=== PATIENT | male | born 1980 | race Two or more races ===

== ENCOUNTER 2025-01-01 09:18 | Outpatient (AMB) | payer OTHER, SELFPAY ==
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
[2025-01-01 09:24] VITALS: BMI 33.7
--- OUTSIDE RECORDS SUMMARY | 2025-01-01 10:20 | XMS_ITS ---
Author Name [facility] Organization Unknown Care Team Organization Name Specialty Phone Email Start Date End Da te [facility] Baldev Diop Primary [facility] 01/23/2023 [facility] Augusto Mai Primary Care 02/27/202211/20
--- OUTSIDE RECORDS SUMMARY | 2025-01-01 10:20 | XMS_ITS | Clinical Summary ---
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 4 Active sertraline (ZOLOFT) 100 mg tablet Take 1 tablet (100 mg total) by mouth 1 (one) time each day. 4 Active hydrocortisone (ANUSOL-HC) 25 mg suppository Insert 1 suppository (25 mg total) into the rectum 2 (two) times a day. For 14 days 4 Active sodium,potassiu m,mag sulfates (SUPREP) 17.5-3.13-1.6 gram recon soln bowel prep kit oral solution Take 177 mL by mouth See Admin Instructions for 2 doses. 4 Active polyethylene glycol (GoLYTELY) 236-22.74-6.74 -5.86 gram solution Take 240 mL by mouth once for 1 dose. Take 4L by mouth once for one dose. May substitue any PEG. Starting at 6PM the night before your procedure drink 1 8oz glasses at your own pace until rectals run clear. 4 Active amitriptyline (ELAVIL) 10 mg tablet Take 1 tablet (10 mg total) by mouth at bedtime. 4 Active ibuprofen (ADVIL,MOTRIN) 800 mg tablet Take 1 tablet (800 mg total) by mouth every 8 (eight) hours if needed. 4 Active QUEtiapine (SEROquel) 25 mg tablet Take 1 tablet (25 mg total) by mouth 2 (two) times a day. 4 Active traZODone (DESYREL) 150 mg tablet Take 1 tablet (150 mg total) by mouth at bedtime. 4 Active sertraline (ZOLOFT) 50 mg tablet Take 1 tablet (50 mg total) by mouth 1 (one) time each day. 4 Active nicotine (NICODERM CQ) 21 mg/[address] 1 patch on the skin 1 (one) time each day at the same time. For 42 days 4 Active GENERIC EXTERNAL MEDICATION Nifedipine 0.3% ointment Apply as a thin film TID to the perianal skin 9 Active albuterol HFA (ProAir HFA) 90 mcg/actuation inhalerIndicati ons:Routine general medical examination at a health care facility,Chroni c low back pain without sciatica, unspecified back pain laterality,Fibr omyalgia,Cervic al disc herniation,Drug -seeking behavior,Anxiet y,Depression, unspecified depression type,Chronic pain of left ankle,Generaliz ed abdominal pain,Wheeze Inhale 2 puffs by mouth every 4 (four) hours if needed for wheezing or shortness of breath. 8.5 g 5 5 10/21/19 26 Active omeprazole (PriLOSEC) [address] Rouse ons:Routine general medical examination at a health care facility,Chroni c low back pain without sciatica, unspecified back pain laterality,Fibr omyalgia,Cervic al disc herniation,Drug -seeking behavior,Anxiet y,Depression, unspecified depression type,Chronic pain of left ankle,Generaliz ed abdominal pain,Wheeze Take 1 capsule (20 mg total) by mouth 1 (one) time each day before breakfast. Do not crush or chew. 90 capsule 3 5 Active Active Problems Problem Noted Date Diagnosed Date Chronic low back pain without sciatica 5 Cervical disc herniation 04/19/2024 Fibromyalgia 06/03/2019 Drug-seeking behavior 05/15/2019 Depression 08/08/2018 Anal fissure 01/31/2018 Overview (04/19/2024): Follows with general surgery Foraminal stenosis of cervical region 10/04/2017 Overview (04/19/2024): S/p x ray 10/04/2017 Acromioclavicular joint separation, left, sequel a 07/01/2017 Overview (04/19/2024): Follows with orthopedic surgery Anxiety 04/08/2017 Overview (04/19/2024): Follows with [facility] External hemorrhoids 02/12/2017 Positive urine drug screen 07/04/2016 Overview (04/19/2024): +ve cocaine Encounters Date Type Department Care Team Description 10/20/2024 3:43 PM EDT - 10/20/2024 11:59 PM EDT Hospital Encounter [address] [phone] Routine general medical examination at a health care facility; Chronic low back pain without sciatica, unspecified back pain laterality; Fibromyalgia; Cervical disc herniation; Drug-seeking behavior; Anxiety; Depression, unspecified depression type; Chronic pain of left ankle; Generalized abdominal pain; Wheeze Discharge Disposition: Home or Self Care 10/20/2024 3:43 PM EDT - 10/20/2024 11:59 PM EDT Hospital Encounter [address] [phone] Routine general medical examination at a health care facility; Chronic low back pain without sciatica, unspecified back pain laterality; Fibromyalgia; Cervical disc herniation; Drug-seeking behavior; Anxiety; Depression, unspecified depression type; Chronic pain of left ankle; Generalized abdominal pain; Wheeze Discharge Disposition: Home or Self Care 10/20/2024 3:00 PM EDT Office Visit Adult Medicine [address] [phone] Baldev Diop PA Routine general medical examination at a health care facility (Primary Dx); Chronic low back pain without sciatica, unspecified back pain laterality; Fibromyalgia; Cervical disc herniation; Drug-seeking behavior; Anxiety; Depression, unspecified depression type; Chronic pain of left ankle; Generalized abdominal pain; Wheeze from Last 3 Months Immunizations Name Administration Dates Next Due Influenza Quadravalent, MDCK , 0.5ml, with preservative (Flucelvax) 6mo and older 03/01/2021,02/12/2017 Tdap Tetanus diptheria acell ular pertussis (Boostrix; Adacel) 7yo and older 02/12/2017 Surgical History Surgery Date Site/Laterality Comments OTHER SURGICAL HISTORY 2012 PROCEDURE: ---- OTHER ----; COMMENT: lumbar facectomy L5-S1, hemilaminectomy ANKLE SURGERY 2019 Left PROCEDURE: HISTORICAL ANKLE SURGERY; COMMENT: dr pierce COLONOSCOPY 07/31/2023 PROCEDURE: HISTORICAL COLONOSCOPY; COMMENT: 3 polyps 5 years [facility] Medical History Medical History Date Comments Degenerative disc disease at L5-S1 level DX:Degenerative disc disease at L5-S1 level; COMMENT: with lumbar disc herniation. Cervical disc herniation DX:Cerv ical disc herniation External hemorrhoids 02/12/2017 DX:External hemorrhoids Positive urine drug screen 07/04/2016 DX:Po sitive urine drug screen; COMMENT: +ve cocaine Anxiety 04/08/2017 DX:Anxiety; COMM ENT: Follows with [facility] Tobacco use 04/08/2017 DX:Tobacco use Acromioclavicular joint sepa ration, left, sequela 07/01/2017 DX:Acromioclavicular joint separation, left, sequela; COMMENT: Follows with orthopedic surgery Foraminal stenosis of cervical region 10/04/2017 DX:Foraminal stenosis of cervical region; COMMENT: S/p x ray 10/04/2017 Anal fissure 01/31/2018 DX:Anal fissure; COMMENT: Follows with general surgery Depression 08/08/2018 DX:Depression Family History Medical History Relation Name Comments Diabetes Father Colon cancer Maternal Grandfather Depression Mother Colon cancer Paternal Grandfather Diabetes Paternal Grandfather Diabetes Paternal Grandmother Relation Name Status Comments Brother Alive Daughter Alive Father Alive on dialysis Maternal Grandfather Mother Alive Paternal Grandfather Paternal Grandmother Son Alive Social History Tobacco Use Types Packs/Day Years Used Date Smoking Tobacco: Every Day Cigarettes Smokeless Tobacco: Current Tobacco Cessation:Ready to Q uit: Not Asked; Counseling Given: Not Answered Alcohol Use Standard Drinks/Week Comments No 0 (1 standard drink = 0.6 oz pur e alcohol) Sex and Gender Information Value Date Recorded Sex Assigned at Not on file Legal Sex Male 12:15 AM EST Gender Identity Not on file Sexual Orientation Not on file Occupation Industry Job Start Date Job End Date out of work possibly disabled Not on file Not on file Not on file Obstetrics History Last Filed Vital Signs Vital Sign Reading Time Taken Comments Blood Pressure 117/80 10/20/2024 3:06 PM EDT Pulse 89 10/20/2024 3:06 PM EDT Temperature 36.5 C (97.7 F) 10/20/2024 3:06 PM EDT Respiratory Rate 14 10/20/2024 3:06 PM EDT Oxygen Saturation 96% 09/18/2024 3:04 PM EDT Inhaled Oxygen Concentration - - Weight 97.8 kg (215 lb 9.6 oz) 10/20/2024 3:06 P M EDT Height 177.8 cm (5' 10 ) 10/20/2024 3:06 PM EDT Body Mass Index 30.94 10/20/2024 3:06 PM EDT Plan of Treatment Upcoming Encounters Date Type Department Care Team (Late st Contact Info) Description 03/23/2025 3:00 PM EST Office Visit Gastroenterology - [place] [address] [place] [id number] Nan Randall NP 175 [facility] [address] [place] [address] Health Maintenance Due Date Last Done Comments Hepatitis B Vaccines (1 of 3 - 19+ 3-dose series) 2000 Pneumococcal Vaccine: Pediatrics (0 to 5 Years) and At-Risk Patients (6 to 49 Years) (1 of 2 - PCV) 2000 Social Influencers of Health Screening 03/25/2022 Depression Screening 04/22/2024 02/13/2024 COVID-19 Vaccine ( - 2024-2 6 season) 2024 03/22/2021, 03/01/2021 Influenza Vaccine (#1) 2024 , 02/12/2017 DTaP,Tdap,and Td Vaccines (2 - Td or Tdap) 02/12/2027 02/12/2017 Colorectal Cancer Screening: Colonoscopy 07/30/2028 07/31/2023 Cholesterol Screening (Lipid Panel) 10/28/2029 10/28/2024, 07/09/2023 HIV Screening Completed 03/17/2018 Hepatitis C Screening Completed 03/17/2018 HIB Vaccines Aged Out No longer eligi ble based on patient's age to complete this topic HPV Vaccines Aged Out No longer eligi ble based on patient's age to complete this topic Hepatitis A Vaccines Aged Out No long er eligible based on patient's age to complete this topic IPV Vaccines Aged Out No longer eligi ble based on patient's age to complete this topic MMR Vaccines Aged Out No longer eligi ble based on patient's age to complete this topic Meningococcal ACWY Vaccine Aged Out N o longer eligible based on patient's age to complete this topic Meningococcal B Vaccine Aged Out No l onger eligible based on patient's age to complete this topic RSV Immunization Patients Under 20 months Aged Out No longer eligible b ased on patient's age to complete this topic Varicella Vaccines Aged Out No longer eligible based on patient's age to complete this topic Procedures Procedure Name Priority Date/Time Associated Diagnosis Comments HEMOGLOBIN A1C Routine 11/02/2024 8:59 AM EDT Impaired fasting blood sugar HELICOBACTER PYLORI BREATH TEST Routine 10/29/2024 9:24 AM EDT Routine general medical examination at a health care facility Chronic low back pain without sciatica, unspecified back pain laterality Fibromyalgia Cervical disc herniation Drug-seeking behavior Anxiety Depression, unspecified depression type Chronic pain of left ankle Generalized abdominal pain Wheeze CBC WITH AUTO DIFFERENTIAL Routine 10/28/2024 12:05 PM EDT Routine general medical examination at a health care facility Chronic low back pain without sciatica, unspecified back pain laterality Fibromyalgia Cervical disc herniation Drug-seeking behavior Anxiety Depression, unspecified depression type Chronic pain of left ankle Generalized abdominal pain Wheeze URINALYSIS WITH REFLEX MICROSCOPIC Routine 10/28/2024 12:05 PM EDT Routine general medical examination at a health care facility Chronic low back pain without sciatica, unspecified back pain laterality Fibromyalgia Cervical disc herniation Drug-seeking behavior Anxiety Depression, unspecified depression type Chronic pain of left ankle Generalized abdominal pain Wheeze LIPID PANEL WITH REFLEX TO DIRECT LDL Routine 10/28/2024 12:05 PM EDT Routine general medical examination at a health care facility Chronic low back pain without sciatica, unspecified back pain laterality Fibromyalgia Cervical disc herniation Drug-seeking behavior Anxiety Depression, unspecified depression type Chronic pain of left ankle Generalized abdominal pain Wheeze COMPREHENSIVE METABOLIC PANEL Routine 10/28/2024 12:05 PM EDT Routine general medical examination at a health care facility Chronic low back pain without sciatica, unspecified back pain laterality Fibromyalgia Cervical disc herniation Drug-seeking behavior Anxiety Depression, unspecified depression type Chronic pain of left ankle Generalized abdominal pain Wheeze CBC AND DIFFERENTIAL Routine 10/28/2024 12:05 PM EDT Routine general medical examination at a health care facility Chronic low back pain without sciatica, unspecified back pain laterality Fibromyalgia Cervical disc herniation Drug-seeking behavior Anxiety Depression, unspecified depression type Chronic pain of left ankle Generalized abdominal pain Wheeze URINALYSIS WITH REFLEX MICROSCOPIC Routine 10/28/2024 12:05 PM EDT Routine general medical examination at a health care facility Chronic low back pain without sciatica, unspecified back pain laterality Fibromyalgia Cervical disc herniation Drug-seeking behavior Anxiety Depression, unspecified depression type Chronic pain of left ankle Generalized abdominal pain Wheeze CULTURE URINE Routine 10/28/2024 12:05 PM EDT Routine general medical examination at a health care facility Chronic low back pain without sciatica, unspecified back pain laterality Fibromyalgia Cervical disc herniation Drug-seeking behavior Anxiety Depression, unspecified depression type Chronic pain of left ankle Generalized abdominal pain Wheeze XR FOOT 3+ VIEWS LEFT Routine 10/20/2024 3:54 PM EDT Routine general medical examination at a health care facility Chronic low back pain without sciatica, unspecified back pain laterality Fibromyalgia Cervical disc herniation Drug-seeking behavior Anxiety Depression, unspecified depression type Chronic pain of left ankle Generalized abdominal pain Wheeze XR ANKLE 3+ VIEWS LEFT Routine 3:53 PM EDT Routine general medical examination at a health care facility Chronic low back pain without sciatica, unspecified back pain laterality Fibromyalgia Cervical disc herniation Drug-seeking behavior Anxiety Depression, unspecified depression type Chronic pain of left ankle Generalized abdominal pain Wheeze DEPRESSION SCREENING Routine 02/13/2024 HEPATITIS C SCREENING Routine 03/17/2018 HIV SCREENING Routine 03/17/2018 from Last 3 Months or Most Recently Relevant to Health Maintenance Results * Hemoglobin A1c (11/02/2024 8:59 AM EDT) Hemoglobin A1C 6.1 <6.5 % LAB CHEMISTRY METHOD 11/02/2024 12:49 PM EDT [facility] Mean Bld Glu Estim. 128 mg/dL LAB CHEMISTRY METHOD 11/02/2024 12:49 PM EDT [facility] Blood Venous blood specimen / Unknown Venipuncture / Unknown 11/02/2024 8:59 AM EDT 11/02/2024 8:59 AM EDT Baldev GUY LAB BLOOD ORDERABLES Gavi l Result [facility] [address] [place] [address], [place] [phone] * Helicobacter pylori breath test (10/29/2024 9:24 AM EDT) H Pylori Breath Test Negative Negative LAB CHEMISTRY METHOD 10/29/2024 12:12 PM EDT [facility] Breath Oral cavity structure / Unknown Non-blood Collection / Unknown 10/29/2024 9:24 AM EDT 10/29/2024 9:24 AM EDT Baldev GUY LAB BODY FLUIDS AND STOOL S ORDERABLES Final Result [facility] [address] [place] [address], [place] [phone] * (ABNORMAL) Urinalysis with reflex microscopic (10/28/2024 12:05 PM EDT) Specific [place] Urine 1.035(H) 1.003 - 1.030 LAB URINALYSIS - [facility]OMATED [facility], Urine 5.0 5.0 - 8.0 pH LAB URINALYSIS - AUTOMATED METHOD 10/28/2024 3:06 PM [facility] Leukocytes, Urine Negative Negative LAB URINALYSIS - AUTOMATED METHOD 10/28/2024 3:06 PM [facility] Nitrite, Urine Negative Negative LAB URINALYSIS - AUTOMATED METHOD 10/28/2024 3:06 PM [facility] Protein, Urine Trace <=Trace mg/dL LAB URINALYSIS - AUTOMATED METHOD 10/28/2024 3:06 PM [facility] Glucose, Urine Negative Negative mg/dL LAB URINALYSIS - AUTOMATED METHOD 10/28/2024 3:06 PM [facility] Ketones, Urine Trace(A) Negative mg/dL LAB URINALYSIS - AUTOMATED METHOD 10/28/2024 3:06 PM [facility] Urobilinogen, Urine 1.0 0.2 - 1.0 mg/dL LAB URINALYSIS - AUTOMATED METHOD 10/28/2024 3:06 PM [facility] Bilirubin, Urine Negative Negative LAB URINALYSIS - AUTOMATED METHOD 10/28/2024 3:06 PM [facility] Blood, Urine Negative Negative LAB URINALYSIS - AUTOMATED METHOD 10/28/2024 3:06 PM EDT [facility] Urine Urine specimen obtained by clean catch procedure / Unknown Non-blood Collection / Unknown 10/28/2024 12:05 PM EDT 10/28/2024 12:05 PM EDT Baldev GUY LAB URINE ORDERABLES Gavi l Result [facility] [address] [place] [address], [place] [phone] * (ABNORMAL) Lipid panel with reflex to direct LDL (10/28/2024 12:05 PM EDT) Cholesterol 181 0 - 200 mg/dL LAB CHEMISTRY METHOD 10/28/2024 3:26 PM EDT [facility] Triglycerides 346(H) 0 - 150 mg/dL LAB CHEMISTRY METHOD 10/28/2024 3:26 PM EDT [facility] HDL 38(L) >=40 mg/dL LAB CHEMISTRY METHOD 10/28/2024 3:26 PM EDT [facility] LDL Calculated 74 0 - 100 mg/dL LAB CHEMISTRY METHOD 10/28/2024 3:26 PM EDT [facility] VLDL Cholesterol Gabino 69.2 mg/dL LAB CHEMISTRY METHOD 10/28/2024 3:26 PM EDT [facility] Non HDL Chol. (LDL+VLDL) 143 <145 mg/dL LAB CHEMISTRY METHOD 10/28/2024 3:26 PM EDT [facility] Chol/HDL Ratio 4.8(H) 0.0 - 4.4 LAB CHEMISTRY METHOD 10/28/2024 3:26 PM [facility] Blood Venous blood specimen / Unknown Venipuncture / Unknown 10/28/2024 12:05 PM EDT 10/28/2024 12:05 PM EDT Baldev GUY LAB BLOOD ORDERABLES Gavi aguirre Result [facility] [address] [place] [address], * (ABNORMAL) CBC auto differential (10/28/2024 12:05 PM EDT) WBC 7.9 4.8 - 10.8 K/mcL LAB HEMETOLOGY METHOD 10/28/2024 2:58 PM EDT [facility] RBC 5.20 4.50 - 5.50 M/mcL LAB HEMETOLOGY METHOD 10/28/2024 2:58 PM EDT [facility] Hemoglobin 15.6 13.5 - 17.5 g/dL LAB HEMETOLOGY METHOD 10/28/2024 2:58 PM EDT [facility] Hematocrit 47.4 42.0 - 54.0 % LAB HEMETOLOGY METHOD 10/28/2024 2:58 PM EDT [facility] MCV 91.3 79.0 - 98.0 FL LAB HEMETOLOGY METHOD 10/28/2024 2:58 PM EDT [facility] MCH 30.1 27.0 - 32.0 pcg LAB HEMETOLOGY METHOD 10/28/2024 2:58 PM EDT [facility] MCHC 32.9 32.0 - 37.0 g/dL LAB HEMETOLOGY METHOD 10/28/2024 2:58 PM EDT [facility] RDW 13.4 11.0 - 15.0 % LAB HEMETOLOGY METHOD 10/28/2024 2:58 PM EDT [facility] Platelets 310 130 - 400 K/mcL LAB HEMETOLOGY METHOD 10/28/2024 2:58 PM EDT [facility] MPV 11.2(H) 7.0 - 11.0 FL LAB HEMETOLOGY METHOD 10/28/2024 2:58 PM EDT [facility] NRBC 0.0 <1.0 % LAB HEMETOLOGY METHOD 10/28/2024 2:58 PM EDT [facility] NRBC Absolute 0.00 <0.10 K/mcL LAB HEMETOLOGY METHOD 10/28/2024 2:58 PM [facility] Neutrophils Relative 57.6 % LAB [facility]EMETOLOGY METHOD 10/28/2024 2:58 PM [facility] Lymphocytes Relative 34.6 % LAB HEMETOLOGY METHOD 10/28/2024 2:58 PM [facility] Monocytes Relative 5.6 % LAB HEMETOLOGY METHOD 10/28/2024 2:58 PM [facility] Eosinophils Relative 1.5 % LAB HEMETOLOGY METHOD 10/28/2024 2:58 PM [facility] Basophils Relative 0.4 % LAB HEMETOLOGY METHOD 10/28/2024 2:58 PM [facility] Immature Granulocytes Relative 0.3 % LAB HEMETOLOGY METHOD 10/28/2024 2:58 PM [facility] Neutrophils Absolute 4.53 1.50 - 7.00 K/mcL LAB HEMETOLOGY METHOD 10/28/2024 2:58 PM [facility] Lymphocytes Absolute 2.72 1.00 - 5.00 K/mcL LAB HEMETOLOGY METHOD 10/28/2024 2:58 PM [facility] Monocytes Absolute 0.44 0.20 - 1.00 K/mcL LAB HEMETOLOGY METHOD 10/28/2024 2:58 PM [facility] Eosinophils Absolute 0.12 0.00 - 0.50 K/mcL LAB HEMETOLOGY METHOD 10/28/2024 2:58 PM [facility] Basophils Absolute 0.03 0.00 - 0.20 K/mcL LAB HEMETOLOGY METHOD 10/28/2024 2:58 PM EDT [facility] Immature Granulocytes Absolute 0.02 0.00 - 0.03 K/mcL LAB HEMETOLOGY METHOD 10/28/2024 2:58 PM EDT [facility] Blood Venous blood specimen / Unknown Venipuncture / Unknown 10/28/2024 12:05 PM EDT 10/28/2024 12:05 PM EDT Baldev GUY LAB BLOOD ORDERABLES Gavi l Result Performing Organization Address City/[facility]/ZIP Co de Phone Number [facility] [address] [place] [address], [place] [phone] * Culture urine (10/28/2024 12:05 PM EDT) Culture, Urine No growth 10/29/2024 9:55 AM EDT [facility] Urine Urine specimen obtained by clean catch procedure / Unknown Non-blood Collection / Unknown 10/28/2024 12:05 PM EDT 10/28/2024 12:05 PM EDT Baldev GUY LAB MICROBIOLOGY - GENERA L ORDERABLES Final Result Performing Organization Address City/[facility]/ZIP Co de Phone Number [facility] [address] [place] [address], [place] [phone] * (ABNORMAL) Comprehensive metabolic panel (10/28/2024 12:05 PM EDT) Sodium 139 133 - 145 mmol/L LAB CHEMISTRY METHOD 10/28/2024 3:26 PM EDT [facility] Potassium 4.0 3.5 - 5.5 mmol/L LAB CHEMISTRY METHOD 10/28/2024 3:26 PM EDT [facility] Chloride 104 96 - 110 mmol/L LAB CHE[facility]STRY METHOD [facility]/28[facility]2024 3:[facility] CO2 30 21 - 32 mmol/L LAB CHEMISTRY METHOD 10/28/2024 3:26 PM [facility] Anion Gap 5 3 - 11 LAB CHEMISTRY METHOD 10/28/2024 3:26 PM [facility] Glucose 147(H) 70 - 100 mg/dL LAB CHEMISTRY METHOD 10/28/2024 3:26 PM [facility] BUN 14 5 - 25 mg/dL LAB CHEMISTRY METHOD 10/28/2024 3:26 PM [facility] Creatinine 0.98 0.70 - 1.30 mg/dL LAB CHEMISTRY METHOD 10/28/2024 3:26 PM [facility] eGFR 98 >=60 mL/min/1. 73m2 LAB CHEMISTRY METHOD 10/28/2024 3:26 PM [facility] Comment:Calculation based on the Chronic Kidney Disease Epidemiology Collaboration (CKD-EPI) equation refit without adjustment for race. BUN/Creatinine Ratio 14.3 LAB CHEMISTRY METHOD 10/28/2024 3:26 PM [facility] Calcium 9.8 8.5 - 10.5 mg/dL LAB CHEMISTRY METHOD 10/28/2024 3:26 PM [facility] AST (SGOT) 22 10 - 42 unit/L LAB CHEMISTRY METHOD 10/28/2024 3:26 PM [facility] ALT (SGPT) 69(H) 10 - 60 unit/L LAB CHEMISTRY METHOD 10/28/2024 3:26 PM [facility] Alkaline Phosphatase 87 42 - 121 unit/L LAB CHEMISTRY METHOD 10/28/2024 3:26 PM [facility] Total Protein 7.2 6.0 - 8.0 g/dL LAB CHEMISTRY METHOD 10/28/2024 3:26 PM [facility] Albumin 4.1 3.2 - 5.0 g/dL LAB CHEMISTRY METHOD 10/28/2024 3:26 PM EDT [facility] Total Bilirubin 0.3 0.0 - 1.4 mg/dL LAB CHEMISTRY METHOD 10/28/2024 3:26 PM EDT [facility] Blood Venous blood specimen / Unknown Venipuncture / Unknown 10/28/2024 12:05 PM EDT 10/28/2024 12:05 PM EDT Baldev GUY LAB BLOOD ORDERABLES Gavi aguirre Result [facility] [address] [place] [address], * XR Foot 3+ Views Left (10/20/2024 3:54 PM EDT) Anatomical Region Laterality Modality Lower Extremities, Foot Left Radiogra phic Imaging 10/21/2024 8:28 AM EDT Impressions 10/21/2024 8:36 AM EDT No acute bony abnormality. POS - [id number] -------- FINAL REPORT -------- Dictated By: Tiffany Santamaria Dictated Date: 10/21/2024 08:28 ET Assigned Physician: Tiffany Santamaria Reviewed and Electronically Signed By: Tiffany Santamaria Signed Date: 10/21/2024 08:36 ET Workstation ID: [id number] Transcribed By: Self Edit Transcribed Date: 10/21/2024 08:28 ET Narrative 10/21/2024 8:36 AM EDT EXAM: Left foot x-ray HISTORY: Left foot pain. COMPARISON: 02/04/2017 FINDINGS: 3 views were performed. No evidence of an acute fracture or malalignment. Stable deformity of the medial aspect of the talus. Joint spaces are preserved. No new soft tissue calcifications. Procedure Note Tiffany Santamaria MD - 10/21/2024 EXAM: Left foot x-ray HISTORY: Left foot pain. COMPARISON: 02/04/2017 FINDINGS: 3 views were performed. No evidence of an acute fracture or malalignment. Stable deformity of themedial aspect of the talus. Joint spaces are preserved. No new soft tissuecalcifications. IMPRESSION: No acute bony abnormality. POS - [id number] -------- FINAL REPORT -------- Dictated By: Tiffany Santamaria Dictated Date: 10/21/2024 08:28 ET Assigned Physician: Tiffany Santamaria Reviewed and Electronically Signed By: Tiffany Santamaria Signed Date: 10/21/2024 08:36 ET Workstation ID: [id number] Transcribed By: Self Edit Transcribed Date: 10/21/2024 08:28 ET Baldev GUY IMG XR PROCEDURES Final R esult * XR Ankle 3+ Views Left (10/20/2024 3:53 PM EDT) Anatomical Region Laterality Modality Lower Extremities, Ankle Left Radiogr aphic Imaging 10/21/2024 8:36 AM EDT Impressions 10/21/2024 8:40 AM EDT No acute bony abnormality. Chronic findings. POS - [id number] -------- FINAL REPORT -------- Dictated By: Tiffany Santamaria Dictated Date: 10/21/2024 08:36 ET Assigned Physician: Tiffany Santamaria Reviewed and Electronically Signed By: Tiffany Santamaria Signed Date: 10/21/2024 08:40 ET Workstation ID: [id number] Transcribed By: Self Edit Transcribed Date: 10/21/2024 08:36 ET Narrative 10/21/2024 8:40 AM EDT EXAM: Left ankle x-ray HISTORY: Left ankle pain. COMPARISON: 07/09/2023 FINDINGS: No evidence of an acute fracture. Stable deformities of the medial aspect of the talus and involving the medial malleolus. Stable mild widening of the medial clear space. Spurring around the hindfoot with preserved joint spaces. No new destructive bone lesion. Procedure Note Tiffany Santamaria MD - 10/21/2024 EXAM: Left ankle x-ray HISTORY: Left ankle pain. COMPARISON: 07/09/2023 FINDINGS: No evidence of an acute fracture. Stable deformities of the medial aspectof the talus and involving the medial malleolus. Stable mild widening ofthe medial clear space. Spurring around the hindfoot with preserved jointspaces. No new destructive bone lesion. IMPRESSION: No acute bony abnormality. Chronic findings. POS - [id number] -------- FINAL REPORT -------- Dictated By: Tiffany Santamaria Dictated Date: 10/21/2024 08:36 ET Assigned Physician: Tiffany Santamaria Reviewed and Electronically Signed By: Tiffany Santamaria Signed Date: 10/21/2024 08:40 ET Workstation ID: [id number] Transcribed By: Self Edit Transcribed Date: 10/21/2024 08:36 ET Baldev GUY IMG XR PROCEDURES Final R esult * Depression Screening (02/13/2024) Depression Screening abstracted Result [facility] Historical Provider MD HEALTH MAINTENANCE Final Result * HIV Screening (03/17/2018) [facility] HIV Screening abstracted [facility] Provider MD HEALTH MAINTENANCE Final Result * Hepatitis C Screening (03/17/2018) Pathologist [facility] Hepatitis C Screening abstracted [facility] Provider MD HEALTH MAINTENANCE Final Result from Last 3 Months or Most Recently Relevant to Health Maintenance Insurance [employer] [employer] [employer] 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
== END 2025-01-01 10:12 | disposition home or self-care (01) ==
PROVIDERS: PCP Internal Medicine; Visit Provider Student in an Organized Health Care Education/Training Program
DX: M67.472 Ganglion, left ankle and foot (principal); M25.373 Other instability, unspecified ankle; S93.402A Sprain of unspecified ligament of left ankle, initial encounter
CPT/HCPCS: 99204

== ENCOUNTER 2025-01-15 08:59 | Outpatient (AMB) | payer OTHER, SELFPAY ==
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
--- OUTSIDE RECORDS SUMMARY | 2025-01-15 09:35 | XMS_ITS | Clinical Summary ---
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 Name Role Phone Baldev Diop Primary Care Provider [phone] Allergies Active Allergy Reactions Criticality Noted Date [...] surgery Anxiety 04/08/2017 Overview (04/19/2024): Follows with [facility] External hemorrhoids 02/12/2017 Positive urine drug screen 07/04/2016 Overview (04/19/2024): +ve cocaine Encounters Date Type Department Care Team Description 10/20/2024 3:43 PM EDT - 10/20/2024 11:59 PM EDT Hospital Encounter [address] [phone] Routine general medical examination at a health care facility; Chronic low back pain without sciatica, unspecified back pain laterality; Fibromyalgia; Cervical disc herniation; Drug-seeking behavior; Anxiety; Depression, unspecified depression type; Chronic pain of left ankle; Generalized abdominal pain; Wheeze Discharge Disposition: Home or Self Care 10/20/2024 3:43 PM EDT - 10/20/2024 11:59 PM EDT Hospital Encounter [address] [phone] Routine general medical examination at a health care facility; Chronic low back pain without sciatica, unspecified back pain laterality; Fibromyalgia; Cervical disc herniation; Drug-seeking behavior; Anxiety; Depression, unspecified depression type; Chronic pain of left ankle; Generalized abdominal pain; Wheeze Discharge Disposition: Home or Self Care 10/20/2024 3:00 PM EDT Office Visit Adult Medicine [address] [phone] Baldev Diop PA Routine general medical examination [...] Anxiety 04/08/2017 DX:Anxiety; COMM ENT: Follows with [facility] Tobacco use 04/08/2017 DX:Tobacco use Acromioclavicular [...] 3:00 PM EST Office Visit Gastroenterology - [place] [address] [place] [id number] Nan Randall NP 175 [facility] [address] [place] [address] Health Maintenance Due Date Last Done Comments [...] LAB CHEMISTRY METHOD 11/02/2024 12:49 PM EDT [facility] Mean Bld Glu Estim. 128 mg/dL LAB CHEMISTRY METHOD 11/02/2024 12:49 PM EDT [facility] Blood Venous blood specimen / Unknown Venipuncture / Unknown 11/02/2024 8:59 AM EDT 11/02/2024 8:59 AM EDT Baldev GUY LAB BLOOD ORDERABLES Gavi l Result [facility] [address] [place] [address], [place] [phone] * Helicobacter pylori breath test (10/29/2024 9:24 AM EDT) H Pylori Breath Test Negative Negative LAB CHEMISTRY METHOD 10/29/2024 12:12 PM EDT [facility] Breath Oral cavity structure / Unknown Non-blood Collection / Unknown 10/29/2024 9:24 AM EDT 10/29/2024 9:24 AM EDT Baldev GUY LAB BODY FLUIDS AND STOOL S ORDERABLES Final Result [facility] [address] [place] [address], [place] [phone] * (ABNORMAL) Urinalysis with reflex microscopic (10/28/2024 12:05 PM EDT) Specific [place] Urine 1.035(H) 1.003 - 1.030 LAB URINALYSIS - AUTOMATED METHOD [facility] pH, Urine 5.0 5.0 - 8.0 pH LAB URINALYSIS - AUTOMATED METHOD 10/28/2024 3:06 PM [facility] Leukocytes, Urine Negative Negative LAB URINALYSIS - AUTOMATED METHOD 10/28/2024 3:06 PM [facility] Nitrite, Urine Negative Negative LAB URINALYSIS - AUTOMATED METHOD 10/28/2024 3:06 PM [facility] Protein, Urine Trace <=Trace mg/dL LAB URINALYSIS - AUTOMATED METHOD 10/28/2024 3:06 PM [facility] Glucose, Urine Negative Negative mg/dL LAB URINALYSIS - AUTOMATED METHOD 10/28/2024 3:06 PM [facility] Ketones, Urine Trace(A) Negative mg/dL LAB URINALYSIS - AUTOMATED METHOD 10/28/2024 3:06 PM [facility] Urobilinogen, Urine 1.0 0.2 - 1.0 mg/dL LAB URINALYSIS - AUTOMATED METHOD 10/28/2024 3:06 PM [facility] Bilirubin, Urine Negative Negative LAB URINALYSIS - AUTOMATED METHOD 10/28/2024 3:06 PM [facility] Blood, Urine Negative Negative LAB URINALYSIS - AUTOMATED METHOD 10/28/2024 3:06 PM EDT [facility] Urine Urine specimen obtained by clean catch procedure / Unknown Non-blood Collection / Unknown 10/28/2024 12:05 PM EDT 10/28/2024 12:05 PM EDT Baldev GUY LAB URINE ORDERABLES Gavi l Result [facility] [address] [place] [address], [place] [phone] * (ABNORMAL) Lipid panel with reflex to direct LDL (10/28/2024 12:05 PM EDT) Cholesterol 181 0 - 200 mg/dL LAB CHEMISTRY METHOD 10/28/2024 3:26 PM EDT [facility] Triglycerides 346(H) 0 - 150 mg/dL LAB CHEMISTRY METHOD 10/28/2024 3:26 PM EDT [facility] HDL 38(L) >=40 mg/dL LAB CHEMISTRY METHOD 10/28/2024 3:26 PM EDT [facility] LDL Calculated 74 0 - 100 mg/dL LAB CHEMISTRY METHOD 10/28/2024 3:26 PM EDT [facility] VLDL Cholesterol Gabino 69.2 mg/dL LAB CHEMISTRY METHOD 10/28/2024 3:26 PM EDT [facility] Non HDL Chol. (LDL+VLDL) 143 <145 mg/dL LAB CHEMISTRY METHOD 10/28/2024 3:26 PM EDT [facility] Chol/HDL Ratio 4.8(H) 0.0 - 4.4 LAB CHEMISTRY METHOD 10/28/2024 3:26 PM [facility] Blood Venous blood specimen / Unknown Venipuncture / Unknown 10/28/2024 12:05 PM EDT 10/28/2024 12:05 PM EDT Baldev GUY LAB BLOOD ORDERABLES Gavi aguirre Result [facility] [address] [place] [address], * (ABNORMAL) CBC auto differential (10/28/2024 12:05 PM EDT) WBC 7.9 4.8 - 10.8 K/mcL LAB HEMETOLOGY METHOD 10/28/2024 2:58 PM EDT [facility] RBC 5.20 4.50 - 5.50 M/mcL LAB HEMETOLOGY METHOD 10/28/2024 2:58 PM EDT [facility] Hemoglobin 15.6 13.5 - 17.5 g/dL LAB HEMETOLOGY METHOD 10/28/2024 2:58 PM EDT [facility] Hematocrit 47.4 42.0 - 54.0 % LAB HEMETOLOGY METHOD 10/28/2024 2:58 PM EDT [facility] MCV 91.3 79.0 - 98.0 FL LAB HEMETOLOGY METHOD 10/28/2024 2:58 PM EDT [facility] MCH 30.1 27.0 - 32.0 pcg LAB HEMETOLOGY METHOD 10/28/2024 2:58 PM EDT [facility] MCHC 32.9 32.0 - 37.0 g/dL LAB HEMETOLOGY METHOD 10/28/2024 2:58 PM EDT [facility] RDW 13.4 11.0 - 15.0 % LAB HEMETOLOGY METHOD 10/28/2024 2:58 PM EDT [facility] Platelets 310 130 - 400 K/mcL LAB HEMETOLOGY METHOD 10/28/2024 2:58 PM EDT [facility] MPV 11.2(H) 7.0 - 11.0 FL LAB HEMETOLOGY METHOD 10/28/2024 2:58 PM EDT [facility] NRBC 0.0 <1.0 % LAB HEMETOLOGY METHOD 10/28/2024 2:58 PM EDT [facility] NRBC Absolute 0.00 <0.10 K/mcL LAB HEMETOLOGY METHOD 10/28/2024 2:58 PM [facility] Neutrophils Relative 57.6 % LAB HEMETOLOGY METHOD [facility] Lymphocytes Relative 34.6 % LAB HEMETOLOGY METHOD [facility]/28[facility]2024 [facility] Monocytes Relative 5.6 % LAB HEMETOLOGY METHOD 10/28/2024 2:58 PM [facility] Eosinophils Relative 1.5 % LAB HEMETOLOGY METHOD 10/28/2024 2:58 PM [facility] Basophils Relative 0.4 % LAB HEMETOLOGY METHOD 10/28/2024 2:58 PM [facility] Immature Granulocytes Relative 0.3 % LAB HEMETOLOGY METHOD 10/28/2024 2:58 PM [facility] Neutrophils Absolute 4.53 1.50 - 7.00 K/mcL LAB HEMETOLOGY METHOD 10/28/2024 2:58 PM [facility] Lymphocytes Absolute 2.72 1.00 - 5.00 K/mcL LAB HEMETOLOGY METHOD 10/28[facility]2024 2[facility] Monocytes Absolute 0.44 0.20 - 1.00 K/mcL LAB HEMETOLOGY METHOD 10/28/2024 2[facility] Eosinophils Absolute 0.12 0.00 - 0.50 K/mcL LAB HEMETOLOGY METHOD 10/28/2024 2:58 PM [facility] Basophils Absolute 0.03 0.00 - 0.20 K/mcL LAB HEMETOLOGY METHOD 10/28/2024 2:58 PM EDT [facility] Immature Granulocytes Absolute 0.02 0.00 - 0.03 K/mcL LAB HEMETOLOGY METHOD 10/28/2024 2:58 PM EDT [facility] Blood Venous blood specimen / Unknown Venipuncture / Unknown 10/28/2024 12:05 PM EDT 10/28/2024 12:05 PM EDT Baldev GUY LAB BLOOD ORDERABLES Gavi l Result Performing Organization Address City/[facility]/ZIP Co de Phone Number [facility] [address] [place] [address], [place] [phone] * Culture urine (10/28/2024 12:05 PM EDT) Culture, Urine No growth 10/29/2024 9:55 AM EDT [facility] Urine Urine specimen obtained by clean catch procedure / Unknown Non-blood Collection / Unknown 10/28/2024 12:05 PM EDT 10/28/2024 12:05 PM EDT Baldev GUY LAB MICROBIOLOGY - GENERA L ORDERABLES Final Result Performing Organization Address City/[facility]/ZIP Co de Phone Number [facility] [address] [place] [address], [place] [phone] * (ABNORMAL) Comprehensive metabolic panel (10/28/2024 12:05 PM EDT) Sodium 139 133 - 145 mmol/L LAB CHEMISTRY METHOD 10/28/2024 3:26 PM EDT [facility] Potassium 4.0 3.5 - 5.5 mmol/L LAB CHEMISTRY METHOD 10/28/2024 3:26 PM EDT [facility] Chloride 104 96 - 110 mmol/L LAB CHEMISTRY METHOD [facility]/28[facility]2024 [facility] CO2 30 21 - 32 mmol/L LAB CHEMISTRY METHOD 10/28/2024 3:26 PM [facility] Anion Gap 5 3 - 11 LAB CHEMISTRY METHOD 10/28/2024 3:26 PM [facility] Glucose 147(H) 70 - 100 mg/dL LAB CHEMISTRY METHOD 10/28/2024 3:26 PM [facility] BUN 14 5 - 25 mg/dL LAB CHEMISTRY METHOD 10/28/2024 3:26 PM [facility] Creatinine 0.98 0.70 - 1.30 mg/dL LAB CHEMISTRY METHOD 10/28/2024 3:26 PM [facility] eGFR 98 >=60 mL/min/1. 73m2 LAB CHEMISTRY METHOD 10/28/2024 3:26 PM [facility] Comment:Calculation based on the Chronic Kidney Disease Epidemiology Collaboration (CKD-EPI) equation refit without adjustment for race. BUN/Creatinine Ratio 14.3 LAB CHEMISTRY METHOD 10/28/2024 3:26 PM [facility] Calcium 9.8 8.5 - 10.5 mg/dL LAB CHEMISTRY METHOD 10/28/2024 3:26 PM [facility] AST (SGOT) 22 10 - 42 unit/L LAB CHEMISTRY METHOD 10/28/2024 3:26 PM [facility] ALT (SGPT) 69(H) 10 - 60 unit/L LAB CHEMISTRY METHOD 10/28/2024 3:26 PM [facility] Alkaline Phosphatase 87 42 - 121 unit/L LAB CHEMISTRY METHOD 10/28/2024 3:26 PM [facility] Total Protein 7.2 6.0 - 8.0 g/dL LAB CHEMISTRY METHOD 10/28/2024 3:26 PM [facility] Albumin 4.1 3.2 - 5.0 g/dL LAB CHEMISTRY METHOD 10/28/2024 3:26 PM EDT [facility] Total Bilirubin 0.3 0.0 - 1.4 mg/dL LAB CHEMISTRY METHOD 10/28/2024 3:26 PM EDT [facility] Blood Venous blood specimen / Unknown Venipuncture / Unknown 10/28/2024 12:05 PM EDT 10/28/2024 12:05 PM EDT Baldev GUY LAB BLOOD ORDERABLES Gavi aguirre Result [facility] [address] [place] [address], * XR Foot 3+ Views Left (10/20/2024 3:54 PM EDT) Anatomical Region Laterality Modality Lower Extremities, Foot Left Radiogra phic Imaging 10/21/2024 8:28 AM EDT Impressions 10/21/2024 8:36 AM EDT No acute bony abnormality. POS - [id number] -------- FINAL REPORT -------- Dictated By: Tiffayn Santamaria Dictated Date: 10/21/2024 08:28 ET Assigned Physician: Tiffany Santamaria Reviewed and Electronically Signed By: Tiffany Santamaria Signed Date: 10/21/2024 08:36 ET Workstation ID: [id number] Transcribed By: Self Edit Transcribed Date: 10/21/2024 [...] IMPRESSION: No acute bony abnormality. POS - [id number] -------- FINAL REPORT -------- Dictated By: Tiffany Santamaria Dictated Date: 10/21/2024 08:28 ET Assigned Physician: Tiffany Santamaria Reviewed and Electronically Signed By: Tiffany Santamaria Signed Date: 10/21/2024 08:36 ET Workstation ID: [id number] Transcribed By: Self Edit Transcribed Date: 10/21/2024 08:28 ET Baldev GUY IMG XR PROCEDURES Final R esult * XR Ankle 3+ Views Left (10/20/2024 3:53 PM EDT) Anatomical Region Laterality Modality Lower Extremities, Ankle Left Radiogr aphic Imaging 10/21/2024 8:36 AM EDT Impressions 10/21/2024 8:40 AM EDT No acute bony abnormality. Chronic findings. POS - [id number] -------- FINAL REPORT -------- Dictated By: Tiffany Santamaria Dictated Date: 10/21/2024 08:36 ET Assigned Physician: Tiffany Santamaria Reviewed and Electronically Signed By: Tiffany Santamaria Signed Date: 10/21/2024 08:40 ET Workstation ID: [id number] Transcribed By: Self Edit Transcribed Date: 10/21/2024 [...] acute bony abnormality. Chronic findings. POS - [id number] -------- FINAL REPORT -------- Dictated By: Tiffany Santamaria Dictated Date: 10/21/2024 08:36 ET Assigned Physician: Tiffany Santamaria Reviewed and Electronically Signed By: Tiffany Santamaria Signed Date: 10/21/2024 08:40 ET Workstation ID: [id number] Transcribed By: Self Edit Transcribed Date: 10/21/2024 08:36 ET Baldev GUY IMG XR PROCEDURES Final R esult * Depression Screening (02/13/2024) Depression Screening abstracted Result [facility] Historical Provider MD HEALTH MAINTENANCE Final Result * HIV Screening (03/17/2018) [facility] HIV Screening abstracted [facility] Provider MD HEALTH MAINTENANCE Final Result * Hepatitis C Screening (03/17/2018) Pathologist [facility] Hepatitis C Screening abstracted [facility] Provider MD HEALTH MAINTENANCE Final Result from Last 3 Months or Most Recently Relevant to Health Maintenance Insurance [facility] [employer] 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
== END 2025-01-15 09:29 | disposition home or self-care (01) ==
LOC: HO.HPODS 08:59
PROVIDERS: PCP Internal Medicine; Visit Provider Student in an Organized Health Care Education/Training Program
DX: S93.402A Sprain of unspecified ligament of left ankle, initial encounter (principal); M25.373 Other instability, unspecified ankle; M67.472 Ganglion, left ankle and foot; M25.572 Pain in left ankle and joints of left foot; M25.472 Effusion, left ankle
CPT/HCPCS: 99213

== ENCOUNTER → 2025-01-15 08:59 | Outpatient (BNVA) | payer OTHER, SELFPAY | PROVIDERS: PCP Internal Medicine; Visit Provider Student in an Organized Health Care Education/Training Program | DX: S93.402A Sprain of unspecified ligament of left ankle, initial encounter (principal); M25.372 Other instability, left ankle; M67.472 Ganglion, left ankle and foot; M25.572 Pain in left ankle and joints of left foot; M25.472 Effusion, left ankle | CPT/HCPCS: 29540 ==

== ENCOUNTER 2025-01-18 11:58 | Outpatient (REF) | payer OTHER, SELFPAY ==
--- NOTE | ~2025-01-18 | XR_ITS ---
EXAMINATION: XR ANKLE, left CLINICAL INFORMATION: S93.402A - Sprain of unspecified ligament of left ankle, initial encounter COMPARISON: None available. TECHNIQUE: AP, lateral, and mortise views lower extremity joint, ankle. FINDINGS: Ankle mortise is congruent. There is no widening of the syndesmosis. Talar dome is intact. There is a bony spur or exostosis or ossification dorsal to the junction of the talar neck and down, just anterior to the ankle joint. There is a posterior process of talus. There are no calcaneal enthesophyte(s). XR/XR ankle LT min 3V IMPRESSION: Possible anterior ankle impingement. Correlate for signs symptoms. There is a bony prominence anterior the ankle joint and dorsal to the junction of the talar neck and dome. There is a posterior process of talus with degenerative changes. Correlate for posterior ankle pain. Electronically signed by: Bernard Zuluaga MD 01/18/2025 12:23 PM EDT
== END 2025-01-18 11:59 | disposition home or self-care (01) ==
LOC: HO.XRAY 11:58
PROVIDERS: PCP Internal Medicine; Visit Provider Student in an Organized Health Care Education/Training Program
DX: S93.402A Sprain of unspecified ligament of left ankle, initial encounter (principal); M25.373 Other instability, unspecified ankle; M67.472 Ganglion, left ankle and foot
CPT/HCPCS: 73610

== ENCOUNTER → 2025-01-18 12:05 | Outpatient (BNV) | payer OTHER, SELFPAY | PROVIDERS: Visit Provider Radiology Diagnostic Radiology | DX: S93.402A Sprain of unspecified ligament of left ankle, initial encounter (principal) | CPT/HCPCS: 73610 ==

== ENCOUNTER 2025-02-15 13:38 | Outpatient (AMB) | payer OTHER, SELFPAY ==
--- OUTSIDE RECORDS SUMMARY | 2013-01-05 21:00 | XMS_ITS | Continuity of Care Document ---
Author Organization [facility] Address [address] [place] [address] Phone Care Team Providers Care Avp Name Role Phone Bindu Bueno CRNA Unavailable Unavailable Procedures Procedure Date ANESTH, SPINE, CORD SURGERY Advance Directives Directive Yes / No Effective Date File Name No Information Encounters Encounter Description Practice Location Reason(s) For Visit Diagnoses Date Provider Providers Copied on Encounter [facility], [address], [place], [place], [id number], [place] tel:[phone] [facility] No Information 3 Myles Ruano. [address], [place], [place], [id number] , [place]. Family History Family Member Type Diagnosis Age At Onset No Information Payers Payer name Insurance type Covered constitution party ID Authoriza tion(s) Auto [facility] [id number] Social History Type Description Quantity Date Captured [...]
[2025-02-15 13:42] VITALS: BMI 33.7
--- NOTE | 2025-02-15 13:42 | MHC.OFFVIS ---
Vital Signs 02/15/25 13:42 Height 5 ft 7 in Weight 215 lb BMI 33.7 Intake Visit Reasons: fu left ankle pain & xrays Intake Note: Cuong is a 44 year old male who presents today for a follow up on his left ankle pain and X-ray results. Pt reports since his last visit he has not seny improvement and is currently still experiencing pain in his ankle. Printing Table Worker Required: Yes Printing Table Worker Services: Printing Table Worker Present Printing Table Worker Name: [id number] Allergies aspirin Allergy (Verified 02/15/25 13:48) swollen eyes Medication List - Last Reconciled 02/15/25 by Maura Adkins DPM acetaminophen 1,000 mg PO Q6H PRN albuterol sulfate 90 mcg/actuation (Ventolin HFA) inhalation ibuprofen 600 mg PO Q6H omeprazole 20 mg PO DAILY quetiapine 25 mg PO BEDTIME HPI Comments Details: The patient is a 44-year-old male presenting for follow-up of chronic left ankle instability and pain. Patient was seen without the lace-up brace today. The patient reports that the ankle pain is persistent, particularly noticeable upon waking in the morning, and feels as though the bone is going to break down. The patient has been using a brace intermittently, which provides minimal relief. The patient has been taking ibuprofen as needed for pain with mild relief. He denies any new injuries. He denies any new pedal concerns. [facility] Medical History (Updated 02/16/25 @ 14:36 by Maura Adkins DPM) Impingement syndrome of left ankle Left ankle swelling Left ankle pain Ganglion, left ankle and foot Chronic instability of ankle Left ankle sprain Review of Systems Const Details: - Musculoskeletal: Reports persistent left ankle pain, exacerbated by movement and weight-bearing activities. All systems reviewed & are unremarkable except as noted in HPI and below Physical Exam Vital Signs: BMI result Body Mass Index 33.7 Extrem Other: LLE Focused Physical Exam: Derm: Mild edema noted to the left ankle diffusely, but worsened to the lateral aspect of the ankle. Scabbing noted diffusely. No open lesions abrasions or wounds noted. No clinical signs of infection noted. Skin supple and turgor WNL. No ecchymosis or erythema noted. Soft tissue mass noted to the anterior aspect of the lateral gutter of the ankle. Vasc: DP/PT pulses palpable. CFT < 3 secs. TG: warm to warm. Pedal hair present. Pedal hair diminished. No varicosities noted. Neuro: Protective sensations grossly intact, but reports a vibration sensation that radiates from the foot to the tibial tuberosity of the LLE. MSK: Pain on palpation to the left ankle along the lateral gutter, the lateral malleolus, and lateral ankle ligaments. Palpable mass noted to the lateral gutter of the ankle, no change in size noted. ROM of the ankle decreased, with difficulty dorsiflexing, plantar flexion, and eversion due to guarding from pain. No crepitus noted. ROM of the forefoot WNL. Antalgic gait noted unassisted. MMT 4/5. Office Procedures AMB Joint Injection/Aspir Pod Joint Injection/Aspiration Podiatry: Procedure: Left ankle cortisone injection: Cleansed the left ankle with an alcohol swab in the area of the lateral gutter at the most painful location previously marked. Next injected 1 cc of lidocaine plain, 1 cc of dexamethasone, and 1 cc of triamcinolone in the area of the previously marked area with no incidents. A band-aid was applied to the area. Provided patient with after care instructions. LT - Injection of intermediate joint LT Procedure code (CPT) selection complete Office Meds triamcinolone acetonide 40 mg/mL suspension for injection Performing Provider: Maura Adkins DPM Performing Location: [facility] Administered by: Maura Adkins DPM on 02/16/25 14:26 Dose Route Admin Location Dispensed Lot Number Expiration Date [facility] [employer] 20 mg intra-articular 1 mL [id number] [employer] Total Dispensed Waste 1 mL 50 % dexamethasone sodium phosphate 4 mg/mL injection solution Performing Provider: Maura Adkins DPM Performing Location: [facility] Administered by: Maura Adkins DPM on 02/16/25 14:26 Dose Route Admin Location Dispensed Lot Number Expiration Date [facility] [employer] 4 mg intra-articular 1 mL [id number] [employer] Total Dispensed Waste 1 mL 0 % lidocaine HCl 10 mg/mL (1 %) injection solution Performing Provider: Maura Adkins DPM Performing Location: [facility] Administered by: Maura Adkins DPM on 02/16/25 14:26 Dose Route Admin Location Dispensed Lot Number Expiration Date [facility] [employer] Operator 1 mL intra-articular 1 mL [id number] [employer] Total Dispensed Waste 1 mL 0 % Results Reviewed Results Reviewed: Podiatry Read of Left ankle xray (01/18/25): Healed fracture noted to the distal tip of the medial malleolus. Arthritic changes noted to the ankle joint with osteophytic changes and demineralization noted. [place] noted to the anterior aspect of the ankle consistent with anterior ankle impingement. Os trigonum noted. No acute fractures or dislocations ntoed. Left ankle xray (01/18/25): FINDINGS: Ankle mortise is congruent. There is no widening of the syndesmosis. Talar dome is intact. There is a bony spur or exostosis or ossification dorsal to the junction of the talar neck and down, just anterior to the ankle joint. There is a posterior process of talus. There are no calcaneal enthesophyte(s). IMPRESSION: Possible anterior ankle impingement. Correlate for signs symptoms. There is a bony prominence anterior the ankle joint and dorsal to the junction of the talar neck and dome. There is a posterior process of talus with degenerative changes. Correlate for posterior ankle pain. Assessment & Plan Assessment & Plan (1) Left ankle sprain: Code(s): S93.402A - Sprain of unspecified ligament of left ankle, initial encounter Category: Medical Qualifiers: Encounter type: initial encounter Involved ligament of ankle: unspecified ligament Qualified Code(s): S93.402A - Sprain of unspecified ligament of left ankle, initial encounter (2) Chronic instability of ankle: Code(s): M25.373 - Other instability, unspecified ankle Category: Medical (3) Ganglion, left ankle and foot: Code(s): M67.472 - Ganglion, left ankle and foot Category: Medical (4) Left ankle pain: Code(s): M25.572 - Pain in left ankle and joints of left foot Category: Medical Qualifiers: Chronicity: chronic Qualified Code(s): M25.572 - Pain in left ankle and joints of left foot; G89.29 - Other chronic pain (5) Left ankle swelling: Code(s): M25.472 - Effusion, left ankle Category: Medical (6) Impingement syndrome of left ankle: Code(s): M25.872 - Other specified joint disorders, left ankle and foot Category: Medical Plan Patient was informed and verbally consented to the use of an ambient scribe for clinic note documentation during this visit. I discussed with the patient the findings from the x-ray, which showed no current fractures but a previous fracture and bone overgrowth causing impingement. I explained the potential need for surgery to remove the bone overgrowth and alleviate the impingement if pain is persistent, and the importance of obtaining an MRI to assess the ligaments and confirm the extent of the bone issue. I also discussed the administration of a cortisone injection to help manage pain and swelling, and the potential for physical therapy following any surgical intervention. - Ordered an MRI to assess the condition of the ligaments and confirm the extent of bone overgrowth. - Administered a cortisone injection to the left ankle with no incidents. Provided patient with after care instructions. - Advised patient to use the lace up brace as needed with increased activity, and discussed with patient to avoid tightening of the brace when applying it. - Recommend use of ice to reduce swelling, particularly after activity and continuation of RICE protocol. - Patient may take Tylenol or Ibuprofen prn for pain. - Patient may be WBAT to the LLE. RTC in 3 weeks. Orders: Orders MR foot LT wo/w con 02/15/25 M25.373 - Other instability, unspecified ankle, M25.472 - Effusion, left ankle, M25.572 - Pain in left ankle and joints of left foot, M25.872 - Other specified joint disorders, left ankle and foot, M67.472 - Ganglion, left ankle and foot, S93.402A - Sprain of unspecified ligament of left ankle, initial encounter AMB Joint Injection/Aspiration Podiatry 02/15/25 M25.373 - Other instability, unspecified ankle, M25.472 - Effusion, left ankle, M25.572 - Pain in left ankle and joints of left foot, M25.872 - Other specified joint disorders, left ankle and foot, M67.472 - Ganglion, left ankle and foot, S93.402A - Sprain of unspecified ligament of left ankle, initial encounter Medications: Discontinued methylprednisolone (Medrol (Ja)) Discontinued Reason: Patient Completed Course PO PER PKG DIR 21 ea 0RF Left ankle pain M25.373 - Other instability, unspecified ankle, M67.472 - Ganglion, left ankle and foot, S93.402A - Sprain of unspecified ligament of left ankle, initial encounter Coding Level of Care Code Est Pt Level 4 (24564) Diagnoses Sprain of left ankle, unspecified ligament, initial encounter S93.402A Encounter type: initial encounter Involved ligament of ankle: unspecified ligament Chronic instability of ankle M25.373 Ganglion, left ankle and foot M67.472 Chronic pain of left ankle M25.572; G89.29 Chronicity: chronic Left ankle swelling M25.472 Impingement syndrome of left ankle M25.872 CPT Codes Joint injectio/aspiration Podiatry - Joint Injection POD4: [id number] LT - Injection of intermediate joint LT ([id number]) Time Spent (min) 45 Comment 10 mins for procedure
--- OUTSIDE RECORDS SUMMARY | 2025-02-15 17:17 | XMS_ITS | Clinical Summary ---
Author Organization [address] Address [address] [place] [phone] Phone Care Team Providers Care Clerical Administrator Name Role Phone Baldev Diop Primary Care Provider [phone] Allergies Active Allergy Reactions Criticality Noted Date [...] surgery Anxiety 04/08/2017 Overview (04/19/2024): Follows with [facility] psychiatry External hemorrhoids 02/12/2017 Positive urine drug screen 07/04/2016 Overview (04/19/2024): +ve cocaine Immunizations Immunization Administration Dates Next Due Influenza Quadravalent, MDCK [...] Anxiety 04/08/2017 DX:Anxiety; COMM ENT: Follows with [facility] psychiatry Tobacco use 04/08/2017 DX:Tobacco use Acromioclavicular [...] 3:00 PM EST Office Visit Gastroenterology - [address] [place] [address] Nan Randall NP [address] [place] [phone] Health Maintenance Due Date Last Done Comments Hepatitis B Vaccines (1 of 3 - 19+ 3-dose series) 2000 Pneumococcal Vaccine: Pediatrics (0 to 5 Years) and At-Risk Patients (6 to 49 Years) (1 of 2 - PCV) 2000 HPV Vaccines (1 - 3-dose SCD M series) 2008 Social Influencers of Health Screening 03/25/2022 Depression Screening 04/22/2024 02/13/2024 COVID-19 Vaccine (3 - 2024-2 6 season) 2024 03/22/2021, 03/01/2021 Influenza Vaccine (#1) 2024 , 02/12/2017 DTaP,Tdap,and Td Vaccines (2 - Td or Tdap) 02/12/2027 02/12/2017 Colorectal Cancer Screening: Colonoscopy 07/30/2028 07/31/2023 Cholesterol Screening (Lipid Panel) 10/28/2029 10/28/2024, 07/09/2023 RSV Immunization Adult Patients (1 - 1-dose 75+ series) 2056 HIV Screening Completed 03/17/2018 Hepatitis C Screening [...] Procedure Name Priority Date/Time Associated Diagnosis Comments LIPID PANEL WITH REFLEX TO DIRECT LDL [...] Recently Relevant to Health Maintenance Results * (ABNORMAL) Lipid panel with reflex to direct LDL (10/28/2024 12:05 PM EDT) Cholesterol 181 0 - 200 mg/dL LAB CHEMISTRY METHOD 10/28/2024 3:26 PM EDT [facility] Triglycerides 346(H) 0 - 150 mg/dL LAB CHEMISTRY METHOD 10/28/2024 3:26 PM EDT [facility] HDL 38(L) >=40 mg/dL LAB CHEMISTRY METHOD 10/28/2024 3:26 PM EDT [facility] LDL Calculated 74 0 - 100 mg/dL LAB CHEMISTRY METHOD 10/28/2024 3:26 PM EDT [facility] VLDL Cholesterol Gabino 69.2 mg/dL LAB CHEMISTRY METHOD 10/28/2024 3:26 PM T [facility] Non HDL Chol. (LDL+VLDL) 143 <145 mg/dL LAB CHEMISTRY METHOD 10/28/2024 3:26 PM EDT [facility] Chol/HDL Ratio 4.8(H) 0.0 - 4.4 LAB CHEMISTRY METHOD 10/28/2024 3:26 PM [facility] Blood Venous blood specimen / Unknown Venipuncture / Unknown 10/28/2024 12:05 PM EDT 10/28/2024 12:05 PM EDT us Baldev GUY LAB BLOOD ORDERABLES Gavi aguirre Result [facility] [address] [place] [address], * Depression Screening (02/13/2024) Depression Screening abstracted Historical Provider HEALTH MAINTENANCE Final Result * HIV Screening (03/17/2018) HIV Screening abstracted Historical Provider MD HEALTH MAINTENANCE Final Result * Hepatitis C Screening (03/17/2018) Hepatitis C Screening abstracted Historical Provider HEALTH MAINTENANCE Final Result from Last 3 Months or Most Recently Relevant to Health Maintenance Insurance [facility] [employer] Care Teams Clerical Administrator Relationship Specialty Start Date End Date Baldev Diop PA [address] [place] [id number] PCP - General Internal Medicine 07/29/20
== END 2025-02-15 15:33 | disposition home or self-care (01) ==
LOC: HO.HPODS 13:38
PROVIDERS: PCP Internal Medicine; Visit Provider Student in an Organized Health Care Education/Training Program
DX: S93.402A Sprain of unspecified ligament of left ankle, initial encounter (principal); M25.373 Other instability, unspecified ankle; M67.472 Ganglion, left ankle and foot; M25.572 Pain in left ankle and joints of left foot; G89.29 Other chronic pain; M25.472 Effusion, left ankle; M25.872 Other specified joint disorders, left ankle and foot
CPT/HCPCS: 20605; 99214

== ENCOUNTER → 2025-02-15 13:38 | Outpatient (BNVA) | payer OTHER, SELFPAY | PROVIDERS: PCP Internal Medicine; Visit Provider Student in an Organized Health Care Education/Training Program | DX: S93.402A Sprain of unspecified ligament of left ankle, initial encounter (principal); M67.472 Ganglion, left ankle and foot; M25.572 Pain in left ankle and joints of left foot; G89.29 Other chronic pain; M25.472 Effusion, left ankle; M25.872 Other specified joint disorders, left ankle and foot; M25.373 Other instability, unspecified ankle; X58.XXXA Exposure to other specified factors, initial encounter; Y93.9 Activity, unspecified; Y92.9 Unspecified place or not applicable; Y99.9 Unspecified external cause status | CPT/HCPCS: 20605; J1100; J2003; J3301 ==

== ENCOUNTER 2025-03-09 14:11 | Outpatient (REF) | payer OTHER, SELFPAY ==
--- OUTSIDE RECORDS SUMMARY | 2013-01-05 20:00 | XMS_ITS | Continuity of Care Document ---
Author Organization [facility] Address [address] [place] [address] Phone Care Team Providers Care Hydroelectric Production Technician Name Role Phone Bindu Bueno CRNA Unavailable Unavailable Procedures Procedure Date ANESTH, SPINE, CORD SURGERY Advance Directives Directive Yes / No Effective Date File Name No Information Encounters Encounter Description Practice Location Reason(s) For Visit Diagnoses Date Provider Providers Copied on Encounter [facility], [address], [place], [place], [id number], [place] tel:[phone] [facility] No Information 3 Myles Ruano. [address], [place], [place], [id number] , [place]. Family History Family Member Type Diagnosis Age At Onset No Information Payers Payer name Insurance type Covered alliance party ID Authoriza tion(s) Auto [facility] [id number] Social History Type Description Quantity Date Captured Comments Sex Male Smoking Status No Information Chief Complaint And Reason For Visit No Information Reason For Referral Reason For Referral No Information History Of Present Illness Encounter Date Complaint History Of Prese nt Illness No Information Functional Status Date Functional Assessmen t No Information Instructions Date Instruction Additional Infor mation No Information Assessments Type Assessment Date No Information Patient Care Teams Name Effective Dates (start - stop) Status Members No Information
--- OUTSIDE RECORDS SUMMARY | 2013-01-05 20:00 | XMS_ITS | Continuity of Care Document ---
Author Organization [facility] Address [address] [place] [address] Phone Care Team Providers Care Strike Warfare/Missile Systems Officer Name Role Phone Bindu Bueno CRNA Unavailable Unavailable Procedures Procedure Date ANESTH, SPINE, CORD SURGERY Advance Directives Directive Yes / No Effective Date File Name No Information Encounters Encounter Description Practice Location Reason(s) For Visit Diagnoses Date Provider Providers Copied on Encounter [facility], [address], [place], [place], [id number], [place] tel:[phone] [facility] No Information 3 Myles Ruano. [address], [place], [place], [id number] , [place]. Family History Family Member Type Diagnosis Age At Onset No Information Payers Payer name Insurance type Covered democrat ID Authoriza tion(s) Auto [facility] [id number] Social History Type Description Quantity Date Captured [...]
--- OUTSIDE RECORDS SUMMARY | 2013-01-05 20:00 | XMS_ITS | Continuity of Care Document ---
Author Organization [facility] Address [address] [place] [address] Phone Care Team Providers Care Building Official Name Role Phone Bindu Bueno CRNA Unavailable Unavailable Procedures Procedure Date ANESTH, SPINE, CORD SURGERY Advance Directives Directive Yes / No Effective Date File Name No Information Encounters Encounter Description Practice Location Reason(s) For Visit Diagnoses Date Provider Providers Copied on Encounter [facility], [address], [place], [place], [id number], [place] tel:[phone] [facility] No Information 3 Myles Ruano. [address], [place], [place], [id number] , [place]. Family History Family Member Type Diagnosis Age At Onset No Information Payers Payer name Insurance type Covered democrat ID Authoriza tion(s) Auto [facility] [id number] Social History Type Description Quantity Date Captured [...]
--- OUTSIDE RECORDS SUMMARY | 2013-01-05 20:00 | XMS_ITS | Continuity of Care Document ---
Author Organization [facility] Address [address] [place] [address] Phone Care Team Providers Care Solar Sales Consultant Name Role Phone Bindu Bueno CRNA Unavailable Unavailable Procedures Procedure Date ANESTH, SPINE, CORD SURGERY Advance Directives Directive Yes / No Effective Date File Name No Information Encounters Encounter Description Practice Location Reason(s) For Visit Diagnoses Date Provider Providers Copied on Encounter [facility], [address], [place], [place], [address], [place] tel:[phone] [facility] No Information 3 Myles Ruano. [address], [place], [place], [id number] , [place]. Family History Family Member Type Diagnosis Age At Onset No Information Payers Payer name Insurance type Covered constitution party ID Authoriza tion(s) Auto [facility] [id number] Social History Type Description Quantity Date Captured [...]
--- OUTSIDE RECORDS SUMMARY | 2025-03-10 09:49 | XMS_ITS | Encounter Summary ---
Author Organization [facility] Address [address] [place] [address] Care Team Providers Care Insight Leader Name Role Phone Arturo Bansal MD Primary Care Provider + [phone] Baldev Diop PA-C Primary Care Provider [phone] Encounter Details Date Type Department Care Team Description 11/17/2019 Home Health Certification Medical Records [address] [place] [id number] Support [facility] Social History Tobacco Use Types Packs/Day Years Used Date Smoking Tobacco: Every Day Cigarettes 1 24 Smokeless Tobacco: Current Alcohol Use Standard Drinks/Week Comments No 0 (1 standard drink = 0.6 oz pur e alcohol) Sex Assigned at Date Recorded Not on file Job Start Date Occupation Industry Not on file Not on file Not on file documented as of this encounter Plan of Treatment Not on file documented as of this encounter Visit Diagnoses Not on filedocumented in this encounter Care Teams Insight Leader Relationship Specialty Start Date End Date Arturo Bansal MD [address] [place] [phone] PCP - General Internal Medicine 07/14/19 07/28/20 Baldev Diop PA-C [address] [place] [address] [phone] PCP - General Internal Medicine 07/29/20 documented as of this encounter
--- OUTSIDE RECORDS SUMMARY | 2025-03-10 09:49 | XMS_ITS | Encounter Summary ---
Author Organization [facility] Address [address] [place] [address] Care Team Providers Care Net Technical Architect Name Role Phone Atruro Bansal MD Primary Care Provider + [phone] Baldev Diop PA-C Primary Care Provider [phone] Reason for Visit * Reason Onset Date Comments Faxed Order 12/14/2019 Encounter Details Date Type Department Care Team Description 12/14/2019 Telephone Adult Medicine [address] [address] Arturo Bansal MD [address] [place] [address] [phone] Faxed Order Social History Tobacco Use Types Packs/Day Years Used Date Smoking Tobacco: Every Day Cigarettes 1 24 Smokeless Tobacco: Current Alcohol Use Standard Drinks/Week Comments No 0 (1 standard drink = 0.6 oz pur e alcohol) Sex Assigned at Date Recorded Not on file Job Start Date Occupation Industry Not on file Not on file Not on file documented as of this encounter Miscellaneous Notes * Telephone Encounter - Derek Bee - 12/14/2019 9:00 AM EDT Orders to be signed and faxed documented in this encounter Plan of Treatment Not on file documented as of this encounter Visit Diagnoses Not on filedocumented in this encounter Care Teams Net Technical Architect Relationship Specialty Start Date End Date Arturo Bansal MD [address] [place] [address] [phone] PCP - General Internal Medicine 07/14/19 07/28/20 Baldev Diop PA-C [address] [place] [phone] PCP - General Internal Medicine 07/29/20 documented as of this encounter
--- OUTSIDE RECORDS SUMMARY | 2025-03-10 09:50 | XMS_ITS | Encounter Summary ---
Author Organization [facility] Address [address] [place] [address] Care Team Providers Care Public Area Supervisor Name Role Phone Arturo Bansal MD Primary Care Provider + [phone] Baldev Diop PA-C Primary Care Provider [phone] Reason for Visit * Reason Onset Date Comments Faxed Order 04/10/2020 Encounter Details Date Type Department Care Team Description 04/10/2020 Telephone Adult Medicine [address] [address] Arturo Bansal MD [address] [place] [phone] Faxed Order Social History Tobacco Use Types [...] encounter Miscellaneous Notes * Telephone Encounter - Marisel Cast - 04/10/2020 3:18 PM EST [facility] IS FAXING ORDERS TO BE SIGN AND FAX BACK TO [phone]. documented in this encounter Plan of Treatment Not on file documented as of this encounter Visit Diagnoses Not on filedocumented in this encounter Care Teams Public Area Supervisor Relationship Specialty Start Date End Date Arturo Bansal MD [address] [place] [address] PCP - General Internal Medicine 07/14/19 07/28/20 Baldev Diop PA-C [address] [place] [phone] PCP - General Internal Medicine 07/29/20 documented as of this encounter
--- OUTSIDE RECORDS SUMMARY | 2025-03-10 09:50 | XMS_ITS | Clinical Summary ---
Author Organization [address] Address [address] [place] [phone] Phone Care Team Providers Care Channel Lip Stiffener Insoles Name Role Phone Baldev Diop Primary Care Provider [phone] Allergies Active Allergy Reactions Criticality Noted Date [...] surgery Anxiety 04/08/2017 Overview (04/19/2024): [facility]s with [facility] External hemorrhoids 02/12/2017 Positive urine drug screen 07/04/2016 Overview (04/19/2024): +ve cocaine Encounters Date Type Department Care Team Description 02/18/2025 1:00 PM EDT Ancillary Procedure Pulmonology - [address] [place] [address] from Last 3 Months Immunizations Immunization Administration Dates Next Due Influenza [...] Anxiety 04/08/2017 DX:Anxiety; COMM ENT: Follows with [facility] psychiatry Tobacco use 04/08/2017 DX:Tobacco use [...] Office Visit Gastroenterology - [address] [facility] [address] [place] [address] Nan Randall, TASHA [address] [facility] [address] [place] [address] Health Maintenance Due Date Last Done Comments [...] mg/dL LAB CHEMISTRY METHOD 10/28/2024 3:26 PM [facility] Triglycerides 346(H) 0 - 150 mg/dL LAB CHEMISTRY METHOD 10/28/2024 3:26 PM [facility] HDL 38(L) >=40 mg/dL LAB CHEMISTRY METHOD 10/28/2024 3:26 PM [facility] LDL Calculated 74 0 - 100 mg/dL LAB CHEMISTRY METHOD 10/28/2024 3:26 PM [facility] VLDL Cholesterol Gabino 69.2 mg/dL LAB CHEMISTRY METHOD 10/28/2024 3:26 PM [facility] Non HDL Chol. (LDL+VLDL) 143 <145 mg/dL LAB CHEMISTRY METHOD 10/28/2024 3:26 PM [facility] Chol/HDL Ratio 4.8(H) 0.0 - 4.4 LAB CHEMISTRY METHOD 10/28/2024 3:26 PM [facility] Blood Venous blood specimen / Unknown Venipuncture / Unknown 10/28/2024 12:05 PM EDT 10/28/2024 12:05 PM EDT Baldev GUY LAB BLOOD ORDERABLES Gavi l Result [facility] ([facility] [address] [place] [address], [place] [phone] * Depression Screening (02/13/2024) Depression Screening abstracted Historical Provider MD HEALTH MAINTENANCE Final Result * HIV Screening (03/17/2018) HIV Screening abstracted Historical Provider HEALTH MAINTENANCE Final Result * Hepatitis C Screening (03/17/2018) Hepatitis C Screening abstracted Historical Provider HEALTH MAINTENANCE Final Result from Last 3 Months or Most Recently Relevant to Health Maintenance Insurance [facility] [employer] Care Teams Channel Lip Stiffener Insoles Relationship Specialty Start Date End Date Baldev Diop PA [address] [place] [phone] PCP - General Internal Medicine 07/29/20
--- OUTSIDE RECORDS SUMMARY | 2025-03-10 09:51 | XMS_ITS | Encounter Summary ---
Author Organization [facility] Address [address] [place] [address] Care Team Providers Care Polisher Dial Name Role Phone Arturo Bansal MD Primary Care Provider + [phone] Baldev Diop PA-C Primary Care Provider + [phone] Reason for Visit * Reason Onset Date Comments Faxed Order 04/21/2020 Encounter Details Date Type Department Care Team Description 04/21/2020 Telephone Adult Medicine [address] [address] Arturo Bansal MD [address] [place] [phone] Faxed Order Social History Tobacco Use Types [...] * Telephone Encounter - Marisel Cast - 04/21/2020 2:05 PM EST [facility] IS FAXING ORDERS TO BE SIGN AND FAX BACK TO [phone]. documented in this encounter Plan of Treatment Not on file documented as of this encounter Visit Diagnoses Not on filedocumented in this encounter Care Teams Polisher Dial Relationship Specialty Start Date End Date Arturo Bansal MD [address] [place] [address] PCP - General Internal Medicine 07/14/19 07/28/20 Baldev Diop PA-C [address] [place] [phone] PCP - General Internal Medicine 07/29/20 documented as of this encounter
--- OUTSIDE RECORDS SUMMARY | 2025-03-10 09:51 | XMS_ITS | Encounter Summary ---
Author Organization [facility] Address [address] [place] [address] Care Team Providers Care Production Illustrator Name Role Phone Arturo Bansal MD Primary Care Provider + [phone] Baldev Diop PA-C Primary Care Provider [phone] Reason for Visit * Reason Onset Date Comments Faxed Order 04/19/2020 Encounter Details Date Type Department Care Team Description 04/19/2020 Telephone Adult Medicine [address] [address] Arturo Bansal MD [address] [place] [phone] Faxed Order Social History Tobacco Use Types [...] * Telephone Encounter - Marisel Cast - 04/19/2020 3:56 PM EST [facility] IS FAXING ORDERS TO BE SIGN AND FAX BACK TO [phone]. documented in this encounter Plan of Treatment Not on file documented as of this encounter Visit Diagnoses Not on filedocumented in this encounter Care Teams Production Illustrator Relationship Specialty Start Date End Date Arturo Bansal MD [address] [place] [address] PCP - General Internal Medicine 07/14/19 07/28/20 Baldev Diop PA-C [address] [place] [phone] PCP - General Internal Medicine 07/29/20 documented as of this encounter
--- OUTSIDE RECORDS SUMMARY | 2025-03-10 09:52 | XMS_ITS | Encounter Summary ---
Author Organization [facility] Address [address] [place] [address] Care Team Providers Care Home Inspector Name Role Phone Anuja Nunes MD Primary Care Provider Unavail able Sammy Valverde MD Primary Care Provider Un available Tej Yoon MD Primary Care Provider [phone] Arturo Bansal MD Primary Care Provider + [phone] Baldev Diop PA-C Primary Care Provider +[phone] Encounter Details Date Type Department Care Team Description 05/24/2017 Release of Information Medical Records [address] [place] [address]751 Abstract, Provider Social History Tobacco Use Types Packs/Day Years [...] on filedocumented in this encounter Care Teams Home Inspector Relationship Specialty Start Date End Date Anuja Nunes MD PCP - General Internal Medicine 05/22/16 01/29/18 Sammy Valverde MD PCP - General Internal Medicine 01/30/1802/09 Tej Yoon MD [address] [place] [address] PCP - General Internal Medicine 02/10/19 07/13/19 Arturo Bansal MD [address] [place] [address] [phone] PCP - General Internal Medicine 07/14/19 07/28/20 Baldev Diop PA-C [address] [place] [address] 14898 PCP - General Internal Medicine 07/29/20 documented as of this encounter
--- OUTSIDE RECORDS SUMMARY | 2025-03-10 09:52 | XMS_ITS | Encounter Summary ---
Author Organization [facility] Address [address] [place] [address] Care Team Providers Care Critical Care Specialist Name Role Phone Anuja Nunes MD Primary Care Provider Unavail able Sammy Valverde MD Primary Care Provider Un available Tej Yoon MD Primary Care Provider [phone] Arturo Bansal MD Primary Care Provider + [phone] Baldev Diop PA-C Primary Care Provider + [phone] Encounter Details Date Type Department Care Team Description 04/24/2017 Grinding Mill Operator Report Medical Records [address] [place] [address] Jaime Reynoso PA-C [address] [place] [address] [phone] Social History Tobacco Use Types Packs/Day Years [...] on filedocumented in this encounter Care Teams Critical Care Specialist Relationship Specialty Start Date End Date Anuja Nunes MD PCP - General Internal Medicine 05/22/16 01/29/18 Sammy Valverde MD PCP - General Internal Medicine 01/30/1802/09 Tej Yoon MD [address] [place] [address] [phone] PCP - General Internal Medicine 02/10/19 07/13/19 Arturo Bansal MD [address] [place] [address] PCP - General Internal Medicine 07/14/19 07/28/20 Baldev Diop PA-C [address] [place] [address] 10[address] PCP - General Internal Medicine 07/29/20 documented as of this encounter
--- OUTSIDE RECORDS SUMMARY | 2025-03-10 09:52 | XMS_ITS | Encounter Summary ---
Author Organization [facility] Address [address] [place] [address] Care Team Providers Care Lifeline Representatives Name Role Phone Anuja Nunes MD Primary Care Provider Unavail able Sammy Valverde MD Primary Care Provider Un available Tej Yoon MD Primary Care Provider [phone] Arturo Bansal MD Primary Care Provider + [phone] Baldev Diop PA-C Primary Care Provider + [phone] Encounter Details Date Type Department Care Team Description 06/13/2017 Wall Covering Contractor Report Medical Records [address] [place] [address] 90034 Elvin Varma MD Social History Tobacco Use Types Packs/Day Years [...] on filedocumented in this encounter Care Teams Lifeline Representatives Relationship Specialty Start Date End Date Anuja Nunes MD PCP - General Internal Medicine 05/22/16 01/29/18 Sammy Valverde MD PCP - General Internal Medicine 01/30/1802/09 Tej Yoon MD [address] [place] [address] PCP - General Internal Medicine 02/10/19 07/13/19 Arturo Bansal MD [address] [place] [address] PCP - General Internal Medicine 07/14/19 07/28/20 Baldev Diop PA-C [address] [place] [address] PCP - General Internal Medicine 07/29/20 documented as of this encounter
--- OUTSIDE RECORDS SUMMARY | 2025-03-10 09:53 | XMS_ITS | Encounter Summary ---
Author Organization [facility] Address [address] [place] [address] Care Team Providers Care Relief Worker Name Role Phone Anuja Nunes MD Primary Care Provider Unavail able Sammy Valverde MD Primary Care Provider Un available Tej Yoon MD Primary Care Provider [phone] Arturo Bansal MD Primary Care Provider + [phone] Baldev Diop PA-C Primary Care Provider + [phone] Encounter Details Date Type Department Care Team Description 06/05/2017 Three Dimensional Map Modeler Report Medical Records [address] [place] [address] Jaime Reynoso PA-C [address] [place] [address] [phone] Social History Tobacco Use Types Packs/Day Years [...] on filedocumented in this encounter Care Teams Relief Worker Relationship Specialty Start Date End Date Anuja Nunes MD PCP - General Internal Medicine 05/22/16 01/29/18 Sammy Valverde MD PCP - General Internal Medicine 01/30/1802/09 Tej Yoon MD [address] [place] [address] [phone] PCP - General Internal Medicine 02/10/19 07/13/19 Arturo Bansal MD [address] [place] [address] PCP - General Internal Medicine 07/14/19 07/28/20 Baldev Diop PA-C [address] [place] [address] PCP - General Internal Medicine 07/29/20 documented as of this encounter
--- OUTSIDE RECORDS SUMMARY | 2025-03-10 09:54 | XMS_ITS | Encounter Summary ---
Author Organization [facility] Address [address] [place] [address] Care Team Providers Care House Sitter Name Role Phone Arturo Bansal MD Primary Care Provider + [phone] Baldev Diop PA-C Primary Care Provider + [phone] Reason for Visit * Reason Onset Date Comments Faxed Order 06/21/2020 Encounter Details Date Type Department Care Team Description 06/21/2020 Telephone Adult Medicine [address] [phone] Arturo Bansal MD [address] [place] [address] [phone] Faxed Order Social History Tobacco Use Types [...] encounter Miscellaneous Notes * Telephone Encounter - Cha Pérez - 06/21/2020 12:52 PM EST Orders from [facility] to be signed and faxed back to [phone] . documented in this encounter Plan of Treatment Not on file documented as of this encounter Visit Diagnoses Not on filedocumented in this encounter Care Teams House Sitter Relationship Specialty Start Date End Date Arturo Bansal MD [address] [place] [address] PCP - General Internal Medicine 07/14/19 07/28/20 Baldev Diop PA-C [address] [place] [address] PCP - General Internal Medicine 07/29/20 documented as of this encounter
--- OUTSIDE RECORDS SUMMARY | 2025-03-10 09:54 | XMS_ITS | Encounter Summary ---
Author Organization [facility] Address [address] [place] [address] Care Team Providers Care Agile Developer Name Role Phone Arturo Bansal MD Primary Care Provider + [phone] Baldev Diop PA-C Primary Care Provider +[phone] Encounter Details Date Type Department Care Team Description 06/16/2020 Telephone Adult Medicine [address] [phone] Arturo Bansal MD [address] [place] [address] [phone] Social History Tobacco Use Types Packs/Day Years [...] * Telephone Encounter - Cha Pérez - 06/16/2020 1:25 PM EST [facility] be signed and faxed back to [phone] . documented in this encounter Plan of Treatment Not on file documented as of this encounter Visit Diagnoses Not on filedocumented in this encounter Care Teams Agile Developer Relationship Specialty Start Date End Date Arturo Bansal MD [address] [place] [address] [phone] PCP - General Internal Medicine 07/14/19 07/28/20 Baldev Diop PA-C [address] [place] [address] PCP - General Internal Medicine 07/29/20 documented as of this encounter
--- OUTSIDE RECORDS SUMMARY | 2025-03-10 09:54 | XMS_ITS | Encounter Summary ---
Author Organization [facility] Address [address] [place] [address] Care Team Providers Care Location Worker Name Role Phone Baldev Diop PA-C Primary Care Provider [phone] Reason for Visit * Reason Onset Date Comments Faxed Order 08/30/2020 Encounter Details Date Type Department Care Team Description 08/30/2020 Telephone Adult Medicine [address] [address] Baldev Diop PA-C [address] [place] [address] 53247 Faxed Order Social History Tobacco Use Types [...] encounter Miscellaneous Notes * Telephone Encounter - Mari Madsen - 08/30/2020 10:50 AM EDT Fax orders from [facility], please sign and fax back. documented in this encounter Plan of Treatment Not on file documented as of this encounter Visit Diagnoses Not on filedocumented in this encounter Care Teams Location Worker Relationship Specialty Start Date End Date Baldev Diop PA-C [address] [place] [address] [phone] PCP - General Internal Medicine 07/29/20 documented as of this encounter
--- OUTSIDE RECORDS SUMMARY | 2025-03-10 09:55 | XMS_ITS | Encounter Summary ---
Author Organization [facility] Address [address] [place] [address] Care Team Providers Care Automated Access Systems Technician Name Role Phone Anuja Nunes MD Primary Care Provider Unavail able Sammy Valverde MD Primary Care Provider Un available Tej Yoon MD Primary Care Provider [phone] Arturo Bansal MD Primary Care Provider + [phone] Baldev Diop PA-C Primary Care Provider +[phone] Encounter Details Date Type Department Care Team Description 01/17/2018 Release of Information Medical Records [address] [place] [address] Abstract, Provider Social History Tobacco Use Types [...] on filedocumented in this encounter Care Teams Automated Access Systems Technician Relationship Specialty Start Date End Date Anuja Nunes MD PCP - General Internal Medicine 05/22/16 01/29/18 Sammy Valverde MD PCP - General Internal Medicine 01/30/1802/09 Tej Yoon MD [address] [place] [address] PCP - General Internal Medicine 02/10/19 07/13/19 Arturo Bansal MD [address] [place] [address] [phone] PCP - General Internal Medicine 07/14/19 07/28/20 Baldev Diop PA-C [address] [place] [address] PCP - General Internal Medicine 07/29/20 documented as of this encounter
--- OUTSIDE RECORDS SUMMARY | 2025-03-10 09:55 | XMS_ITS | Encounter Summary ---
Author Organization [facility] Address [address] [place] [address] Care Team Providers Care Commercial Pest Control Representative Name Role Phone Baldev Diop PA-C Primary Care Provider [phone] Reason for Visit * Reason Onset Date Comments Faxed Order 11/02/2020 Encounter Details Date Type Department Care Team Description 11/02/2020 Telephone Adult Medicine [address] [phone] Baldev Diop PA-C [address] [place] [address] [phone] Faxed Order Social History Tobacco Use Types [...] * Telephone Encounter - Mari Madsen - 11/03/2020 11:30 AM EDT Fax orders from [facility], please sign and fax back. * Telephone Encounter - Marisel Cast - 11/02/2020 12:10 PM EDT [facility] IS FAXING ORDERS TO BE SIGN AND FAX BACK TO [phone]. documented in this encounter Plan of Treatment Not on file documented as of this encounter Visit Diagnoses Not on filedocumented in this encounter Care Teams Commercial Pest Control Representative Relationship Specialty Start Date End Date Baldev Diop PA-C [address] [place] [address] PCP - General Internal Medicine 07/29/20 documented as of this encounter
--- OUTSIDE RECORDS SUMMARY | 2025-03-10 09:55 | XMS_ITS | Encounter Summary ---
Author Organization [facility] Address [address] [place] [address] Care Team Providers Care Middle School Librarian Name Role Phone Arturo Bansal MD Primary Care Provider + [phone] Baldev Diop PA-C Primary Care Provider + [phone] Encounter Details Date Type Department Care Team Description 06/29/2020 Home Health Certification Medical Records [address] [place] [address] [employer] [facility] Social History Tobacco Use Types Packs/Day Years [...] on filedocumented in this encounter Care Teams Middle School Librarian Relationship Specialty Start Date End Date Arturo Bansal MD [address] [place] [address] 53629 PCP - General Internal Medicine 07/14/19 07/28/20 Baldev Diop PA-C [address] [place] [address] [phone] PCP - General Internal Medicine 07/29/20 documented as of this encounter
--- OUTSIDE RECORDS SUMMARY | 2025-03-10 09:56 | XMS_ITS | Encounter Summary ---
Author Organization [facility] Address [address] [place] [address] Care Team Providers Care Medication Aide Name Role Phone Baldev Diop PA-C Primary Care Provider [phone] Reason for Visit * Reason Onset Date Comments Faxed Order 01/03/2021 12/07/20 12/12/20 Encounter Details Date Type Department Care Team Description 01/03/2021 Telephone Adult Medicine [address] [address] Baldev Diop PA-C [address] [place] [address] Faxed Order (12/07/20 12/12/20) Social History Tobacco Use Types Packs/Day Years [...] encounter Miscellaneous Notes * Telephone Encounter - Jemma Keller - 01/03/2021 10:50 AM EDT 12/12/20 * Telephone Encounter - Jemma Keller - 01/03/2021 10:39 AM EDT Faxed order from [facility] 12/07/20 documented in this encounter Plan of Treatment Not on file documented as of this encounter Visit Diagnoses Not on filedocumented in this encounter Care Teams Medication Aide Relationship Specialty Start Date End Date Baldev Diop PA-C [address] [place] [address] PCP - General Internal Medicine 07/29/20 documented as of this encounter
--- OUTSIDE RECORDS SUMMARY | 2025-03-10 09:56 | XMS_ITS | Encounter Summary ---
Author Organization [facility] Address [address] [place] [address] Care Team Providers Care Assistant Corporation Counsel Name Role Phone Baldev Diop PA-C Primary Care Provider [phone] Encounter Details Date Type Department Care Team Description 11/29/2020 Home Health Certification Medical Records [address] [place] [address] [facility] Social History Tobacco Use Types Packs/Day Years [...] on filedocumented in this encounter Care Teams Assistant Corporation Counsel Relationship Specialty Start Date End Date Baldev Diop PA-C [address] [place], [place] [phone] PCP - General Internal Medicine 07/29/20 documented as of this encounter
--- OUTSIDE RECORDS SUMMARY | 2025-03-10 09:56 | XMS_ITS | Encounter Summary ---
Author Organization [facility] Address [address] [place] [address] Care Team Providers Care Power Plant Operator Apprentice Name Role Phone Baldev Diop PA-C Primary Care Provider [phone] Reason for Visit * Reason Onset Date Comments Faxed Order 11/16/2020 Encounter Details Date Type Department Care Team Description 11/16/2020 Telephone Adult Medicine [address] [phone] Baldev Diop PA-C [address] [place] [address] [phone] Faxed Order Social History Tobacco Use Types [...] * Telephone Encounter - Marisel Cast - 11/16/2020 8:26 AM EDT [facility] IS FAXING ORDERS TO BE SIGN AND FAX BACK TO [phone]. documented in this encounter Plan of Treatment Not on file documented as of this encounter Visit Diagnoses Not on filedocumented in this encounter Care Teams Power Plant Operator Apprentice Relationship Specialty Start Date End Date Baldev Diop PA-C [address] [place] [address] 61971 PCP - General Internal Medicine 07/29/20 documented as of this encounter
--- OUTSIDE RECORDS SUMMARY | 2025-03-10 09:57 | XMS_ITS | Encounter Summary ---
Author Organization [facility] Address [address] [place] [address] Care Team Providers Care Wireless Sales Manager Name Role Phone Baldev Diop PA-C Primary Care Provider [phone] Reason for Visit * Reason Onset Date Comments Faxed Order 02/10/2021 Encounter Details Date Type Department Care Team Description 02/10/2021 Telephone Adult Medicine [address] [address] Baldev Diop PA-C [address] [place] [address] Faxed Order Social History Tobacco Use Types [...] encounter Miscellaneous Notes * Telephone Encounter - Lin Bryant - 02/10/2021 7:54 AM EDT Orders from [facility], please sign and fax back. documented in this encounter Plan of Treatment Not on file documented as of this encounter Visit Diagnoses Not on filedocumented in this encounter Care Teams Wireless Sales Manager Relationship Specialty Start Date End Date Baldev Diop PA-C [address] [place] [address] PCP - General Internal Medicine 07/29/20 documented as of this encounter
--- OUTSIDE RECORDS SUMMARY | 2025-03-10 09:58 | XMS_ITS | Encounter Summary ---
Author Organization [facility] Address [address] [place] [address] Care Team Providers Care Internetworking Technician Name Role Phone Sammy Valverde MD Primary Care Provider Un available Tej Yoon MD Primary Care Provider [phone] Arturo Bansal MD Primary Care Provider + [phone] Baldev Diop PA-C Primary Care Provider +[phone] Encounter Details Date Type Department Care Team Description 03/27/2018 Telephone Gastroenterology - [place] [address] [facility] [address] [place] [address] Vic Bowie MD Social History Tobacco Use Types Packs/Day [...] encounter Miscellaneous Notes * Telephone Encounter - Bruna Mccann M.A. - 03/31/2018 11:31 AM EST Called PT and left msg, unable to give PT a month supplies for pain meds, PT is to follow skin careinst. Given to PT at the time of office appt. * Telephone Encounter - Bernice Kapadia - 03/28/2018 11:11 AM EST [facility] * Telephone Encounter - Bernice Kapadia - 03/28/2018 11:09 AM EST Patient would like some pain meds, he claims he is in a lot of pain. He would like enough to last until his surgery on 04/29. Please advise * Telephone Encounter - Bruna Mccann M.A. - 03/27/2018 3:57 PM EST What exactly does the pt needs supplies for? What kind of supplies? * Telephone Encounter - José Miguel Cary - 03/27/2018 2:56 PM EST Pt is asking to please give him a supply that would last until the surgery date. Pt thought he's surgery date was 03/29/18(SATURDAY). documented in this encounter Plan of Treatment Not on file documented as of this encounter Visit Diagnoses Not on filedocumented in this encounter Care Teams Internetworking Technician Relationship Specialty Start Date End Date Sammy Valverde MD PCP - General Internal Medicine 01/30/1802/09 Tej Yoon MD [address] [place] [address] PCP - General Internal Medicine 02/10/19 07/13/19 Arturo Bansal MD [address] [place] [address]26 PCP - General Internal Medicine 07/14/19 07/28/20 Baldev Diop PA-C [address] [place] [address] PCP - General Internal Medicine 07/29/20 documented as of this encounter
--- OUTSIDE RECORDS SUMMARY | 2025-03-10 09:58 | XMS_ITS | Encounter Summary ---
Author Organization [facility] Address [address] [place] [address] Care Team Providers Care Fire Supervisor Name Role Phone Sammy Valverde MD Primary Care Provider Un available Tej Yoon MD Primary Care Provider [phone] Arturo Bansal MD Primary Care Provider + [phone] Baldev Diop PA-C Primary Care Provider +[phone] Encounter Details Date Type Department Care Team Description 04/21/2018 Hospital Medical Records [address] [place] [address] Christine Mitchell MD [address] [place] [address] [place] [address] Social History Tobacco Use Types Packs/Day Years Used Date Smoking Tobacco: Every Day Cigarettes 1 24 Smokeless Tobacco: Current Alcohol Use Standard Drinks/Week Comments No 0 (1 standard drink = 0.6 oz pur e alcohol) none Sex Assigned at Date Recorded Not on file Job Start Date Occupation Industry Not on file Not on file Not on file documented as of this encounter Plan of Treatment Not on file documented as of this encounter Visit Diagnoses Not on filedocumented in this encounter Care Teams Fire Supervisor Relationship Specialty Start Date End Date Sammy Valverde MD PCP - General Internal Medicine 01/30/1802/09 Tej Yoon MD [address] [place] [address] [phone] PCP - General Internal Medicine 02/10/19 07/13/19 Arturo Bansal MD [address] [place] [address] [phone] PCP - General Internal Medicine 07/14/19 07/28/20 Baldev Diop PA-C [address] [place] [address] PCP - General Internal Medicine 07/29/20 documented as of this encounter
--- OUTSIDE RECORDS SUMMARY | 2025-03-10 09:58 | XMS_ITS | Encounter Summary ---
Author Organization [facility] Address [address] [place] [address] Care Team Providers Care Screen And Cyclone Repairer Name Role Phone Baldev Diop PA-C Primary Care Provider +[phone] Encounter Details Date Type Department Care Team Description 04/20/2021 Home Health Certification Medical Records [address] [place] [address] [employer] [facility] [employer] [facility], [facility] Social History Tobacco Use Types Packs/Day [...] on filedocumented in this encounter Care Teams Screen And Cyclone Repairer Relationship Specialty Start Date End Date Baldev Diop PA-C [address] [place], [place] [phone] PCP - General Internal Medicine 07/29/20 documented as of this encounter
--- OUTSIDE RECORDS SUMMARY | 2025-03-10 09:59 | XMS_ITS | Encounter Summary ---
Author Organization [facility] Address [address] [place] [address] Care Team Providers Care Over The Road Driver Name Role Phone Baldev Diop PA-C Primary Care Provider [phone] Encounter Details Date Type Department Care Team Description 07/31/2023 Orders Only Medical Records [address] [place] [address] Radha Ragland MD [address] [place], [place] [phone] Social History Tobacco Use Types Packs/Day Years [...] on file documented as of this encounter Procedures Procedure Name Priority Date/Time Associated Diagnosis Comments OUTSIDE COLONOSCOPY Routine 07/31/2023 documented in this encounter Results * OUTSIDE COLONOSCOPY (07/31/2023) Radha Ragland MD RADIOLOGY documented in this encounter Visit Diagnoses Not on filedocumented in this encounter Care Teams Over The Road Driver Relationship Specialty Start Date End Date Baldev Diop PA-C [address] [place] [address] PCP - General Internal Medicine 07/29/20 documented as of this encounter
--- OUTSIDE RECORDS SUMMARY | 2025-03-10 09:59 | XMS_ITS | Encounter Summary ---
Author Organization [facility] Address [address] [place] [address] Care Team Providers Care Guide Travel Name Role Phone Baldev Diop PA-C Primary Care Provider [phone] Encounter Details Date Type Department Care Team Description 11/27/2023 Home Health Certification Medical Records [address] [place] [address] [facility] center[facility] Social History Tobacco Use Types Packs/Day [...] on filedocumented in this encounter Care Teams Guide Travel Relationship Specialty Start Date End Date Baldev Diop PA-C [address] [place], [place] [phone] PCP - General Internal Medicine 07/29/20 documented as of this encounter
--- OUTSIDE RECORDS SUMMARY | 2025-03-10 10:00 | XMS_ITS | Encounter Summary ---
Author Organization [facility] Address [address] [place] [address] Care Team Providers Care Senior Storage Administrator Name Role Phone Arturo Bansal MD Primary Care Provider + [phone] Baldev Diop PA-C Primary Care Provider +[phone] Encounter Details Date Type Department Care Team Description 08/11/2019 Home Health Certification Medical Records [address] [place] [address] [employer] [facility] Social History Tobacco Use Types [...] on filedocumented in this encounter Care Teams Senior Storage Administrator Relationship Specialty Start Date End Date Arturo Bansal MD [address] [place] [address] PCP - General Internal Medicine 07/14/19 07/28/20 Baldev Diop PA-C [address] [place] [address] [phone] PCP - General Internal Medicine 07/29/20 documented as of this encounter
--- OUTSIDE RECORDS SUMMARY | 2025-03-10 10:00 | XMS_ITS | Encounter Summary ---
Author Organization [facility] Address [address] [place] [address] Care Team Providers Care Car Jockey Name Role Phone Arturo Bansal MD Primary Care Provider + [phone] Baldev Diop PA-C Primary Care Provider + -[phone] Reason for Visit * Reason Onset Date Comments Faxed Order 11/07/2019 Encounter Details Date Type Department Care Team Description 11/07/2019 Telephone Adult Urgent Care - [address] [address] Arturo Bansal MD [address] [place] [address] Faxed Order Social History Tobacco Use Types [...] encounter Miscellaneous Notes * Telephone Encounter - Bi Watters - 11/07/2019 3:19 PM EDT Received faxed order from [facility]. Please complete and send back to [phone] documented in this encounter Plan of Treatment Not on file documented as of this encounter Visit Diagnoses Not on filedocumented in this encounter Care Teams Car Jockey Relationship Specialty Start Date End Date Arturo Bansal MD [address] [place] [address] PCP - General Internal Medicine 07/14/19 07/28/20 Baldev Diop PA-C [address] [place] [address] PCP - General Internal Medicine 07/29/20 documented as of this encounter
--- OUTSIDE RECORDS SUMMARY | 2025-03-10 10:00 | XMS_ITS | Encounter Summary ---
Author Organization [facility] Address [address] [place] [address] Care Team Providers Care Piano Accompanist Name Role Phone Arturo Bansal MD Primary Care Provider + [phone] Baldev Diop PA-C Primary Care Provider +[phone] Encounter Details Date Type Department Care Team Description 09/25/2019 Home Health Certification Medical Records [address] [place] [address] [facility] Social History Tobacco Use Types [...] on filedocumented in this encounter Care Teams Piano Accompanist Relationship Specialty Start Date End Date Arturo Bansal MD [address] [place] [address] PCP - General Internal Medicine 07/14/19 07/28/20 Baldev Diop PA-C [address] [place] [address] [phone] PCP - General Internal Medicine 07/29/20 documented as of this encounter
--- OUTSIDE RECORDS SUMMARY | 2025-03-10 10:01 | XMS_ITS | Encounter Summary ---
Author Organization [facility] Address [address] [place] [address] Care Team Providers Care Director Sales Support Name Role Phone Arturo Bansal MD Primary Care Provider + [phone] Baldev Diop PA-C Primary Care Provider + -[phone] Reason for Visit * Reason Onset Date Comments Faxed Order 11/09/2019 Encounter Details Date Type Department Care Team Description 11/09/2019 Telephone Adult Medicine [address] [address] Arturo Bansal MD [address] [place] [address] Faxed Order Social History Tobacco Use Types [...] * Telephone Encounter - Marisel Cast - 11/09/2019 5:46 PM EDT [facility] IS FAXING ORDERS TO BE SIGN AND FAX BACK TO [phone]. documented in this encounter Plan of Treatment Not on file documented as of this encounter Visit Diagnoses Not on filedocumented in this encounter Care Teams Director Sales Support Relationship Specialty Start Date End Date Arturo Bansal MD [address] [place] [address] PCP - General Internal Medicine 07/14/19 07/28/20 Baldev Diop PA-C [address] [place] [address] PCP - General Internal Medicine 07/29/20 documented as of this encounter
--- OUTSIDE RECORDS SUMMARY | 2025-03-10 10:02 | XMS_ITS | Encounter Summary ---
Author Organization [facility] Address [address] [place] [address] Care Team Providers Care Change Over Name Role Phone Arturo Bansal MD Primary Care Provider + [phone] Baldev Diop PA-C Primary Care Provider + -[phone] Reason for Visit * Reason Onset Date Comments Faxed Order 11/09/2019 Encounter Details Date Type Department Care Team Description 11/09/2019 Telephone Adult Medicine [address] [address] Arturo Bansal MD [address] [place] [address] Faxed Order Social History Tobacco Use Types [...] Marisel Cast - 11/09/2019 5:46 PM EDT [facility] IS FAXING ORDERS TO BE SIGN AND FAX BACK TO [phone]. documented in this encounter Plan of Treatment Not on file documented as of this encounter Visit Diagnoses Not on filedocumented in this encounter Care Teams Change Over Relationship Specialty Start Date End Date rAturo Bansal MD [address] [place] [address] PCP - General Internal Medicine 07/14/19 07/28/20 Baldev Diop PA-C [address] [place] [address] PCP - General Internal Medicine 07/29/20 documented as of this encounter
--- OUTSIDE RECORDS SUMMARY | 2025-03-10 10:02 | XMS_ITS | Encounter Summary ---
Author Organization [facility] Address [address] [place] [address] Care Team Providers Care Revit Drafter Name Role Phone Tej oYon MD Primary Care Provider [phone] Arturo Bansal MD Primary Care Provider + [phone] Baldev Diop PA-C Primary Care Provider +[phone] Encounter Details Date Type Department Care Team Description 04/23/2019 Orders Only Adult Medicine [address] [address] Anuja Nnues MD Social History Tobacco Use Types Packs/Day [...] on filedocumented in this encounter Care Teams Revit Drafter Relationship Specialty Start Date End Date Tej Yoon MD [address] [place] [address] [phone] PCP - General Internal Medicine 02/10/19 07/13/19 Arturo Bansal MD [address] [place] [address] PCP - General Internal Medicine 07/14/19 07/28/20 Baldev Diop PA-C [address] [place] [address] PCP - General Internal Medicine 07/29/20 documented as of this encounter
--- OUTSIDE RECORDS SUMMARY | 2025-03-10 10:02 | XMS_ITS | Encounter Summary ---
Author Organization [facility] Address [address] [place] [address] Care Team Providers Care Paint Line Supervisor Name Role Phone Tej Yoon MD Primary Care Provider [phone] Arturo Bansal MD Primary Care Provider + [phone] Baldev Diop PA-C Primary Care Provider + -[phone] Reason for Visit * Reason Onset Date Comments Faxed Order 04/21/2019 Encounter Details Date Type Department Care Team Description 04/21/2019 Telephone Adult Medicine [address] [phone] Tej Yoon MD [address] [place] [address] [phone] Faxed Order Social History Tobacco Use Types [...] encounter Miscellaneous Notes * Telephone Encounter - Inez Arciniega - 04/21/2019 10:22 AM EST Communication note and medication profile for Dr Tej Yoon's signature documented in this encounter Plan of Treatment Not on file documented as of this encounter Visit Diagnoses Not on filedocumented in this encounter Care Teams Paint Line Supervisor Relationship Specialty Start Date End Date Tej Yoon MD [address] [place] [address] PCP - General Internal Medicine 02/10/19 07/13/19 Arturo Bansal MD [address] [place] [address] [phone] PCP - General Internal Medicine 07/14/19 07/28/20 Baldev Diop PA-C [address] [place] [address] [phone] PCP - General Internal Medicine 07/29/20 documented as of this encounter
--- OUTSIDE RECORDS SUMMARY | 2025-03-10 10:03 | XMS_ITS | Encounter Summary ---
Author Organization [facility] Address [address] [place] [address] Care Team Providers Care Maintenance Team Leader Name Role Phone Tej Yoon MD Primary Care Provider [phone] Arturo Bansal MD Primary Care Provider + [phone] Baldev Diop PA-C Primary Care Provider + -[phone] Reason for Visit * Reason Onset Date Comments Prior Authorization 06/02/2019 Encounter Details Date Type Department Care Team Description 06/02/2019 Telephone Adult Medicine [address] [phone] Tej Yoon MD [address] [place] [address] [phone] Prior Authorization Social History Tobacco Use Types Packs/Day Years [...] encounter Miscellaneous Notes * Telephone Encounter - Aida Cha M.A. - 07/23/2019 8:12 AM EDT Prior authorization for the lyalmaa was approved Approved from 07/22/2019 to 07/21/2020 Prior authorization approval number # [id number] Approval faxed to [facility] at [phone] * Telephone Encounter - Aida Cha M.A. - 07/22/2019 3:24 PM EDT Spoke with Jesus from pts pharmacy who stated that the sylvia was still requiring a prior authorization. Redone today on cover my meds. Dx M79.7 Fibromyalgia Pt has tried Gabapentin Duloxetine Pt is on a tricyclic antidepressent. * Telephone Encounter - Baldev Diop PA-C - 06/03/2019 12:08 PM EST I think the patient most likely does have chronic myofascial pain/fibromyalgia. I will add this diagnosis to his problem list. * Telephone Encounter - Coty Myers M.A. - 06/03/2019 9:45 AM EST Pregabalin not covered by insurance. The patient has used:tramadol, gabapentin, percocet, TYLENOL WITH CODEINE #3, & naproxen Patient must have a Dx of fibromyalgia, DIABETIC NEUROPATHY, or SPINAL CORD INJURY. Coty Myers MA Prior Authorization Dept. Ext: [phone] Please respond back to [id number] Thank You * Telephone Encounter - Coty Myers M.A. - 06/03/2019 8:58 AM EST Dx Code:Neck pain & lower back pain Past Rx tried & fail:tramadol, gabapentin, percocet, TYLENOL WITH CODEINE #3, & naproxen Other pertinent information:Prior authorization completed on cover my meds. Coty Myers MA Prior Authorization Dept. Ext: [phone] Please respond back to [id number] Thank You * Telephone Encounter - Jacinto Nation - 06/02/2019 10:25 AM EST Prior Authorization for Medication-do not complete and send this encounter unless you have the fax from the pharmacy. Is this a Cover My Meds request: Yes -- Gloria Code [id number] Name of Medication Pregabalin Dose of Medication 75mg What is the RX # from the faxed refill? Not on form How does patient take this med? Not on form What Pharmacy did the fax come from: [facility] fax #: [phone] [employer] Party Information from fax: What Prescription Plan does the patient have? Not on form BIN/PCN if applicable: Not on form Cardholder ID:Not on form Person Code: Not on form Relationship Code: Not on form Help desk phone: Not on form documented in this encounter Plan of Treatment Not on file documented as of this encounter Visit Diagnoses Diagnosis Fibromyalgia- Primary Mylagia and myositis, unspecified Cervical disc herniation Displacement of cervical intervertebral disc without myelopathy documented in this encounter Care Teams Maintenance Team Leader Relationship Specialty Start Date End Date Tej Yoon MD [address] [place] [address] PCP - General Internal Medicine 02/10/19 07/13/19 Arturo Bansal MD [address] [place] [address] PCP - General Internal Medicine 07/14/19 07/28/20 Baldev Diop PA-C [address] [place] [address] PCP - General Internal Medicine 07/29/20 documented as of this encounter
--- OUTSIDE RECORDS SUMMARY | 2025-03-10 10:03 | XMS_ITS | Encounter Summary ---
Author Organization [facility] Address [address] [place] [address] Care Team Providers Care Wirer Street Light Name Role Phone Tej Yoon MD Primary Care Provider [phone] Arturo Bansal MD Primary Care Provider + [phone] Baldev Diop PA-C Primary Care Provider + -[phone] Reason for Visit * Reason Onset Date Comments Faxed Order 05/28/2019 [facility] #[id number] Encounter Details Date Type Department Care Team Description 05/28/2019 Telephone Adult Medicine [address] [phone] Tej Yoon MD [address] [place] [address] [phone] Faxed Order ([facility] #[id number]) Social History Tobacco Use Types Packs/Day Years [...] encounter Miscellaneous Notes * Telephone Encounter - Raven aMdsen - 06/19/2019 1:36 PM EST More faxed orders received * Telephone Encounter - Raven Madsen - 06/17/2019 2:54 PM EST More faxed orders received * Telephone Encounter - Nia Luis - 05/28/2019 4:26 PM EST FAXED FROM [facility] IN DR. YOON'S BOX FOR SIGNATURE AND TO BE FAXED BACK TO [phone] documented in this encounter Plan of Treatment Not on file documented as of this encounter Visit Diagnoses Not on filedocumented in this encounter Care Teams Wirer Street Light Relationship Specialty Start Date End Date Tej Yoon MD [address] [place] [address] [phone] PCP - General Internal Medicine 02/10/19 07/13/19 Arturo Bansal MD [address] [place] [address] PCP - General Internal Medicine 07/14/19 07/28/20 Baldev Diop PA-C [address] [place] [address] PCP - General Internal Medicine 07/29/20 documented as of this encounter
--- OUTSIDE RECORDS SUMMARY | 2025-03-10 10:03 | XMS_ITS | Encounter Summary ---
Author Organization [facility] Address [address] [place] [address] Care Team Providers Care Leadership Intern Name Role Phone Tej Yoon MD Primary Care Provider [phone] Arturo Bansal MD Primary Care Provider + [phone] Baldev Diop PA-C Primary Care Provider + [phone] Reason for Visit * Reason Onset Date Comments Form 06/01/2019 [facility] DTA Encounter Details Date Type Department Care Team Description 06/01/2019 Telephone Adult Medicine [address] [phone] Tej Yoon MD [address] [place] [address] [phone] Form ([facility] DTA ) Social History Tobacco Use Types Packs/Day Years [...] encounter Miscellaneous Notes * Telephone Encounter - Kamila Ledbetter M.A. - 06/16/2019 11:06 AM EST DTA form given to Dr Yoon at time of office visit Form given to Dahiana/nurse * Telephone Encounter - Stacy Jc M.A. - 06/09/2019 3:53 PM EST Noted * Telephone Encounter - Lacey Morris - 06/09/2019 3:26 PM EST Patient already has a appoitment scheduled with Dr. Bansal for next month. He states that he is his primary and not Dr. Yoon. * Telephone Encounter - Baldev Diop PA-C - 06/03/2019 3:42 PM EST The patient certainly may qualify as he does have some chronic pain issues. However I think usuallythe PCP needs to fill this out. He will be seeing Dr. Bansal next month, although his PCP is listed as Dr. Yoon. Might want to set up follow-up with Dr. Karrie Diop PA-C * Telephone Encounter - Stacy Jc M.A. - 06/03/2019 2:32 PM EST Pt saw you on 05/15/2019. This is a DTA form for disability valerio assistance. Does pt qualify? This has to be filled out within 30 days of the office visit, so if you cannot fill out pt needs to see PCP * Telephone Encounter - Lacey Morris - 06/01/2019 1:19 PM EST If patient presents with the one of the forms directly below the direct patient with their forms toMedical Records to be completed by [facility]. [facility] disability forms ONLY All Producer requests for Worker's Compensation Motor vehicle accident [facility] Elder Care/[facility] Physical forms for long-term housing Life insurance FORMS TO BE COMPLETED IN THE PRACTICE: Type of form: Department of Transitional Assistance Release of information form ( all sections) has been completed and Signed.YES If this form is for the Registry of Motor Vechicles for a handicap placard or plate is the patient go to be: N/A -not a Registry form Is the patient still driving? N\A For what medical problem does the patient need this form completed? Is patients name on the form? YES Is the patients portion (demographics) of the form completed? YES Did the patient sign the form? YES Which provider is form to be completed by? Dr. Arturo Bansal Patient requesting the form be: Fax to other office/MD at fax # [phone] and a copy in PPU If form is not to be picked up by patient has patient been informed that RELEASE OF INFO form must be signed by them for alternate person to pickling machine operator form? YES Patient has been informed that completion will be in 7-10 business days: YES documented in this encounter Plan of Treatment Not on file documented as of this encounter Visit Diagnoses Not on filedocumented in this encounter Care Teams Leadership Intern Relationship Specialty Start Date End Date Tej Yoon MD [address] [place] [address] PCP - General Internal Medicine 02/10/19 07/13/19 Arturo Bansal MD [address] [place] [address] PCP - General Internal Medicine 07/14/19 07/28/20 Baldev Diop PA-C [address] [place] [address] [phone] PCP - General Internal Medicine 07/29/20 documented as of this encounter
--- OUTSIDE RECORDS SUMMARY | 2025-03-10 10:03 | XMS_ITS | Encounter Summary ---
Author Organization [facility] Address [address] [place] [address] Care Team Providers Care Deburr Technician Name Role Phone Anuja Nunes MD Primary Care Provider Unavail able Sammy Valverde MD Primary Care Provider Un available Tej Yoon MD Primary Care Provider [phone] Arturo Bansal MD Primary Care Provider + [phone] Baldev Diop PA-C Primary Care Provider +[phone] Encounter Details Date Type Department Care Team Description 06/21/2016 Release of Information Medical Records [address] [place] [address] Abstract, Provider Social History Tobacco Use Types Packs/Day Years Used Date Smoking Tobacco: Every Day Cigarettes 1 24 Alcohol Use Standard Drinks/Week Comments No 0 [...] on filedocumented in this encounter Care Teams Deburr Technician Relationship Specialty Start Date End Date Anuja Nunes MD PCP - General Internal Medicine 05/22/16 01/29/18 Sammy Valverde MD PCP - General Internal Medicine 01/30/1802/09 eTj Yoon MD [address] [place] [address] PCP - General Internal Medicine 02/10/19 07/13/19 Arturo Bansal MD [address] [place] [address] [phone] PCP - General Internal Medicine 07/14/19 07/28/20 Baldev Diop PA-C [address] [place] [address] PCP - General Internal Medicine 07/29/20 documented as of this encounter
--- OUTSIDE RECORDS SUMMARY | 2025-03-10 10:04 | XMS_ITS | Encounter Summary ---
Author Organization [facility] Address [address] [place] [address] Care Team Providers Care B2B Sales Professional Name Role Phone Arturo Bansal MD Primary Care Provider + [phone] Baldev Diop PA-C Primary Care Provider + [phone] Reason for Visit * Reason Onset Date Comments Faxed Order 08/06/2019 Encounter Details Date Type Department Care Team Description 08/06/2019 Telephone Adult Medicine [address] [address] Arturo Bansal MD [address] [place] [address] Faxed Order Social History Tobacco Use Types [...] encounter Miscellaneous Notes * Telephone Encounter - Violet Velarde - 10/05/2019 1:31 PM EDT Faxed order received from [facility]. Please review, sign, date, and fax back to [phone] * Telephone Encounter - Jacinto Nation - 09/18/2019 12:13 PM EDT Additional orders from [facility] to be signed and faxed back to [phone] * Telephone Encounter - Jacinto Ntaion - 08/13/2019 2:08 PM EDT Additional orders from [facility] to be signed and faxed back to [phone] * Telephone Encounter - Payton Staton - 08/06/2019 4:12 PM EDT Pt is losing services [facility] needs signed today * Telephone Encounter - Jacinto Nation - 08/06/2019 2:54 PM EDT Please sign orders for [facility], placed in Dr. Bansal's incoming documented in this encounter Plan of Treatment Not on file documented as of this encounter Visit Diagnoses Not on filedocumented in this encounter Care Teams B2B Sales Professional Relationship Specialty Start Date End Date Arturo Bansal MD [address] [place] [address] PCP - General Internal Medicine 07/14/19 07/28/20 Baldev Diop PA-C [address] [place] [address] PCP - General Internal Medicine 07/29/20 documented as of this encounter
--- OUTSIDE RECORDS SUMMARY | 2025-03-10 10:04 | XMS_ITS | Encounter Summary ---
Author Organization [facility] Address [address] [place] [address] Care Team Providers Care Electroencephalograph Technician Name Role Phone Tej Yoon MD Primary Care Provider [phone] Arturo Bansal MD Primary Care Provider + [phone] Baldev Diop PA-C Primary Care Provider +[phone] Encounter Details Date Type Department Care Team Description 07/01/2019 Home Health Certification Medical Records [address] [place] [address] [facility] [facility] Social History Tobacco Use Types [...] on filedocumented in this encounter Care Teams Electroencephalograph Technician Relationship Specialty Start Date End Date Tej Yoon MD [address] [place] [address] [phone] PCP - General Internal Medicine 02/10/19 07/13/19 Arturo Bansal MD [address] [place] [address] [phone] PCP - General Internal Medicine 07/14/19 07/28/20 Baldev Diop PA-C [address] [place] [address] [phone] PCP - General Internal Medicine 07/29/20 documented as of this encounter
--- OUTSIDE RECORDS SUMMARY | 2025-03-10 10:04 | XMS_ITS | Encounter Summary ---
Author Organization [facility] Address [address] [place] [address] Care Team Providers Care Leather Production Machine Operator Name Role Phone Anuja Nunes MD Primary Care Provider Unavail able Sammy Valverde MD Primary Care Provider Un available Tej Yoon MD Primary Care Provider [phone] Arturo Bansal MD Primary Care Provider [phone] Baldev Diop PA-C Primary Care Provider +[phone] Encounter Details Date Type Department Care Team Description 01/21/2017 Errand Runner Report Medical Records [address] [place] [address] Abstract, Provider Social History Tobacco Use Types [...] on filedocumented in this encounter Care Teams Leather Production Machine Operator Relationship Specialty Start Date End Date Anuja Nunes MD PCP - General Internal Medicine 05/22/16 01/29/18 Sammy Valverde MD PCP - General Internal Medicine 01/30/1802/09 Tej Yoon MD [address] [place] [address] PCP - General Internal Medicine 02/10/19 07/13/19 Arturo Bansal MD [address] [place] [address] PCP - General Internal Medicine 07/14/19 07/28/20 Baldev Diop PA-C [address] [place] [address] PCP - General Internal Medicine 07/29/20 documented as of this encounter
--- OUTSIDE RECORDS SUMMARY | 2025-03-10 10:04 | XMS_ITS | Encounter Summary ---
Author Organization [facility] Address [address] [place] [address] Care Team Providers Care Die Barber Name Role Phone Anuja Nunes MD Primary Care Provider Unavail able Sammy Valverde MD Primary Care Provider Un available Tej Yoon MD Primary Care Provider [phone] Arturo Bansal MD Primary Care Provider + [phone] Baldev Diop PA-C Primary Care Provider +[phone] Encounter Details Date Type Department Care Team Description 06/21/2016 Transfer Records Medical Records [address] [place] [address] Abstract, Provider Social History Tobacco Use Types [...] on filedocumented in this encounter Care Teams Die Barber Relationship Specialty Start Date End Date Anuja Nunes MD PCP - General Internal Medicine 05/22/16 01/29/18 Sammy Valverde MD PCP - General Internal Medicine 01/30/1802/09 Tej Yoon MD [address] [place] [address] PCP - General Internal Medicine 02/10/19 07/13/19 Arturo Bansal MD [address] [place] [address] [phone] PCP - General Internal Medicine 07/14/19 07/28/20 Baldev Diop PA-C [address] [place] [address] PCP - General Internal Medicine 07/29/20 documented as of this encounter
--- OUTSIDE RECORDS SUMMARY | 2025-03-10 10:05 | XMS_ITS | Encounter Summary ---
Author Organization [facility] Address [address] [place] [address] Care Team Providers Care Crew Supervisor Name Role Phone Sammy Valverde MD Primary Care Provider Un available Tej Yoon MD Primary Care Provider [phone] Arturo Bansal MD Primary Care Provider + [phone] Baldev Diop PA-C Primary Care Provider + [phone] Encounter Details Date Type Department Care Team Description 04/25/2018 Hospital Medical Records [address] [place] [address] Vic Bowie MD Social History Tobacco Use [...] on filedocumented in this encounter Care Teams Crew Supervisor Relationship Specialty Start Date End Date Sammy Valverde MD PCP - General Internal Medicine 01/30/1802/09 Tej Yoon MD [address] [place] [address] [phone] PCP - General Internal Medicine 02/10/19 07/13/19 Arturo Bansal MD [address] [place] [address] PCP - General Internal Medicine 07/14/19 07/28/20 Baldev Diop PA-C [address] [place] [address] PCP - General Internal Medicine 07/29/20 documented as of this encounter
--- OUTSIDE RECORDS SUMMARY | 2025-03-10 10:05 | XMS_ITS | Encounter Summary ---
Author Organization [facility] Address [address] [place] [address] Care Team Providers Care Centura Technical Lead Senior Developer Name Role Phone Baldev Diop PA-C Primary Care Provider +1 [phone] Encounter Details Date Type Department Care Team Description 07/11/2021 Home Health Certification Medical Records [address] [place] [address] [facility] [employer] Social History Tobacco Use Types [...] on filedocumented in this encounter Care Teams Centura Technical Lead Senior Developer Relationship Specialty Start Date End Date Baldev Diop PA-C [address] [place], [place] [phone] PCP - General Internal Medicine 07/29/20 documented as of this encounter
--- OUTSIDE RECORDS SUMMARY | 2025-03-10 10:05 | XMS_ITS | Encounter Summary ---
Author Organization [facility] Address [address] [place] [address] Care Team Providers Care Bean Sorter Name Role Phone Anuja Nunes MD Primary Care Provider Unavail able Sammy Valverde MD Primary Care Provider Un available Tej Yoon MD Primary Care Provider [phone] Arturo Bansal MD Primary Care Provider + [phone] Baldev Diop PA-C Primary Care Provider +[phone] Encounter Details Date Type Department Care Team Description 02/11/2017 [facility] Medical Records [address] [place] [id number] Abstract, Provider Social History Tobacco Use Types [...] on filedocumented in this encounter Care Teams Bean Sorter Relationship Specialty Start Date End Date Anuja Nunes MD PCP - General Internal Medicine 05/22/16 01/29/18 Sammy Valverde MD PCP - General Internal Medicine 01/30/1802/09 Tej Yoon MD [address] [place] [address] [phone] PCP - General Internal Medicine 02/10/19 07/13/19 Arturo Bansal MD [address] [place] [address] [phone] PCP - General Internal Medicine 07/14/19 07/28/20 Baldev Diop PA-C [address] [place] [address] PCP - General Internal Medicine 07/29/20 documented as of this encounter
--- OUTSIDE RECORDS SUMMARY | 2025-03-10 10:06 | XMS_ITS | Encounter Summary ---
Author Organization [facility] Address [address] [place] [address] Care Team Providers Care Linux System Engineer Name Role Phone Sammy Valverde MD Primary Care Provider Un available Tej Yoon MD Primary Care Provider [phone] Arturo Bansal MD Primary Care Provider + [phone] Baldev Diop PA-C Primary Care Provider + [phone] Encounter Details Date Type Department Care Team Description 04/29/2018 Hospital Medical Records [address] [place] [address] Vic Bowie MD Social History Tobacco Use [...] on filedocumented in this encounter Care Teams Linux System Engineer Relationship Specialty Start Date End Date Sammy Valverde MD PCP - General Internal Medicine 01/30/1802/09 Tej Yoon MD [address] [place] [address] [phone] PCP - General Internal Medicine 02/10/19 07/13/19 Arturo Bansal MD [address] [place] [address] PCP - General Internal Medicine 07/14/19 07/28/20 Baldev Diop PA-C [address] [place] [address] PCP - General Internal Medicine 07/29/20 documented as of this encounter
--- OUTSIDE RECORDS SUMMARY | 2025-03-10 10:07 | XMS_ITS | Encounter Summary ---
Author Organization [facility] Address [address] [place] [address] Care Team Providers Care Application Integration Specialist Name Role Phone Baldev Diop PA-C Primary Care Provider +1 -[phone] Reason for Visit * Reason Onset Date Comments Faxed Order 02/22/2022 [facility] order date 01/31/22 Encounter Details Date Type Department Care Team Description 02/22/2022 Telephone Adult Medicine [facility] [address] [place] [address] Baldev Diop PA-C [address] [place] [phone] Faxed Order ([facility] order date 01/31/22) Social History Tobacco Use Types Packs/Day Years [...] * Telephone Encounter - Cha Pérez - 02/22/2022 1:06 PM EDT Orders from [facility] to be signed and faxed back to [phone] . documented in this encounter Plan of Treatment Not on file documented as of this encounter Visit Diagnoses Not on filedocumented in this encounter Care Teams Application Integration Specialist Relationship Specialty Start Date End Date Baldev Diop PA-C [address] [place] [address] PCP - General Internal Medicine 07/29/20 documented as of this encounter
--- OUTSIDE RECORDS SUMMARY | 2025-03-10 10:07 | XMS_ITS | Encounter Summary ---
Author Organization [facility] Address [address] [place] [address] Care Team Providers Care Site Controller Name Role Phone Baldev Diop PA-C Primary Care Provider +1 [phone] Encounter Details Date Type Department Care Team Description 02/05/2022 Home Health Certification Medical Records [address] [place] [address] [facility] Social History Tobacco Use Types [...] on filedocumented in this encounter Care Teams Site Controller Relationship Specialty Start Date End Date Baldev Diop PA-C [address] [place], [place] [phone] PCP - General Internal Medicine 07/29/20 documented as of this encounter
--- OUTSIDE RECORDS SUMMARY | 2025-03-10 10:07 | XMS_ITS | Encounter Summary ---
Author Organization [facility] Address [address] [place] [address] Care Team Providers Care Architecture Analyst Name Role Phone Baldev Diop PA-C Primary Care Provider +1 -[phone] Reason for Visit * Reason Onset Date Comments Faxed Order 12/26/2021 [facility] 2 Encounter Details Date Type Department Care Team Description 12/26/2021 Telephone Adult Medicine [address] [address] Baldev Diop PA-C [address] [place] [phone] Faxed Order ([facility] 12/04/21 ) Social History Tobacco Use Types Packs/Day [...] * Telephone Encounter - Cha Pérez - 12/26/2021 3:31 PM EDT Orders from [facility] to be signed and faxed back to [phone] . documented in this encounter Plan of Treatment Not on file documented as of this encounter Visit Diagnoses Not on filedocumented in this encounter Care Teams Architecture Analyst Relationship Specialty Start Date End Date Baldev Diop PA-C [address] [place] [address] PCP - General Internal Medicine 07/29/20 documented as of this encounter
--- OUTSIDE RECORDS SUMMARY | 2025-03-10 10:07 | XMS_ITS | Encounter Summary ---
Author Organization [facility] Address [address] [place] [address] Care Team Providers Care Hall Coordinator Name Role Phone Baldev Diop PA-C Primary Care Provider [phone] Encounter Details Date Type Department Care Team Description 10/08/2021 Home Health Certification Medical Records [address] [place] [address] [facility] Social History Tobacco Use Types Packs/Day [...] on filedocumented in this encounter Care Teams Hall Coordinator Relationship Specialty Start Date End Date Baldev Diop PA-C [address] [place], [place] [phone] PCP - General Internal Medicine 07/29/20 documented as of this encounter
--- OUTSIDE RECORDS SUMMARY | 2025-03-10 10:08 | XMS_ITS | Encounter Summary ---
Author Organization [facility] Address [address] [place] [address] Care Team Providers Care Group President Name Role Phone Baldev Diop PA-C Primary Care Provider +1 -[phone] Reason for Visit * Reason Onset Date Comments Faxed Order 05/20/2022 [facility] 2021- 06/04/2022 Encounter Details Date Type Department Care Team Description 05/20/2022 Telephone Adult Medicine [address] [address] Baldev Diop PA-C [address] [place] [phone] Faxed Order ([facility] 04/06/2022- 06/04/2022) Social History Tobacco Use Types Packs/Day Years [...] on filedocumented in this encounter Care Teams Group President Relationship Specialty Start Date End Date Baldev Diop PA-C [address] [place] [address] PCP - General Internal Medicine 07/29/20 documented as of this encounter
--- OUTSIDE RECORDS SUMMARY | 2025-03-10 10:08 | XMS_ITS | Encounter Summary ---
Author Organization [facility] Address [address] [place] [address] Care Team Providers Care Field Sales Consultant Name Role Phone Sammy Valverde MD Primary Care Provider Un available Tej Yoon MD Primary Care Provider [phone] Arturo Bansal MD Primary Care Provider + [phone] Baldev Diop PA-C Primary Care Provider +[phone] Reason for Visit * Reason Onset Date Comments Faxed Order 08/12/2018 Encounter Details Date Type Department Care Team Description 08/12/2018 Telephone Adult Medicine [address] [phone] Sammy Valverde MD Faxed Order Social History Tobacco Use Types [...] * Telephone Encounter - Marisel Cast - 08/12/2018 3:10 PM EDT [facility] [place] IS FAXING ORDERS TO BE SIGN AND FAX BACK TO [phone]. documented in this encounter Plan of Treatment Not on file documented as of this encounter Visit Diagnoses Not on filedocumented in this encounter Care Teams Field Sales Consultant Relationship Specialty Start Date End Date Sammy Valverde MD PCP - General Internal Medicine 01/30/1802/09 Tej Yoon MD [address] [place] [address] [phone] PCP - General Internal Medicine 02/10/19 07/13/19 Arturo Bansal MD [address] [place] [address] [phone] PCP - General Internal Medicine 07/14/19 07/28/20 Baldev Diop PA-C [address] [place] [address] PCP - General Internal Medicine 07/29/20 documented as of this encounter
--- OUTSIDE RECORDS SUMMARY | 2025-03-10 10:10 | XMS_ITS | Encounter Summary ---
Author Organization [facility] Address [address] [place] [address] Care Team Providers Care Furniture Mover Helper Name Role Phone Sammy Valverde MD Primary Care Provider Un available Tej Yoon MD Primary Care Provider [phone] Arturo Bansal MD Primary Care Provider + [phone] Baldev Diop PA-C Primary Care Provider + [phone] Encounter Details Date Type Department Care Team Description 01/14/2019 Home Health Certification Medical Records [address] [place] [address] [facility] Social History Tobacco Use Types Packs/Day Years [...] on filedocumented in this encounter Care Teams Furniture Mover Helper Relationship Specialty Start Date End Date Sammy Valverde MD PCP - General Internal Medicine 01/30/1802/09 Tej Yoon MD [address] [place] [address] [phone] PCP - General Internal Medicine 02/10/19 07/13/19 Arturo Bansal MD [address] [place] [address] PCP - General Internal Medicine 07/14/19 07/28/20 Baldev Diop PA-C [address] [place] [address] PCP - General Internal Medicine 07/29/20 documented as of this encounter
--- OUTSIDE RECORDS SUMMARY | 2025-03-10 10:11 | XMS_ITS | Encounter Summary ---
Author Organization [facility] Address [address] [place] [address] Care Team Providers Care Pearl Technician Name Role Phone Sammy Valverde MD Primary Care Provider Un available Tej Yoon MD Primary Care Provider [phone] Arturo Bansal MD Primary Care Provider + [phone] Baldev Diop PA-C Primary Care Provider +[phone] Reason for Visit * Reason Onset Date Comments Faxed Order 01/23/2019 Encounter Details Date Type Department Care Team Description 01/23/2019 Telephone Adult Medicine [address] [phone] Sammy Valverde MD Faxed Order Social History [...] encounter Miscellaneous Notes * Telephone Encounter - Rani Leigh - 01/23/2019 3:56 PM EDT Faxed orders received from [facility], please sign and fax back to [phone]. documented in this encounter Plan of Treatment Not on file documented as of this encounter Visit Diagnoses Not on filedocumented in this encounter Care Teams Pearl Technician Relationship Specialty Start Date End Date Sammy Valverde MD PCP - General Internal Medicine 01/30/1802/09 Tej Yoon MD [address] [place] [address] PCP - General Internal Medicine 02/10/19 07/13/19 Arturo Bansal MD [address] [place] [address] PCP - General Internal Medicine 07/14/19 07/28/20 Baldev Diop PA-C [address] [place] [address] PCP - General Internal Medicine 07/29/20 documented as of this encounter
--- OUTSIDE RECORDS SUMMARY | 2025-03-10 10:11 | XMS_ITS | Encounter Summary ---
Author Organization [facility] Address [address] [place] [address] Care Team Providers Care Travel Information Center Supervisor Name Role Phone Baldev Diop PA-C Primary Care Provider [phone] Reason for Visit * Reason Onset Date Comments Faxed Order 10/22/2022 Order date 07/30, Episode date 08/04/2022--10/02/2022 Encounter Details Date Type Department Care Team Description 10/22/2022 Telephone Adult Medicine [address] [address] Baldev Diop PA-C [address] [place] [address] [phone] Faxed Order (Order date 07/30/2022, Episode date 08/04/2022--10/02/2022 ) Social History Tobacco Use Types Packs/Day [...] encounter Miscellaneous Notes * Telephone Encounter - Jacinto Nation - 10/22/2022 1:34 PM EDT Faxed orders from [facility], Order date 07/30/2022, Episode date 08/04/2022--10/02/2022, please sign, date and fax back to [phone] documented in this encounter Plan of Treatment Not on file documented as of this encounter Visit Diagnoses Not on filedocumented in this encounter Care Teams Travel Information Center Supervisor Relationship Specialty Start Date End Date Baldev Diop PA-C [address] [place] [address] PCP - General Internal Medicine 07/29/20 documented as of this encounter
--- OUTSIDE RECORDS SUMMARY | 2025-03-10 10:12 | XMS_ITS | Encounter Summary ---
Author Organization [facility] Address [address] [place] [address] Care Team Providers Care Hand Ii Thermal Cutter Name Role Phone Tej Yoon MD Primary Care Provider [phone] Arturo Bansal MD Primary Care Provider + [phone] Baldev Diop PA-C Primary Care Provider +[phone] Encounter Details Date Type Department Care Team Description 03/11/2019 [facility] Medical Records [address] [place] [address] Abstract, Provider Social History Tobacco Use Types [...] on filedocumented in this encounter Care Teams Hand Ii Thermal Cutter Relationship Specialty Start Date End Date Tej Yoon MD [address] [place] [address] PCP - General Internal Medicine 02/10/19 07/13/19 Arturo Bansal MD [address] [place] [address] [phone] PCP - General Internal Medicine 07/14/19 07/28/20 Baldev Diop PA-C [address] [place] [address] [phone] PCP - General Internal Medicine 07/29/20 documented as of this encounter
--- OUTSIDE RECORDS SUMMARY | 2025-03-10 10:12 | XMS_ITS | Encounter Summary ---
Author Organization [facility] Address [address] [place] [address] Care Team Providers Care Top Lift Compressor Name Role Phone Baldev Diop PA-C Primary Care Provider +1 -[phone] Reason for Visit * Reason Onset Date Comments Faxed Order 01/25/2023 [facility] Order date 11/27/22 Encounter Details Date Type Department Care Team Description 01/25/2023 Telephone Adult Medicine [facility] [address] [place] [address] Baldev Diop PA-C [address] [place] [address] [phone] Faxed Order ([facility] Order date 11/27/22) Social History Tobacco Use Types Packs/Day Years [...] encounter Miscellaneous Notes * Telephone Encounter - Lucero Dejesus - 01/25/2023 11:39 AM EDT [facility] Order date 11/27/22 documented in this encounter Plan of Treatment Not on file documented as of this encounter Visit Diagnoses Not on filedocumented in this encounter Care Teams Top Lift Compressor Relationship Specialty Start Date End Date Baldev Diop PA-C [address] [place] [address] PCP - General Internal Medicine 07/29/20 documented as of this encounter
--- OUTSIDE RECORDS SUMMARY | 2025-03-10 10:13 | XMS_ITS | Encounter Summary ---
Author Organization [facility] Address [address] [place] [address] Care Team Providers Care Masonry Installer Name Role Phone Baldev Diop PA-C Primary Care Provider +1 [phone] Encounter Details Date Type Department Care Team Description 06/06/2023 Telephone Adult Medicine [address] [address] Baldev Diop PA-C [address] [place] [address] [phone] Social History Tobacco Use Types Packs/Day Years [...] on filedocumented in this encounter Care Teams Masonry Installer Relationship Specialty Start Date End Date Baldev Diop PA-C [address] [place] [address] [phone] PCP - General Internal Medicine 07/29/20 documented as of this encounter
--- OUTSIDE RECORDS SUMMARY | 2025-03-10 10:13 | XMS_ITS | Encounter Summary ---
Author Organization [facility] Address [address] [place] [address] Care Team Providers Care Gas Engine Operator Compressors Name Role Phone Tej Yoon MD Primary Care Provider [phone] Arturo Bansal MD Primary Care Provider + [phone] Baldev Diop PA-C Primary Care Provider + [phone] Reason for Visit * Reason Onset Date Comments Faxed Order 2019 [facility] Encounter Details Date Type Department Care Team Description 2019 Telephone Adult Medicine [address] [phone] Tej Yoon MD [address] [place] [address] [phone] Faxed Order ([facility] ) Social History Tobacco Use Types Packs/Day [...] encounter Miscellaneous Notes * Telephone Encounter - Nia Smith - 2019 11:24 AM EST FAXED ORDERS FROM [facility] IN DR YOON'S BOX FOR SIGNATURE AND TO BE FAXED BACK TO [phone] documented in this encounter Plan of Treatment Not on file documented as of this encounter Visit Diagnoses Not on filedocumented in this encounter Care Teams Gas Engine Operator Compressors Relationship Specialty Start Date End Date Tej Yoon MD [address] [place] [address] PCP - General Internal Medicine 02/10/19 07/13/19 Arturo Bansal MD [address] [place] [address] PCP - General Internal Medicine 07/14/19 07/28/20 Baldev Diop PA-C [address] [place] [address] PCP - General Internal Medicine 07/29/20 documented as of this encounter
--- OUTSIDE RECORDS SUMMARY | 2025-03-10 10:13 | XMS_ITS | Encounter Summary ---
Author Organization [facility] Address [address] [place] [address] Care Team Providers Care Clay Machine Operator Name Role Phone Baldev Diop PA-C Primary Care Provider +[phone] -[phone] Reason for Visit * Reason Onset Date Comments Faxed Order 04/10/2023 [facility] C are Certification period 04/01/23-05/30/23 Encounter Details Date Type Department Care Team Description 04/10/2023 Telephone Adult Medicine [facility] [address] [place] [address] Baldev Diop PA-C [address] [place] [phone] Faxed Order ([facility] Care Certification period 04/01/23-05/30/23) Social History Tobacco Use Types Packs/Day Years [...] * Telephone Encounter - Lucero Dejesus - 04/10/2023 1:58 PM EST [facility] Care Certification period 04/01/23-05/30/23 documented in this encounter Plan of Treatment Not on file documented as of this encounter Visit Diagnoses Not on filedocumented in this encounter Care Teams Clay Machine Operator Relationship Specialty Start Date End Date Baldev Diop PA-C [address] [place] [address] PCP - General Internal Medicine 07/29/20 documented as of this encounter
== END 2025-03-09 14:12 | disposition home or self-care (01) ==
LOC: HO.HOSX 14:11
PROVIDERS: Visit Provider Physician Assistant
DX: Z13.89 Encounter for screening for other disorder (principal)

== ENCOUNTER 2025-03-26 15:59 | Outpatient (REF) | payer OTHER, SELFPAY ==
--- OUTSIDE RECORDS SUMMARY | 2013-01-05 20:00 | XMS_ITS | Continuity of Care Document ---
Author Organization [facility] Address [address] [place] [address] Phone Care Team Providers Care Chief Port Director Name Role Phone Bindu Bueno CRNA Unavailable Unavailable Procedures Procedure Date ANESTH, SPINE, CORD SURGERY Advance Directives Directive Yes / No Effective Date File Name No Information Encounters Encounter Description Practice Location Reason(s) For Visit Diagnoses Date Provider Providers Copied on Encounter [facility], [address], [place], [place], [address], [place] tel:[phone] [facility] No Information 3 Myles Ruano. [address], [place], [place], [id number] , [place]. Family History Family Member Type Diagnosis Age At Onset No Information Payers Payer name Insurance type Covered republican ID Authoriza tion(s) Auto [facility] [id number] Social History Type Description Quantity Date Captured [...]
--- OUTSIDE RECORDS SUMMARY | 2025-03-23 15:00 | XMS_ITS | Encounter Summary ---
Author Organization [facility] Address [address] [place] [phone] Care Team Providers Care Multimedia Project Manager Name Role Phone Baldev Diop Primary Care Provider [phone] [phone] Reason for Visit * Reason Comments Follow-up Abdominal Pain Blood in stool * Consultation (Routine) - Authorized Specialty Diagnoses / Procedures Referred By Jean aguilera Referred To Contact Gastroenterology Diagnoses Generalized abdominal pain Baldev Diop PA [address] [place] [address] Phone: tel: fax: Gastroenterology - [place] [address] [facility] [address] [place] [address] Phone: tel: fax: Referral ID Status Reason Start Date Expiration Date Visits Requested Visits Authorized [id number] Authorized Specialty Services Required 11/09/2024 11/09/2025 1 1 Encounter Details Date Type Department Care Team (Latest Contact Info) Description 03/23/2025 3:00 PM EST Office Visit Gastroenterology - [address] [facility] [address] [place] [phone] Nan Randall NP 299 [facility] [address] [place] [address] Gastroesophageal reflux disease, unspecified whether esophagitis present (Primary Dx); Grade II internal hemorrhoids; History of adenomatous polyp of colon; Tobacco use disorder; Marijuana use, continuous Social History Tobacco Use Types Packs/Day Years Used Date Smoking Tobacco: Every Day Cigarettes Smokeless Tobacco: Current Alcohol Use Standard Drinks/Week [...] on file documented as of this encounter Last Filed Vital Signs Vital Sign Reading Time Taken Comments Blood Pressure 136/80 03/23/2025 2:51 PM EST Pulse 81 03/23/2025 2:51 PM EST Temperature - - Respiratory Rate - - Oxygen Saturation 98% 03/23/2025 2:51 PM EST Inhaled Oxygen Concentration - - Weight 97.5 kg (215 lb) 03/23/2025 2:51 PM EST Height 170.2 cm (5' 7 ) 03/23/2025 2:51 PM EST Body Mass Index 33.67 03/23/2025 2:51 PM EST documented in this encounter Progress Notes * Nan Randall, TASHA - 03/23/2025 3:00 PM EST CHIEF COMPLAINT: Follow-up rectal bleeding HPI: Cuong Vargas is a 44 y.o. old male whose PMH includes cocaine use, anal fissure, hemorrhoids, anxiety, depression, drug-seeking behavior, cervical disc herniation, foraminal stenosis of cervical region and fibromyalgia previously referred to us by Baldev Diop PA presents to the gastroenterology department today for follow-up rectal bleeding. Patient was first seen on 07/23/2023 with complaints of rectal bleeding. He completed a diagnostic colonoscopy on which revealed grade 2 internal hemorrhoids. He has been using Anusol suppositories as needed. He reports intermittent bright red blood per rectum. He denies constipation. During his last office visit on 09/18/2024, I had discussed hemorrhoid banding. Attempts to reach patient toschedule appointment were futile. He did not respond to telephone calls. He reports persistent acidreflux despite omeprazole use. He is smoking 1 pack/day cigarettes. He admits he does not follow antireflux diet. He is also smoking 1 joint of marijuana daily. Today, he denies fever, nausea, vomiting, dysphagia, odynophagia, hematemesis, abdominal pain, lossof appetite, unintentional weight loss or dark tarry stools. No known family history of gastrointestinal cancer or IBD. Colonoscopy 07/31/2023: Three 2 to 5 mm polyps in the transverse colon. Grade 2 internal hemorrhoids. Pathology: Tubular adenoma. Recommend repeat colonoscopy in 5 years for surveillance. No historical EGD. ROS: GENERAL: No malaise, significant weight loss or fever HEENT: No changes in hearing or vision, nose bleeds or swallowing problems NECK: No lumps, goiter, pain or significant neck swelling RESPIRATORY: No cough, wheezing or shortness of breath CARDIOVASCULAR: No chest pain, leg swelling or palpitations GI: See HPI MUSCULOSKELETAL: Chronic back pain SKIN: No lesions, rash or itching PAST MEDICAL HISTORY: Problem List[1] PAST SURGICAL HISTORY: Surgical History[2] SOCIAL HISTORY: Social History[3] FAMILY HISTORY: Family History[4] MEDICATIONS: Medications Taking[5] ALLERGIES: Current Allergies[6] PHYSICAL EXAM: Visit Vitals BP 136/80 (BP Location: Left arm, Patient Position: Sitting, BP Cuff Size: Adult) Pulse 81 Ht 1.702 m (67 ) Wt 97.5 kg (215 lb) SpO2 98% BMI 33.67 kg/m?? Smoking Status Every Day BSA 2.09 m?? APPEARANCE: Alert and in no acute distress EYES: Conjunctiva and sclera normal. MOUTH/THROAT: No erythema, exudates or lesions noted NECK: Neck supple, no adenopathy HEART: RRR with normal S1 and S2 LUNG: clear to auscultation ABDOMEN: soft non tender, no ascites, guarding, or rebound. RECTAL: Exam deferred NEURO: Awake, alert and oriented x 3 SKIN: Skin color, texture, turgor normal. LABS: No pertinent labs within the last 1 month IMAGING: No pertinent imaging within the last 1 month IMPRESSION: 1. Gastroesophageal reflux disease, unspecified whether esophagitis present 2. Grade II internal hemorrhoids 3. History of adenomatous polyp of colon 4. Tobacco use disorder 5. Marijuana use, continuous PLAN: Cuong Vargas is a 44 y.o. old male whose PMH includes cocaine use, anal fissure, hemorrhoids, anxiety, depression, drug-seeking behavior, cervical disc herniation, foraminal stenosis of cervical region and fibromyalgia presents for follow-up rectal bleeding. 1. GERD: Chronic persistent GERD. Patient will greatly benefit from dietary and lifestyle changes. I recommend lifestyle modifications including weight loss, avoid tobacco, elevate head while in bed, sitting upright during and after meals, avoidance of food intake atleast less than 3 hours before bedtime and cessation of foods that potentially aggravate reflux symptoms such as coffee, chocolate,carbonated beverages, spicy foods, acidic foods and foods with high fat content. Take omeprazole asdirected. Given chronicity, and longstanding history of tobacco use disorder, I will schedule diagnostic EGD with tissue biopsy to rule out esophagitis/Campos's/dysplastic changes. He verbalizes understanding. 2. Grade 2 internal hemorrhoids; 3. History of adenomatous polyp of colon: Colonoscopy 07/31/2023: Three 2 to 5 mm polyps in the transverse colon. Grade 2 internal hemorrhoids. Pathology: Tubular adenoma. Recommend repeat colonoscopy in 5 years for surveillance. Avoid constipation or straining with bowel movements. Increase dietary fiber intake. May supplementfiber with Metamucil or Benefiber. Use Anusol suppositories as needed. I discussed hemorrhoid banding procedure. He would like to proceed. Appointment scheduled with Dr. Lloyd for 04/07/2025. 4. Tobacco use disorder: Chronic tobacco use. Currently smoking 1 pack/day. Tobacco use cessation education/counseling provided. He verbalizes understanding but there is hesitancy to quit. 5. Marijuana use, continuous: Chronic marijuana use. Currently smoking 1 joint per day. Marijuana use cessation strongly encouraged. He verbalizes understanding. Follow-up in 6 months. Patient agrees with the above plan and understands the need to follow up as indicated. Please note, this note may have been created in part by using [employer] dictation software, and therefore, it may contain typographical and/or grammatical errors inherent in a voice recognition software program I would like to thank Baldev Diop PA for the opportunity to partake in the patient's care. No orders of the defined types were placed in this encounter. AMB REFERRAL TO GASTROENTEROLOGY [1] Patient Active Problem List Diagnosis External hemorrhoids Anal fissure Anxiety Depression Drug-seeking behavior Cervical disc herniation Foraminal stenosis of cervical region Fibromyalgia Positive urine drug screen Acromioclavicular joint separation, left, sequela Chronic low back pain without sciatica Class 1 obesity [2] Past Surgical History: Procedure Laterality Date ANKLE SURGERY Left 2019 PROCEDURE: HISTORICAL ANKLE SURGERY; COMMENT: dr pierce COLONOSCOPY 07/31/2023 PROCEDURE: HISTORICAL COLONOSCOPY; COMMENT: 3 polyps 5 years Muslu OTHER SURGICAL HISTORY 2012 PROCEDURE: ---- OTHER ----; COMMENT: lumbar facectomy L5-S1, hemilaminectomy [3] Social History Tobacco Use Smoking status: Every Day Current packs/day: 1.00 Types: Cigarettes Smokeless tobacco: Current Substance Use Topics Alcohol use: No Drug use: Not Currently Types: Marijuana/Cannabis, Cocaine Comment: just marijuana now [4] Family History Problem Relation Name Age of Onset Colon cancer Maternal Grandfather Depression Mother Diabetes Father Diabetes Paternal Grandmother Diabetes Paternal Grandfather Colon cancer Paternal Grandfather [5] Outpatient Medications Marked as Taking for the 03/23/25 encounter (Office Visit) with Nan Randall NP Medication Sig Dispense Refill albuterol HFA (ProAir HFA) 90 mcg/actuation inhaler Inhale 2 puffs by mouth every 4 (four) hours ifneeded for wheezing or shortness of breath. 8.5 g 5 amitriptyline (ELAVIL) 10 mg tablet Take 1 tablet (10 mg total) by mouth at bedtime. GENERIC EXTERNAL MEDICATION Nifedipine 0.3% ointment Apply as a thin film TID to the perianal skin hydrocortisone (ANUSOL-HC) 25 mg suppository Insert 1 suppository (25 mg total) into the rectum 2 (two) times a day. For 14 days ibuprofen (ADVIL,MOTRIN) 800 mg tablet Take 1 tablet (800 mg total) by mouth every 8 (eight) hours if needed. nicotine (NICODERM CQ) 21 mg/[address] 1 patch on the skin 1 (one) time each day at the same time. For 42 days omeprazole (PriLOSEC) [address] capsule Take 1 capsule (20 mg total) by mouth 1 (one) time each day before breakfast. Do not crush or chew. 90 capsule 3 QUEtiapine (SEROquel) 50 mg tablet Take 1-2 mg by mouth at bedtime. sertraline (ZOLOFT) 100 mg tablet Take 1 tablet (100 mg total) by mouth 1 (one) time each day. sertraline (ZOLOFT) 50 mg tablet Take 1 tablet (50 mg total) by mouth 1 (one) time each day. traZODone (DESYREL) 150 mg tablet Take 1 tablet (150 mg total) by mouth at bedtime. [6] Allergies Allergen Reactions Aspirin Shortness of breath Eyes swell up and shortness of breath documented in this encounter Plan of Treatment Upcoming Encounters Date Type Department Care Team (Late st Contact Info) Description 04/07/2025 1:00 PM EST Office Visit Gastroenterology - [address] [phone] Kyle Lloyd DO [address] [address] 04/14/2025 9:00 AM EST Appointment [facility] Endoscopy [address] [place] [phone] Maira Ragland MD [address] [address] 06/02/2025 1:30 PM EST Office Visit Adult [address] [phone] [phone] documented as of this encounter Visit Diagnoses Diagnosis Gastroesophageal reflux disease, unspecified whether esophagitis present- Primary Grade II internal hemorrhoids History of adenomatous polyp of colon Personal history of colonic polyps Tobacco use disorder Marijuana use, continuous documented in this encounter Discontinued Medications Medication Sig Discontinue Reason Start Date End Da te polyethylene glycol (GoLYTELY) 236-22.74-6.74 -5.86 gram solution Take 240 mL by mouth once for 1 dose. Take 4L by mouth once for one dose. May substitue any PEG. Starting at 6PM the night before your procedure drink 1 8oz glasses at your own pace until rectals run clear. 07/23/2023 03/23/2025 sodium,potassium,mag sulfates (SUPREP) 17.5-3.13-1.6 gram recon soln bowel prep kit oral solution Take 177 mL by mouth See Admin Instructions for 2 doses. 07/23/2023 03/23/2025 documented as of this encounter Orders Outpatient Referral Count Last Ordered Date Fir st Ordered Date AMB REFERRAL TO GASTROENTEROLOGY 1 03/23/20 documented in this encounter Care Teams Multimedia Project Manager Relationship Specialty Start Date End Date Baldev Diop PA [address] [place] [address] PCP - General Internal Medicine 03/23/25 documented as of this encounter
--- NOTE | ~2025-03-26 | MR_ITS ---
EXAM: TECHNIQUE: Multiplanar multisequence imaging performed through a lower extremity joint without contrast. INDICATION: S93.402A - Sprain of unspecified ligament of left ankle, initial encounter, injury PRIOR: X-ray on 01/18/2025 FINDINGS: Achilles tendon / plantar fascia: There is very mild thickening of Achilles tendon. There is no abnormal signal. Plantar fascia is intact and unremarkable. Lateral ankle ligaments: Syndesmotic ligaments are intact. Anterior talofibular ligament is thin but intact. Posterior talofibular ligament and calcaneofibular ligaments are intact. Deltoid ligament complex: Anterior fibers are indistinct with increased signal on fluid sensitive sequences. There is also reactive marrow signal in the adjacent medial malleolus and talus. Ankle tendons: Peroneal, medial, and the anterior ankle tendons are intact without abnormal signal or size changes. Talar Dome: There is a small focal articular cartilage defect involving the medial shoulder of the talar dome with adjacent sclerotic, reactive marrow, and degenerative cystic changes. Sinus tarsi: Osteophytes. Into the sinus tarsi and there is fluid and cystic signal within the sinus tarsi. Bone marrow/Articular cartilage: Reactive marrow and degenerative cystic signal changes present along the anterior tibial plafond and. There is an ossification in the soft tissues anterior to the talotibial joint and dorsal to the talar neck that displaces subtle edema like signal. There is a posterior process of talus without abnormal marrow signal. There are marrow signal changes in the lateral process talus and moderate thinning of articular cartilage in the anterior aspect of the adjacent posterior facet. Degenerative cystic and reactive sclerosis changes also extend to the medial side of the posterior facet. Soft Tissues: There is no muscle edema or fatty streaking. There is no mass or fluid collection. 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 There is grade 2-3 chondromalacia with degenerative cystic and reactive marrow change in the lateral process talus. There is also obliteration of the typical fat signal within sinus tarsi is probably related to degenerative changes in the posterior facet. Possible anterior ankle impingement. There is a an ossification dorsal to the talar neck and degenerative marrow signal changes in the anterior tibial plafond. There is a full-thickness articular cartilage defect involving the medial shoulder of the talar dome with adjacent degenerative marrow signal. Mild Achilles tendinopathy. Age indeterminate grade 2 sprain anterior deltoid ligament complex. Electronically signed by: Bernard Zuluaga MD 03/26/2025 04:53 PM [facility]
--- OUTSIDE RECORDS SUMMARY | 2025-03-26 19:47 | XMS_ITS | Clinical Summary ---
Author Organization [address] Address [address] [place] [phone] Phone Care Team Providers Care Convention Services Manager Name Role Phone Baldev Diop Primary Care Provider [phone] [phone] Allergies Active Allergy Reactions Criticality Noted Date Comments Aspirin Shortness of breath High 06/20/2016 Eyes swell up and shortness of breath Medications QUEtiapine (SEROquel) 50 mg tablet Take 1-2 mg by mouth at bedtime. 08/08/19 24 Active sertraline (ZOLOFT) 100 mg tablet Take 1 tablet (100 mg total) by mouth 1 (one) time each day. 08/08/19 24 Active hydrocortisone (ANUSOL-HC) 25 mg suppository Insert 1 suppository (25 mg total) into the rectum 2 (two) times a day. For 14 days 08/26/19 24 Active amitriptyline (ELAVIL) 10 mg tablet Take 1 tablet (10 mg total) by mouth at bedtime. 07/09/19 24 Active ibuprofen (ADVIL,MOTRIN) 800 mg tablet Take 1 tablet (800 mg total) by mouth every 8 (eight) hours if needed. 07/09/19 24 Active QUEtiapine (SEROquel) 25 mg tablet Take 1 tablet (25 mg total) by mouth 2 (two) times a day. 07/09/19 24 Active traZODone (DESYREL) 150 mg tablet Take 1 tablet (150 mg total) by mouth at bedtime. 07/09/19 24 Active sertraline (ZOLOFT) 50 mg tablet Take 1 tablet (50 mg total) by mouth 1 (one) time each day. 07/09/19 24 Active nicotine (NICODERM CQ) 21 mg/[address] 1 patch on the skin 1 (one) time each day at the same time. For 42 days 07/09/19 24 Active GENERIC EXTERNAL MEDICATION Nifedipine 0.3% ointment Apply as a thin film TID to the perianal skin 06/05/19 Active albuterol HFA (ProAir HFA) 90 mcg/actuation inhalerIndicat ions:Routine general medical examination at a health care facility,Chron ic low back pain without sciatica, unspecified back pain laterality,Fib romyalgia,Cerv ical disc herniation,Bill g-seeking behavior,Anxie ty,Depression, unspecified depression type,Chronic pain of left ankle,Generali zed abdominal pain,Wheeze Inhale 2 puffs by mouth every 4 (four) hours if needed for wheezing or shortness of breath. 8.5 g 5 10/21/19 25 026 Active omeprazole (PriLOSEC) [address] capsuleIndicat ions:Routine general medical examination at a health care facility,Chron ic low back pain without sciatica, unspecified back pain laterality,Fib romyalgia,Cerv ical disc herniation,Bill g-seeking behavior,Anxie ty,Depression, unspecified depression type,Chronic pain of left ankle,Generali zed abdominal pain,Wheeze Take 1 capsule (20 mg total) by mouth 1 (one) time each day before breakfast. Do not crush or chew. 90 capsule 3 10/21/19 25 Active sodium,potassi um,mag sulfates (SUPREP) 17.5-3.13-1.6 gram recon soln bowel prep kit oral solution Take 177 mL by mouth See Admin Instructions for 2 doses. 07/23/19 24 025 Discontinued polyethylene glycol (GoLYTELY) 236-22.74-6.74 -5.86 gram solution Take 240 mL by mouth once for 1 dose. Take 4L by mouth once for one dose. May substitue any PEG. Starting at 6PM the night before your procedure drink 1 8oz glasses at your own pace until rectals run clear. 07/23/19 24 025 Discontinued Active Problems Problem Noted Date Diagnosed Date Class 1 obesity 03/17/2025 Chronic low back pain without sciatica 07/01/202 5 Cervical disc herniation 04/19/2024 Fibromyalgia 06/03/2019 Drug-seeking behavior 05/15/2019 Depression 08/08/2018 Anal fissure 01/31/2018 Overview (04/19/2024): Follows with general surgery Foraminal stenosis of cervical region 10/04/2017 Overview (04/19/2024): S/p x ray 10/04/2017 Acromioclavicular joint separation, left, sequel a 07/01/2017 Overview (04/19/2024): Follows with orthopedic surgery Anxiety 04/08/2017 Overview (04/19/2024): Follows with [facility] External hemorrhoids 02/12/2017 Positive urine drug screen 07/04/2016 Overview (04/19/2024): +ve cocaine Encounters Date Type Department Care Team Description 03/23/2025 3:00 PM EST Office Visit Gastroenterology - [address] [facility] [address] [place] [address] Nan Randall NP Gastroesophageal reflux disease, unspecified whether esophagitis present (Primary Dx); Grade II internal hemorrhoids; History of adenomatous polyp of colon; Tobacco use disorder; Marijuana use, continuous 03/23/2025 Telephone Gastroenterology - [place] 175 [facility] 175 [facility] [address] [place] [address] Maira Ragland MD 02/18/2025 1:00 PM EDT Ancillary Procedure Pulmonology - [place] [address] [facility] [address] [place] [address] from Last 3 Months Immunizations Immunization Administration Dates Next Due Influenza Quadravalent, MDCK , 0.5ml, with preservative (Flucelvax) 6mo and older 03/01/2021,02/12/2017 Tdap Tetanus diptheria acell ular pertussis (Boostrix; Adacel) 7yo and older 02/12/2017 Surgical History Surgery Date Site/Laterality Comments OTHER SURGICAL HISTORY 2013 PROCEDURE: ---- OTHER ----; COMMENT: lumbar facectomy [...] Anxiety 04/08/2017 DX:Anxiety; COMM ENT: Follows with [facility] Tobacco use 04/08/2017 DX:Tobacco use Acromioclavicular [...] Pulse 81 03/23/2025 2:51 PM EST Temperature 36.5 C (97.7 F) 10/20/2024 3:06 PM EDT Respiratory Rate 14 10/20/2024 3:06 PM EDT Oxygen Saturation 98% 03/23/2025 2:51 PM EST Inhaled Oxygen Concentration - - Weight 97.5 kg (215 lb) 03/23/2025 2:51 PM EST Height 170.2 cm (5' 7 ) 03/23/2025 2:51 PM EST Body Mass Index 33.67 03/23/2025 2:51 PM EST Plan of Treatment Upcoming Encounters Date Type Department Care Team (Late st Contact Info) Description 04/07/2025 1:00 PM EST Office Visit Gastroenterology - 299 [facility] [address] [phone] Kyle Lloyd DO [address] [address] 04/14/2025 9:00 AM EST Appointment [facility] Endoscopy [address] [place] [phone] Maira Ragland MD [address] [address] 06/02/2025 1:30 PM EST Office Visit Adult Medicine [address] [phone] Baldev Diop, [address] [phone] Health Maintenance Due Date Last Done Comments [...] on patient's age to complete this topic Goals Goal Patient Goal Type Associated Problems Recent Progress Patient-Stated? Author Autogenera asya Goal Care Plan Autogenerated Problem No Ambar Patel Procedures Procedure Name Priority Date/Time Associated Diagnosis [...] to direct LDL (10/28/2024 12:05 PM EDT) Pathologist [facility] Cholesterol 181 0 - 200 mg/dL LAB CHEMISTRY METHOD 10/28/2024 3:26 PM EDT [facility] Triglycerides 346(H) 0 - 150 mg/dL LAB CHEMISTRY METHOD 10/28/2024 3:26 PM EDT [facility] HDL 38(L) >=40 mg/dL LAB CHEMISTRY METHOD 10/28/2024 3:26 PM EDT [facility] LDL Calculated 74 0 - 100 mg/dL LAB CHEMISTRY METHOD 10/28/2024 3:26 PM EDT [facility] VLDL Cholesterol Gabino 69.2 mg/dL LAB CHEMISTRY METHOD 10/28/2024 3:26 PM EDT [facility] Non HDL Chol. (LDL+VLDL) 143 <145 mg/dL LAB CHEMISTRY METHOD 10/28/2024 3:26 PM EDT [facility] Chol/HDL Ratio 4.8(H) 0.0 - 4.4 LAB CHEMISTRY METHOD 10/28/2024 3:26 PM EDT [facility] Blood Venous blood specimen / Unknown Venipuncture / Unknown 10/28/2024 12:05 PM EDT 10/28/2024 12:05 PM EDT Baldev GUY LAB BLOOD ORDERABLES Gavi l Result [facility] [address] [place] [address], * Depression Screening (02/13/2024) Pathologist [facility] Depression Screening abstracted Historical Provider MD HEALTH MAINTENANCE Final Result * HIV Screening (03/17/2018) [facility] HIV Screening abstracted us Historical Provider HEALTH MAINTENANCE Final Result * Hepatitis C Screening (03/17/2018) Hepatitis C Screening abstracted us Historical Provider HEALTH MAINTENANCE Final Result from Last 3 Months or Most Recently Relevant to Health Maintenance Additional Health Concerns Active Problems Noted Date Diagnosed Date Autogenerated Problem 03/24/2025 Insurance [employer] PL[employer] Care Teams Convention Services Manager Relationship Specialty Start Date End Date Baldev Diop PA [address] [place] [address] PCP - General Internal Medicine 03/23/25
--- OUTSIDE RECORDS SUMMARY | 2025-03-26 19:47 | XMS_ITS | Encounter Summary ---
Author Organization [facility] Address [address] [place] [phone] Care Team Providers Care Process Owner Name Role Phone Baldev Diop Primary Care Provider [phone] Encounter Details Date Type Department Care Team ([facility] st Contact Info) Description 03/23/2025 Telephone Gastroenterology - [place] 175 [facility] 175 [facility] 200 [place] [phone] Maira Ragland MD 299 [facility] [address] [place] [address] Social History Tobacco Use Types Packs/Day Years [...] on file documented as of this encounter Progress Notes * Virgie Silva - 03/24/2025 10:06 AM EST Pt has been scheduled * Bebeto Luo - 03/23/2025 3:36 PM EST Patient saw Nan in office and needs to be scheduled for an EGD asked to be called tomorrow AM [facility]ner EGD - JESIKA documented in this encounter Plan of Treatment Upcoming Encounters Date Type Department Care Team (Late st Contact Info) Description 04/07/2025 1:00 PM EST Office Visit Gastroenterology - [address] [phone] Kyle Lloyd DO [address] [address] 04/14/2025 9:00 AM EST Appointment [facility] Endoscopy [address] [place] [phone] Maira Ragland MD [address] [address] 06/02/2025 1:30 PM EST Office Visit Adult [address] [phone] Baldev Diop PA [address] [place] [phone] documented as of this encounter Goals Goal Patient Goal Type Associated Problems Recent Progress Patient-Stated? Author Autogenera asya Goal Care Plan Autogenerated Problem No AmandaAmbar documented as of this encounter Visit Diagnoses Not on filedocumented in this encounter Additional Health Concerns Active Problems Noted Date Diagnosed Date Autogenerated Problem 03/24/2025 documented as of this encounter Care Teams Process Owner Relationship Specialty Start Date End Date Baldev Diop PA [address] [place] [phone] PCP - General Internal Medicine 03/23/25 documented as of this encounter
== END 2025-03-26 16:00 | disposition home or self-care (01) ==
LOC: HO.MRI 15:59
PROVIDERS: Visit Provider Student in an Organized Health Care Education/Training Program
DX: S93.402A Sprain of unspecified ligament of left ankle, initial encounter (principal); M25.373 Other instability, unspecified ankle; M67.472 Ganglion, left ankle and foot
CPT/HCPCS: 73721

== ENCOUNTER → 2025-03-26 16:09 | Outpatient (BNV) | payer OTHER, SELFPAY | PROVIDERS: Visit Provider Radiology Diagnostic Radiology | DX: M19.072 Primary osteoarthritis, left ankle and foot (principal) | CPT/HCPCS: 73721 ==

== ENCOUNTER 2025-04-21 09:21 | Outpatient (AMB) | payer OTHER, SELFPAY ==
--- NOTE | 2025-04-21 09:27 | A.OFFVIS_ITS ---
Intake Visit Reasons: preop/discuss MRI results Intake Note: 45 year old male coming in to [employer] information and to go over he MRI that was performed on 03/26/2025 been in a lot of pain pain exterer of the foot Child Care Giver Required: Yes Child Care Giver Services: Child Care Giver Present Child Care Giver Name: [id number] Allergies aspirin Allergy (Verified 02/15/25 13:48) swollen eyes HPI Comments Details: The patient is a 45 year old male presenting for a follow up for left ankle pain and chronic ankle instability. He reports the pain is exacerbated by cold weather and is particularly bothersome upon waking. The pain is so severe at times that he feels as if the bone is broken and he is unable to walk. He has noticed swelling in the left foot and ankle for the past couple of days, with pain noted to the anterior and posterior ankle, worse to the lateral aspect. He notes some relief when lying down but pain returns upon standing. He has a CAM boot that he uses when he has to walk a lot, but reports the pain persists even at rest. He states the lace up ankle brace provides no relief. He denies any new injuries or pedal concerns. FORMERLY [facility], [facility] Medical History (Updated 02/16/25 @ 14:36 by Maura Adkins DPM) Impingement syndrome of left ankle Left ankle swelling Left ankle pain Ganglion, left ankle and foot Chronic instability of ankle Left ankle sprain Review of Systems Const Details: Review of Systems - Musculoskeletal: Reports severe pain in the left ankle, describing it as feeling broken and causing inability to walk. Reports swelling in the left foot and ankle and pain on movement of the ankle. Pain is worse in the cold and upon waking. All systems reviewed & are unremarkable except as noted in HPI and below Physical Exam Extrem Other: LLE Focused Physical Exam: Derm: Edema noted to the left ankle and extending towards the foot, worsened to the lateral aspect. Scabbing noted diffusely. No open lesions abrasions or wounds noted. No clinical signs of infection noted. Skin supple and turgor WNL. No ecchymosis or erythema noted. Soft tissue mass noted to the anterior aspect of the lateral gutter of the ankle. Vasc: DP/PT pulses palpable. CFT < 3 secs. TG: warm to warm. Pedal hair present but diminished. No varicosities noted. No varicosities noted. Neuro: Protective sensations grossly intact, but reports a vibration sensation that radiates from the foot to the tibial tuberosity of the LLE. MSK: Pain on palpation to the left ankle along the lateral gutter, the lateral malleolus, and lateral ankle ligaments. Palpable mass noted to the lateral gutter of the ankle, no change in size noted. ROM of the ankle decreased, with difficulty dorsiflexing, plantar flexion, and eversion due to guarding from pain. Mild pain on palpation to the anterior and medial aspect of the ankle. Mild pain on palpation to the posterior aspect of the ankle. No crepitus noted. ROM of the forefoot WNL. Antalgic gait noted unassisted. MMT 4/5. Office Procedures AMB Joint Injection/Aspir Pod Joint Injection/Aspiration Podiatry: Procedure: Left ankle cortisone injection: Cleansed the left ankle with an alcohol swab in the area of the lateral gutter at the most painful location previously marked. Next injected 2 cc of lidocaine plain, 1 cc of dexamethasone, and 1 cc of triamcinolone in the area of the previously marked area with no incidents. A band-aid was applied to the area. Provided patient with after care instructions. LT - Injection of intermediate joint LT Procedure code (CPT) selection complete Office Meds triamcinolone acetonide 40 mg/mL suspension for injection Performing Provider: Maura Adkins DPM Performing Location: [facility] Administered by: Maura Adkins DPM on 04/28/25 12:07 Dose Route Admin Location Dispensed Lot Number Expiration Date [facility] [employer] 40 mg intra-articular 1 mL [id number] [employer]N [employer] Total Dispensed Waste 1 mL 0 % dexamethasone sodium phosphate 4 mg/mL injection solution Performing Provider: Maura Adkins DPM Performing Location: [facility] Administered by: Maura Adkins DPM on 04/28/25 12:07 2 Dose Route Admin Location Dispensed Lot Number Expiration Date [facility] [employer] 4 mg intra-articular 1 mL [id number] MYL AN INSTITUTI Total Dispensed Waste 1 mL 0 % lidocaine HCl 10 mg/mL (1 %) injection solution Performing Provider: Maura Adkins DPM Performing Location: [facility] Administered by: Maura Adkins DPM on 04/28/25 12:07 Dose Route Admin Location Dispensed Lot Number Expiration Date [facility] [employer] 2 mL intra-articular 2 mL [id number] Total Dispensed Waste 2 mL 0 % Results Reviewed Results Reviewed: Podiatry read of left ankle MRI (03/26/2025): Talar OCD lesion noted medially. STJ and sinus tarsi edema. Impingement of the anterior aspect of the ankle. Left ankle MRI (03/26/2025): FINDINGS: Achilles tendon / plantar fascia: There is very mild thickening of Achilles tendon. There is no abnormal signal. Plantar fascia is intact and unremarkable. Lateral ankle ligaments: Syndesmotic ligaments are intact. Anterior talofibular ligament is thin but intact. Posterior talofibular ligament and calcaneofibular ligaments are intact. Deltoid ligament complex: Anterior fibers are indistinct with increased signal on fluid sensitive sequences. There is also reactive marrow signal in the adjacent medial malleolus and talus. Ankle tendons: Peroneal, medial, and the anterior ankle tendons are intact without abnormal signal or size changes. Talar Dome: There is a small focal articular cartilage defect involving the medial shoulder of the talar dome with adjacent sclerotic, reactive marrow, and degenerative cystic changes. Sinus tarsi: Osteophytes. Into the sinus tarsi and there is fluid and cystic signal within the sinus tarsi. Bone marrow/Articular cartilage: Reactive marrow and degenerative cystic signal changes present along the anterior tibial plafond and. There is an ossification in the soft tissues anterior to the talotibial joint and dorsal to the talar neck that displaces subtle edema like signal. There is a posterior process of talus without abnormal marrow signal. There are marrow signal changes in the lateral process talus and moderate thinning of articular cartilage in the anterior aspect of the adjacent posterior facet. Degenerative cystic and reactive sclerosis changes also extend to the medial side of the posterior facet. Soft Tissues: There is no muscle edema or fatty streaking. There is no mass or fluid collection. 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 There is grade 2-3 chondromalacia with degenerative cystic and reactive marrow change in the lateral process talus. There is also obliteration of the typical fat signal within sinus tarsi is probably related to degenerative changes in the posterior facet. Possible anterior ankle impingement. There is a an ossification dorsal to the talar neck and degenerative marrow signal changes in the anterior tibial plafond. There is a full-thickness articular cartilage defect involving the medial shoulder of the talar dome with adjacent degenerative marrow signal. Mild Achilles tendinopathy. Age indeterminate grade 2 sprain anterior deltoid ligament complex. Podiatry Read of Left ankle xray (01/18/25): Healed fracture noted to the distal tip of the medial malleolus. Arthritic changes noted to the ankle joint with osteophytic changes and demineralization noted. [place] noted to the anterior aspect of the ankle consistent with anterior ankle impingement. Os trigonum noted. No acute fractures or dislocations ntoed. Left ankle xray (01/18/25): FINDINGS: Ankle mortise is congruent. There is no widening of the syndesmosis. Talar dome is intact. There is a bony spur or exostosis or ossification dorsal to the junction of the talar neck and down, just anterior to the ankle joint. There is a posterior process of talus. There are no calcaneal enthesophyte(s). IMPRESSION: Possible anterior ankle impingement. Correlate for signs symptoms. There is a bony prominence anterior the ankle joint and dorsal to the junction of the talar neck and dome. There is a posterior process of talus with degenerative changes. Correlate for posterior ankle pain. Assessment & Plan Assessment & Plan (1) Left ankle sprain: Code(s): S93.402A - Sprain of unspecified ligament of left ankle, initial encounter Category: Medical Qualifiers: Encounter type: initial encounter Involved ligament of ankle: unspecified ligament Qualified Code(s): S93.402A - Sprain of unspecified ligament of left ankle, initial encounter (2) Chronic instability of ankle: Code(s): M25.373 - Other instability, unspecified ankle Category: Medical (3) Ganglion, left ankle and foot: Code(s): M67.472 - Ganglion, left ankle and foot Category: Medical (4) Left ankle pain: Code(s): M25.572 - Pain in left ankle and joints of left foot Category: Medical Qualifiers: Chronicity: chronic Qualified Code(s): M25.572 - Pain in left ankle and joints of left foot; G89.29 - Other chronic pain (5) Left ankle swelling: Code(s): M25.472 - Effusion, left ankle Category: Medical (6) Impingement syndrome of left ankle: Code(s): M25.872 - Other specified joint disorders, left ankle and foot Category: Medical Plan Patient was informed and verbally consented to the use of an ambient scribe for clinic note documentation during this visit. I reviewed the patient's MRI with him explaining the presence of ankle impingement, an OCD lesion, cystic and arthritic changes which causes his pain. We discussed that this condition may likely worsen over time. Will continue conservative treatment at this time and I recommended and administered a cortisone injection to the left ankle after obtaining consent. I prescribed Toradol for 5 days, to be followed by Celebrex, and recommended he wear a walking boot for stability. I advised him to follow up in six weeks to assess his response to the injection. If his pain has not improved, we will consider surgical intervention. - A cortisone injection was administered to the left ankle. - Prescribed Toradol to be taken for five days, followed by Celebrex for continued anti-inflammatory and analgesic effects. - Recommended wearing a walking boot for stability during periods of significant ambulation. - Discussed the possibility of surgical intervention if conservative treatment fails. - Continue RICE protocol. - Advised patient to wear supportive shoe gear and avoid barefoot walking. RTC in 6 weeks. Orders: Orders AMB Joint Injection/Aspiration Podiatry 04/21/25 G89.29 - Other chronic pain, M25.373 - Other instability, unspecified ankle, M25.472 - Effusion, left ankle, M25.572 - Pain in left ankle and joints of left foot, M25.872 - Other specified joint disorders, left ankle and foot, M67.472 - Ganglion, left ankle and foot, S93.402A - Sprain of unspecified ligament of left ankle, initial encounter Medications: New ketorolac maximum total duration of 5 days from all oral, intranasal, or parenteral formulations 10 mg PO Q8H PRN 15 tabs 0RF pain G89.29 - Other chronic pain, M25.373 - Other instability, unspecified ankle, M25.472 - Effusion, left ankle, M25.572 - Pain in left ankle and joints of left foot, M25.872 - Other specified joint disorders, left ankle and foot, M67.472 - Ganglion, left ankle and foot, S93.402A - Sprain of unspecified ligament of left ankle, initial encounter celecoxib (Celebrex) 100 mg PO BID 60 caps 0RF pain G89.29 - Other chronic pain, M25.373 - Other instability, unspecified ankle, M25.472 - Effusion, left ankle, M25.572 - Pain in left ankle and joints of left foot, M25.872 - Other specified joint disorders, left ankle and foot, M67.472 - Ganglion, left ankle and foot, S93.402A - Sprain of unspecified ligament of left ankle, initial encounter Coding Level of Care Code Est Pt Level 4 (02725) Diagnoses Sprain of left ankle, unspecified ligament, initial encounter S93.402A Encounter type: initial encounter Involved ligament of ankle: unspecified ligament Chronic instability of ankle M25.373 Ganglion, left ankle and foot M67.472 Chronic pain of left ankle M25.572; G89.29 Chronicity: chronic Left ankle swelling M25.472 Impingement syndrome of left ankle M25.872 CPT Codes Joint injectio/aspiration Podiatry - Joint Injection POD4: 58282 LT - Injection of intermediate joint LT ([id number]) Time Spent (min) 35 Comment 5 mins for procedure
--- OUTSIDE RECORDS SUMMARY | 2025-04-21 09:35 | XMS_ITS | Encounter Summary ---
Author Organization [facility] Prior to 02/21/[address] [place] [address] Care Team Providers Care Checker In Name Role Phone Arturo Bansal MD Primary Care Provider + [phone] Baldev Diop PA-C Primary Care Provider + [phone] Reason for Visit * Reason Onset Date Comments Faxed Order 04/19/2020 Encounter Details Date Type Department Care Team Description 04/19/2020 Telephone Adult Medicine [address] [address] Arturo Bansal MD [address] [place] [address] Faxed Order Social History Tobacco Use Types [...] Telephone Encounter - Marisel Cast - 04/19/2020 3:49 PM EST [facility] IS FAXING ORDERS TO BE SIGN AND FAX BACK TO [phone]. documented in this encounter Plan of Treatment Not on file documented as of this encounter Visit Diagnoses Not on filedocumented in this encounter Care Teams Checker In Relationship Specialty Start Date End Date Arturo Bansal MD [address] [place] [address] PCP - General Internal Medicine 07/14/19 07/28/20 Baldev Diop PA-C [address] [place] [address] PCP - General Internal Medicine 07/29/20 documented as of this encounter
--- OUTSIDE RECORDS SUMMARY | 2025-04-21 09:35 | XMS_ITS | Encounter Summary ---
Author Organization [facility] Prior to 02/21/[address] [place] [address] Care Team Providers Care Blue Line Operator Name Role Phone Anuja Nunes MD Primary Care Provider Unavail able Sammy Valverde MD Primary Care Provider Un available Tej Yoon MD Primary Care Provider [phone] Arturo Bansal MD Primary Care Provider + [phone] Baldev Diop PA-C Primary Care Provider + [phone] Encounter Details Date Type Department Care Team Description 04/24/2017 Linen Tech Report Medical Records [address] [place] [id number] Jaime Reynoso PA-C [address] [place] [address] [phone] Social History Tobacco Use Types Packs/Day Years [...] on filedocumented in this encounter Care Teams Blue Line Operator Relationship Specialty Start Date End Date Anuja Nunes MD PCP - General Internal Medicine 05/22/16 01/29/18 Sammy Valverde MD PCP - General Internal Medicine 01/30/1802/09 Tej Yoon MD [address] [place] [id number] PCP - General Internal Medicine 02/10/19 07/13/19 Arturo Bansal MD [address] [place] [address] PCP - General Internal Medicine 07/14/19 07/28/20 Baldev Diop PA-C [address] [place] [address] [phone] PCP - General Internal Medicine 07/29/20 documented as of this encounter
--- OUTSIDE RECORDS SUMMARY | 2025-04-21 09:35 | XMS_ITS | Encounter Summary ---
Author Organization [facility] Prior to 02/21/[address] [place] [address] Care Team Providers Care Bench Manager Name Role Phone Anuja Nunes MD Primary Care Provider Unavail able Sammy Valverde MD Primary Care Provider Un available Tej Yoon MD Primary Care Provider [phone] Arturo Bansal MD Primary Care Provider + [phone] Baldev Diop PA-C Primary Care Provider + [phone] Encounter Details Date Type Department Care Team Description 06/05/2017 Loom Changeover Operator Report Medical Records [address] [place] [address] Jaime Reynoso PA-C [address] [place] [address] [phone] Social History Tobacco Use Types Packs/Day Years [...] on filedocumented in this encounter Care Teams Bench Manager Relationship Specialty Start Date End Date Anuja Nunes MD PCP - General Internal Medicine 05/22/16 01/29/18 Sammy Valverde MD PCP - General Internal Medicine 01/30/1802/09 Tej Yoon MD [address] [place] [address] PCP - General Internal Medicine 02/10/19 07/13/19 Arturo Bansal MD [address] [place] [address] PCP - General Internal Medicine 07/14/19 07/28/20 Baldev Diop PA-C [address] [place] [address] [phone] PCP - General Internal Medicine 07/29/20 documented as of this encounter
--- OUTSIDE RECORDS SUMMARY | 2025-04-21 09:35 | XMS_ITS | Encounter Summary ---
Author Organization [facility] Prior to 02/21/[address] [place] [address] Care Team Providers Care Condemnation Engineer Name Role Phone Arturo Bansal MD Primary Care Provider + [phone] Baldev Diop PA-C Primary Care Provider [phone] Reason for Visit * Reason Onset Date Comments Faxed Order 11/09/2019 Encounter Details Date Type Department Care Team Description 11/09/2019 Telephone Adult Medicine [address] [address] Arturo Bansal MD [address] [place] [address] Faxed Order Social History Tobacco Use Types [...] Marisel Cast - 11/09/2019 5:46 PM EDT [facility] IS FAXING ORDERS TO BE SIGN AND FAX BACK TO [phone]. documented in this encounter Plan of Treatment Not on file documented as of this encounter Visit Diagnoses Not on filedocumented in this encounter Care Teams Condemnation Engineer Relationship Specialty Start Date End Date Arturo Bansal MD [address] [place] [address] PCP - General Internal Medicine 07/14/19 07/28/20 Baldev Diop PA-C [address] [place] [id number] PCP - General Internal Medicine 07/29/20 documented as of this encounter
--- OUTSIDE RECORDS SUMMARY | 2025-04-21 09:35 | XMS_ITS | Encounter Summary ---
Author Organization [facility] Prior to 02/21/[address] [place] [address] Care Team Providers Care Librarian Assistant Name Role Phone Baldev Diop PA-C Primary Care Provider [phone] Reason for Visit * Reason Onset Date Comments Faxed Order 08/30/2020 Encounter Details Date Type Department Care Team Description 08/30/2020 Telephone Adult Medicine [address] [phone] Baldev Diop PA-C [address] [place] [address] [phone] Faxed Order Social History Tobacco Use Types [...] 08/30/2020 10:50 AM EDT Fax orders from [facility], please sign and fax back. documented in this encounter Plan of Treatment Not on file documented as of this encounter Visit Diagnoses Not on filedocumented in this encounter Care Teams Librarian Assistant Relationship Specialty Start Date End Date Baldev Diop PA-C [address] [place] [id number] PCP - General Internal Medicine 07/29/20 documented as of this encounter
--- OUTSIDE RECORDS SUMMARY | 2025-04-21 09:35 | XMS_ITS | Encounter Summary ---
Author Organization [facility] Prior to 02/21/[address] [place] [address] Care Team Providers Care Cyber Defense Forensics Analyst Name Role Phone Baldev Diop PA-C Primary Care Provider [phone] Encounter Details Date Type Department Care Team Description 08/05/2023 Orders Only Medical Records [address] [place] [address] Radha Ragland MD [address] [place] [address] Social History Tobacco Use Types Packs/Day Years [...] as of this encounter Progress Notes * Maira Ragland MD - 08/26/2023 6:58 PM EDT Dear Cuong, The polyp(s) that were removed during your colonoscopy were precancerous, but benign. Fortunately, we removed them and therefore, they will not cause any more problems in the future. Based on the number, the size, and the features of the polyp(s) removed, I recommend a follow-up colonoscopy in 5 years. Before, the 5 years are due, we will send you a reminder in the mail asking you to contact our office to have the colonoscopy scheduled. I would like to personally thank you for allowing us to take care of you. Please don't hesitate to call us for any questions or concerns. Regards, Dorothy Ragland MD Board Certified Gastroenterology and Internal Medicine Transplant Hepatology [facility] documented in this encounter Plan of Treatment Not on file documented as of this encounter Procedures Procedure Name Priority Date/Time Associated Diagnosis Comments OUTSIDE PATHOLOGY Routine 07/31/2023 documented in this encounter Results * OUTSIDE PATHOLOGY (07/31/2023) H Sin Ragland MD OUTSIDE LAB documented in this encounter Visit Diagnoses Not on filedocumented in this encounter Care Teams Cyber Defense Forensics Analyst Relationship Specialty Start Date End Date Baldev Diop PA-C [address] [place] [phone] PCP - General Internal Medicine 07/29/20 documented as of this encounter
--- OUTSIDE RECORDS SUMMARY | 2025-04-21 09:35 | XMS_ITS | Encounter Summary ---
Author Organization [facility] Prior to 02/21/[address] [place] [address] Care Team Providers Care Neurologist Name Role Phone Baldev Diop PA-C Primary Care Provider [phone] Reason for Visit * Reason Onset Date Comments Faxed Order 08/31/2020 Encounter Details Date Type Department Care Team Description 08/31/2020 Telephone Adult Medicine [address] [address] Baldev Diop PA-C [address] [place] [address] Faxed Order Social History Tobacco Use Types [...] * Telephone Encounter - Jemma Keller - 08/31/2020 1:55 PM EDT Faxed order from [facility] documented in this encounter Plan of Treatment Not on file documented as of this encounter Visit Diagnoses Not on filedocumented in this encounter Care Teams Neurologist Relationship Specialty Start Date End Date Baldev Diop PA-C [address] [place] [address] PCP - General Internal Medicine 07/29/20 documented as of this encounter
--- OUTSIDE RECORDS SUMMARY | 2025-04-21 09:35 | XMS_ITS | Encounter Summary ---
Author Organization [facility] Prior to 02/21/[address] [place] [address] Care Team Providers Care Welt Rougher Name Role Phone Baldev Diop PA-C Primary Care Provider +1 [phone] Encounter Details Date Type Department Care Team Description 07/30/2023 Home Health Certification Medical Records [address] [place] [address] [facility], [facility] Social History Tobacco Use Types Packs/Day [...] on filedocumented in this encounter Care Teams Welt Rougher Relationship Specialty Start Date End Date Baldev Diop PA-C [address] [place], [place] [phone] PCP - General Internal Medicine 07/29/20 documented as of this encounter
--- OUTSIDE RECORDS SUMMARY | 2025-04-21 09:35 | XMS_ITS | Encounter Summary ---
Author Organization [facility] Prior to 02/21/[address] [place] [address] Care Team Providers Care Contact Lens Inspector Name Role Phone Arturo Bansal MD Primary Care Provider + [phone] Baldev Diop PA-C Primary Care Provider +[phone] Reason for Visit * Reason Onset Date Comments Faxed Order 12/14/2019 Encounter Details Date Type Department Care Team Description 12/14/2019 Telephone Adult Medicine [address] [phone] Arturo Bansal MD [address] [place] [address] [phone] Faxed Order Social History Tobacco Use Types [...] on filedocumented in this encounter Care Teams Contact Lens Inspector Relationship Specialty Start Date End Date Arturo Bansal MD [address] [place] [address] PCP - General Internal Medicine 07/14/19 07/28/20 Baldev Diop PA-C [address] [place] [address] PCP - General Internal Medicine 07/29/20 documented as of this encounter
--- OUTSIDE RECORDS SUMMARY | 2025-04-21 09:35 | XMS_ITS | Encounter Summary ---
Author Organization [facility] Prior to 02/21/[address] [place] [address] Care Team Providers Care Cost Controller Name Role Phone Baldev Diop PA-C Primary Care Provider [phone] Reason for Visit * Reason Onset Date Comments Faxed Order 06/09/2021 recertification (physician order) Encounter Details Date Type Department Care Team Description 06/09/2021 Telephone Adult Medicine [address] [address] Baldev Diop PA-C [address] [place] [phone] Faxed Order (recertification (physician order)) Social History Tobacco Use Types Packs/Day Years [...] encounter Miscellaneous Notes * Telephone Encounter - Clair Austin - 06/09/2021 8:20 AM EST [facility] FAXING ORDERS TO BE SIGNED AND FAXED BACK TO [phone] documented in this encounter Plan of Treatment Not on file documented as of this encounter Visit Diagnoses Not on filedocumented in this encounter Care Teams Cost Controller Relationship Specialty Start Date End Date Baldev Diop PA-C [address] [place] [address] PCP - General Internal Medicine 07/29/20 documented as of this encounter
--- OUTSIDE RECORDS SUMMARY | 2025-04-21 09:35 | XMS_ITS | Clinical Summary ---
Author Organization [facility] Prior to 02/21/[address] [place] [address] Care Team Providers Care Finance Executive Name Role Phone Baldev Diop PA-C Primary Care Provider +[phone] Allergies Active Allergy Reactions Severity Noted Date Comments Aspirin 06/20/2016 Eyes swell up and shortness of breath Medications Medication Sig Dispensed Refills Start Date End Date Status GENERIC MEDICATION Nifedipine 0.3% ointment Apply as a thin film TID to the perianal skin 60 g 2 06/05/2018 Active amitriptyline (ELAVIL) 10 MG tablet Take 1 Tablet by mouth at bedtime. 90 Tablet 3 07/09/2023 Active ibuprofen (ADVIL,MOTRIN) 800 MG tablet Take 1 Tablet by mouth every 8 hours as needed for Pain. 90 Tablet 3 07/09/2023 Active quetiapine (SEROquel) 25 MG tablet Take 1 Tablet by mouth 2 times daily. 180 Tablet 3 07/09/2023 Active trazodone (DESYREL) 150 MG tablet Take 1 Tablet by mouth at bedtime. 90 Tablet 3 07/09/2023 Active sertraline (Zoloft) 50 MG tablet Take 1 Tablet by mouth daily. 90 Tablet 3 07/09/2023 Active nicotine (NICODERM CQ) 21 MG/24HR Place 1 Patch onto the skin every 24 hours for 42 days. 42 Patch 0 07/09/2023 Active Na Sulfate-K Sulfate-Mg Sulf (Suprep Bowel Prep Kit) 17.5-3.13-1.6 GM/177ML Solution Take 177 mL by mouth See Admin Instructions for 2 doses. 354 mL 0 07/23/2023 Active polyethylene glycol (GoLYTELY,NuLYTEL Y) 236 g suspension Take 240 mL by mouth once for 1 dose. Take 4L by mouth once for one dose. May substitue any PEG. Starting at 6PM the night before your procedure drink 1 8oz glasses at your own pace until rectals run clear. 4000 mL 0 07/23/2023 Active quetiapine (SEROQUEL) 50 MG tablet Take 1-2 mg by mouth at bedtime. 0 08/08/2023 Active sertraline (ZOLOFT) 100 MG tablet Take 1 Tablet by mouth daily. 0 08/08/2023 Active hydrocortisone (ANUSOL-HC) [address] 1 Suppository rectally 2 times daily for 14 days. 28 Suppository 0 08/26/2023 Active Active Problems Problem Noted Date Family history of colon cancer 4 Fibromyalgia 06/03/2019 Drug-seeking behavior 05/15/2019 Depression 08/08/2018 Anal fissure 01/31/2018 Overview: Follows with general surgery Foraminal stenosis of cervical region Overview: S/p x ray 10/04/2017 Acromioclavicular joint separation, left , sequela 07/01/2017 Overview: Follows with orthopedic surgery Anxiety 04/08/2017 Overview: Follows with [facility] Tobacco use 04/08/2017 External hemorrhoids 02/12/2017 Positive urine drug screen 07/04/2016 Overview: +ve cocaine Cervical disc herniation Resolved Problems Problem Noted Date Resolved Date Closed displaced fracture of lateral end of left clavicle 02/12/2017 03/07/2018 Closed fracture of upper end of right fibula 03/07/2018 Chronic low back pain 02/04/2017 02/12/2017 Renal lesion 02/04/2017 04/08/2017 Degenerative disc disease at L5-S1 level 03/07/2018 Overview: With lumbar disc herniation Lumbar disc herniation 7 Immunizations Name Administration Dates Next Due COVID-19 (Pfizer) 03/22/2021,03/01/2021 Influenza Vaccine-quadrivalent 4 Years Plus 02/20,02/12/2017 Tdap 02/12/2017 Family History Medical History Relation Name Comments Diabetes Father CA Colon Maternal Grandfather Depression Mother CA Colon Paternal Grandfather Diabetes Paternal Grandfather Diabetes Paternal Grandmother Relation Name Status Comments Brother Alive Daughter Alive Father Alive on dialysis Maternal Grandfather Mother Alive Paternal Grandfather Paternal Grandmother Son Alive Social History Tobacco Use Types Packs/Day Years Used Date Smoking Tobacco: Every Day Cigarettes 1 24 Smokeless Tobacco: Current Tobacco Cessation:Ready to Q uit: Not Asked; Counseling Given: Not Answered Alcohol Use Standard Drinks/Week Comments No 0 (1 standard drink = 0.6 oz pur e alcohol) none Sex Assigned at Date Recorded Not on file Job Start Date Occupation Industry Not on file Not on file Not on file Last Filed Vital Signs Vital Sign Reading Time Taken Comments Blood Pressure 128/68 08/26/2023 10:26 AM EDT Pulse 73 08/26/2023 10:26 AM EDT Temperature 36.3 C (97.3 F) 07/09/2023 7:50 AM EDT Respiratory Rate 17 07/09/2023 7:50 AM EDT Oxygen Saturation 95% 08/26/2023 10:26 AM EDT Inhaled Oxygen Concentration - - Weight 95.3 kg (210 lb) 08/26/2023 10:26 AM EDT Height 170.2 cm (5' 7 ) 08/26/2023 10:26 AM EDT Body Mass Index 32.89 08/26/2023 10:26 AM EDT Plan of Treatment Health Maintenance Due Date Last Done Comments BMI CHECK/ADVISE 04/22/2024 07/09/2023, 03/2020, 05/15/2019, Additional history exists DEPRESSION SCREENING/FOLLOWUP 04/22/2024, 08/21/2023, 07/09/2023, Additional history exists SOCIAL NEEDS SCREENING 04/22/2024 07/09/2023, 2019 Covid-19 Vaccine (2022-05 4 season) 2024 03/22/2021, 03/01/2021 INFLUENZA (#1) 2024 03/01/2021, 02/21 (Refused), 01/15/2018 (Refused), Additional history exists BASELINE HEALTH EXAM 40-64 07/08/202507/08, 07/09/2023, 07/09/2023, Additional history exists TOBACCO CHECK/ADVISE 02/12/2026 02/13/2024, 08/26/2023, 08/21/2023, Additional history exists DTAP/TDAP/TD (2 - Td or Tdap) 02/12/2027 02/12/2017 CHOLESTEROL SCREENING 07/08/2028 07/09/2023 , 03/03/2019, 06/20/2016 COLON CANCER SCREENING 07/30/2028 07/31/2023 PNEUMOCOCCAL VACCINE FOR HIG H RISK PATIENTS (#1) 2046 Care Teams Finance Executive Relationship Specialty Start Date End Date Baldev Diop PA-C [address] [place] [address] PCP - General Internal Medicine 07/29/20
--- OUTSIDE RECORDS SUMMARY | 2025-04-21 09:35 | XMS_ITS | Encounter Summary ---
Author Organization [facility] Prior to 02/21/[address] [place] [address] Care Team Providers Care Acid Filler Name Role Phone Arturo Bansal MD Primary Care Provider + [phone] Baldev Diop PA-C Primary Care Provider + [phone] Reason for Visit * Reason Onset Date Comments Faxed Order 05/01/2020 Encounter Details Date Type Department Care Team Description 05/01/2020 Telephone Adult Medicine [address] [address] Arturo Bansal MD [address] [place] [phone] Faxed Order Social History Tobacco Use Types [...] * Telephone Encounter - Marisel Cast - 05/01/2020 12:03 PM EST [facility] IS FAXING ORDERS TO BE SIGN AND FAX BACK TO [phone]. documented in this encounter Plan of Treatment Not on file documented as of this encounter Visit Diagnoses Not on filedocumented in this encounter Care Teams Acid Filler Relationship Specialty Start Date End Date Arturo Bansal MD [address] [place] [address] PCP - General Internal Medicine 07/14/19 07/28/20 Baldev Diop PA-C [address] [place] [address] PCP - General Internal Medicine 07/29/20 documented as of this encounter
--- OUTSIDE RECORDS SUMMARY | 2025-04-21 09:35 | XMS_ITS | Encounter Summary ---
Author Organization [facility] Prior to 02/21/[address] [place] [address] Care Team Providers Care Reflow Operator Name Role Phone Arturo Bansal MD Primary Care Provider + [phone] Baldev Diop PA-C Primary Care Provider + [phone] Reason for Visit * Reason Onset Date Comments Faxed Order 04/10/2020 Encounter Details Date Type Department Care Team Description 04/10/2020 Telephone Adult Medicine [address] [address] Arturo Bansal MD [address] [place] [phone] Faxed Order Social History Tobacco Use Types [...] Marisel Cast - 04/10/2020 3:18 PM EST [facility] IS FAXING ORDERS TO BE SIGN AND FAX BACK TO [phone]. documented in this encounter Plan of Treatment Not on file documented as of this encounter Visit Diagnoses Not on filedocumented in this encounter Care Teams Reflow Operator Relationship Specialty Start Date End Date Arturo Bansal MD [address] [place] [address] PCP - General Internal Medicine 07/14/19 07/28/20 Baldev Diop PA-C [address] [place] [address] PCP - General Internal Medicine 07/29/20 documented as of this encounter
--- OUTSIDE RECORDS SUMMARY | 2025-04-21 09:35 | XMS_ITS | Encounter Summary ---
Author Organization [facility] Prior to 02/21/[address] [place] [address] Care Team Providers Care Gas Maker Helper Name Role Phone Baldev Diop PA-C Primary Care Provider [phone] Reason for Visit * Reason Onset Date Comments Faxed Order 11/16/2020 Encounter Details Date Type Department Care Team Description 11/16/2020 Telephone Adult Medicine [address] [address] Baldev Diop PA-C [address] [place] [address] Faxed Order Social History Tobacco Use Types [...] Marisel Cast - 11/16/2020 8:26 AM EDT [facility] IS FAXING ORDERS TO BE SIGN AND FAX BACK TO [phone]. documented in this encounter Plan of Treatment Not on file documented as of this encounter Visit Diagnoses Not on filedocumented in this encounter Care Teams Gas Maker Helper Relationship Specialty Start Date End Date Baldev Diop PA-C [address] [place] [address] PCP - General Internal Medicine 07/29/20 documented as of this encounter
--- OUTSIDE RECORDS SUMMARY | 2025-04-21 09:35 | XMS_ITS | Encounter Summary ---
Author Organization [facility] Prior to 02/21/[address] [place] [address] Care Team Providers Care Discharge Rn Name Role Phone Arturo Bansal MD Primary Care Provider + [phone] Baldev Diop PA-C Primary Care Provider +[phone] Reason for Visit * Reason Onset Date Comments Faxed Order 06/21/2020 Encounter Details Date Type Department Care Team Description 06/21/2020 Telephone Adult Medicine [address] [address] Arturo Bansal MD [address] [place] [address] Faxed Order Social History Tobacco Use Types [...] to be signed and faxed back to [phone] . documented in this encounter Plan of Treatment Not on file documented as of this encounter Visit Diagnoses Not on filedocumented in this encounter Care Teams Discharge Rn Relationship Specialty Start Date End Date Arturo Bansal MD [address] [place] [address] PCP - General Internal Medicine 07/14/19 07/28/20 Baldev Diop PA-C [address] [place] [address] PCP - General Internal Medicine 07/29/20 documented as of this encounter
--- OUTSIDE RECORDS SUMMARY | 2025-04-21 09:35 | XMS_ITS | Encounter Summary ---
Author Organization [facility] Prior to 02/21/[address] [place] [address] Care Team Providers Care Medicine Man Name Role Phone Sammy Valverde MD Primary Care Provider Un available Tej Yoon MD Primary Care Provider [phone] Arturo Bansal MD Primary Care Provider [phone] Baldev Diop PA-C Primary Care Provider +[phone] Encounter Details Date Type Department Care Team Description 04/21/2018 Hospital Medical Records [address] [place] [address] Christine Mitchell MD [address] [place] [address] [place] [address] Social History Tobacco Use Types Packs/Day Years [...] on filedocumented in this encounter Care Teams Medicine Man Relationship Specialty Start Date End Date Sammy Valverde MD PCP - General Internal Medicine 01/30/1802/09 Tej Yoon MD [address] [place] [address]1920 PCP - General Internal Medicine 02/10/19 07/13/19 Arturo Bansal MD [address] [place] [address] PCP - General Internal Medicine 07/14/19 07/28/20 Baldev Diop PA-C [address] [place] [address] PCP - General Internal Medicine 07/29/20 documented as of this encounter
--- OUTSIDE RECORDS SUMMARY | 2025-04-21 09:35 | XMS_ITS | Encounter Summary ---
Author Organization [facility] Prior to 02/21/[address] [place] [address] Care Team Providers Care Size Tester Name Role Phone Baldev Diop PA-C Primary Care Provider +[phone] Encounter Details Date Type Department Care Team Description 07/31/2023 Orders Only Medical Records [address] [place] [address] Radha Ragland MD [address] [place], [place] [phone] Social History Tobacco Use Types Packs/Day Years [...] on filedocumented in this encounter Care Teams Size Tester Relationship Specialty Start Date End Date Baldev Diop PA-C [address] [place], [place] [phone] PCP - General Internal Medicine 07/29/20 documented as of this encounter
--- OUTSIDE RECORDS SUMMARY | 2025-04-21 09:35 | XMS_ITS | Encounter Summary ---
Author Organization [facility] Prior to 02/21/[address] [place] [address] Care Team Providers Care Bale Breaker Operator Name Role Phone Arturo Bansal MD Primary Care Provider + [phone] Baldev Diop PA-C Primary Care Provider + [phone] Encounter Details Date Type Department Care Team Description 01/29/2020 Home Health Certification Medical Records [address] [place] [address] [facility] Social History Tobacco Use Types [...] on filedocumented in this encounter Care Teams Bale Breaker Operator Relationship Specialty Start Date End Date Arturo Bansal MD [address] [place] [address] PCP - General Internal Medicine 07/14/19 07/28/20 Baldev Diop PA-C [address] [place] [address] [phone] PCP - General Internal Medicine 07/29/20 documented as of this encounter
--- OUTSIDE RECORDS SUMMARY | 2025-04-21 09:35 | XMS_ITS | Encounter Summary ---
Author Organization [facility] Prior to 02/21/[address] [place] [address] Care Team Providers Care Bottling Line Operator Name Role Phone Baldev Diop PA-C Primary Care Provider [phone] Reason for Visit * Reason Onset Date Comments Faxed Order 11/08/2020 Encounter Details Date Type Department Care Team Description 11/08/2020 Telephone Adult Medicine [address] [address] Baldev Diop PA-C [address] [place] [address] [phone] Faxed Order Social History Tobacco Use Types [...] * Telephone Encounter - Jemma Keller - 11/08/2020 2:36 PM EDT Faxed order for medication reconciliation faxed to [facility] documented in this encounter Plan of Treatment Not on file documented as of this encounter Visit Diagnoses Not on filedocumented in this encounter Care Teams Bottling Line Operator Relationship Specialty Start Date End Date Baldev Diop PA-C [address] [place] [address] [phone] PCP - General Internal Medicine 07/29/20 documented as of this encounter
--- OUTSIDE RECORDS SUMMARY | 2025-04-21 09:35 | XMS_ITS | Encounter Summary ---
Author Organization [facility] Prior to 02/21/[address] [place] [address] Care Team Providers Care Oil Burner Mechanic Name Role Phone Arturo Bansal MD Primary Care Provider + [phone] Baldev Diop PA-C Primary Care Provider +[phone] Reason for Visit * Reason Onset Date Comments Faxed Order 01/17/2020 Encounter Details Date Type Department Care Team Description 01/17/2020 Telephone Adult Urgent Care - [address] [phone] Arturo Bansal MD [address] [place] [address] [phone] Faxed Order Social History Tobacco Use Types [...] * Telephone Encounter - Jacinto Nation - 01/22/2020 9:18 AM EDT Additional orders from [facility] to be signed and faxed back to [phone] * Telephone Encounter - Bi Watters - 01/17/2020 8:08 AM EDT Received faxed orders from [facility]. Please complete and send back to [phone] documented in this encounter Plan of Treatment Not on file documented as of this encounter Visit Diagnoses Not on filedocumented in this encounter Care Teams Oil Burner Mechanic Relationship Specialty Start Date End Date Arturo Bansal MD [address] [place] [address] PCP - General Internal Medicine 07/14/19 07/28/20 Baldev Diop PA-C [address] [place] [address] PCP - General Internal Medicine 07/29/20 documented as of this encounter
--- OUTSIDE RECORDS SUMMARY | 2025-04-21 09:35 | XMS_ITS | Encounter Summary ---
Author Organization [facility] Prior to 02/21/[address] [place] [address] Care Team Providers Care Student Support Counselor Name Role Phone Baldev Diop PA-C Primary Care Provider +[phone] Encounter Details Date Type Department Care Team Description 01/20/2021 Home Health Certification Medical Records [address] [place] [address] [facility] Social History Tobacco Use Types [...] on filedocumented in this encounter Care Teams Student Support Counselor Relationship Specialty Start Date End Date Baldev Diop PA-C [address] [place] [address] [phone] PCP - General Internal Medicine 07/29/20 documented as of this encounter
--- OUTSIDE RECORDS SUMMARY | 2025-04-21 09:35 | XMS_ITS | Encounter Summary ---
Author Organization [facility] Prior to 02/21/[address] [place] [address] Care Team Providers Care Weekday Babysitter Name Role Phone Anuja Nunes MD Primary Care Provider Unavail able Sammy Valverde MD Primary Care Provider Un available Tej Yoon MD Primary Care Provider [phone] Arturo Bansal MD Primary Care Provider + [phone] Baldev Diop PA-C Primary Care Provider +[phone] Reason for Visit * Reason Onset Date Comments TEST RESULTS 01/24/2018 Encounter Details Date Type Department Care Team Description 01/24/2018 Telephone Adult Medicine [address] [phone] Anuja Nunes MD TEST RESULTS Social History Tobacco Use Types Packs/Day Years [...] encounter Miscellaneous Notes * Telephone Encounter - Isidro Miranda C.M.A. - 01/24/2018 3:25 PM EDT Message left for patient to return my call. Results given to pt's mother on 01/20/2018. * Telephone Encounter - Isidro Miranda C.M.A. - 01/24/2018 3:22 PM EDT Notes Recorded by Mohan Russo M.A. on 01/20/2018 at 9:07 AM Telephone Information: Home Phone ?[phone] Work Phone ?[phone] Mobile ?[phone] Other ? [phone] Patient's mother Jessika was notified. * Telephone Encounter - Krissy Kuldip - 01/24/2018 2:56 PM EDT Inform patient: ANY URGENT OR ABNORMAL RESULTS WIILL RESULT IN A CALL BACK TO THE PATIENT JOHN. Patient only speaks [place] Type of test: :Labs Date test was performed: 01/15/18 Where was the test performed: [facility] Who ordered this test?: Anuja Santiago MD Is the doctor here today?: YES Can the message wait until the doctor returns?: YES IF PATIENT'S PCP IS NOT IN INSTRUCT PATIENT THAT THEY WILL RECEIVE A CALL BACK WHEN THE PCP IS IN THE OFFICE NEXT. documented in this encounter Plan of Treatment Not on file documented as of this encounter Visit Diagnoses Not on filedocumented in this encounter Care Teams Weekday Babysitter Relationship Specialty Start Date End Date Anuja Nunes MD PCP - General Internal Medicine 05/22/16 01/29/18 Sammy Valverde MD PCP - General Internal Medicine 01/30/1802/09 Tej Yoon MD [address] [place] [address] PCP - General Internal Medicine 02/10/19 07/13/19 Arturo Bansal MD [address] [place] [address] PCP - General Internal Medicine 07/14/19 07/28/20 Baldev Diop PA-C [address] [place] [address] PCP - General Internal Medicine 07/29/20 documented as of this encounter
--- OUTSIDE RECORDS SUMMARY | 2025-04-21 09:35 | XMS_ITS | Encounter Summary ---
Author Organization [facility] Prior to 02/21/[address] [place] [address] Care Team Providers Care Cyber Policy And Strategy Planner Name Role Phone Baldev Diop PA-C Primary Care Provider [phone] Reason for Visit * Reason Onset Date Comments Faxed Order 04/11/2021 home health cert and plan of care Encounter Details Date Type Department Care Team Description 04/11/2021 Telephone Adult Medicine [facility] [address] [place] [address] Baldev Diop PA-C [address] [place] [phone] Faxed Order (home health cert and plan of care) Social History Tobacco Use Types Packs/Day Years [...] * Telephone Encounter - Clair Austin - 04/11/2021 2:32 PM EST [facility] FAXING ORDERS TO BE SIGNED AND FAXED BACK TO [phone] documented in this encounter Plan of Treatment Not on file documented as of this encounter Visit Diagnoses Not on filedocumented in this encounter Care Teams Cyber Policy And Strategy Planner Relationship Specialty Start Date End Date Baldev Diop PA-C [address] [place] [address] PCP - General Internal Medicine 07/29/20 documented as of this encounter
--- OUTSIDE RECORDS SUMMARY | 2025-04-21 09:35 | XMS_ITS | Encounter Summary ---
Author Organization [facility] Prior to 02/21/[address] [place] [address] Care Team Providers Care Thread Milling Machine Set Up Operator Name Role Phone Arturo Bansal MD Primary Care Provider + [phone] Baldev Diop PA-C Primary Care Provider + [phone] Reason for Visit * Reason Onset Date Comments Faxed Order 04/10/2020 Encounter Details Date Type Department Care Team Description 04/10/2020 Telephone Adult Medicine [address] [address] Arturo Bansal MD [address] [place] [phone] Faxed Order Social History Tobacco Use Types [...] Marisel Cast - 04/10/2020 3:18 PM EST [facility] IS FAXING ORDERS TO BE SIGN AND FAX BACK TO [phone]. documented in this encounter Plan of Treatment Not on file documented as of this encounter Visit Diagnoses Not on filedocumented in this encounter Care Teams Thread Milling Machine Set Up Operator Relationship Specialty Start Date End Date Arturo Bansal MD [address] [place] [address] PCP - General Internal Medicine 07/14/19 07/28/20 Baldev Diop PA-C [address] [place] [address] PCP - General Internal Medicine 07/29/20 documented as of this encounter
--- OUTSIDE RECORDS SUMMARY | 2025-04-21 09:35 | XMS_ITS | Encounter Summary ---
Author Organization [facility] Prior to 02/21/[address] [place] [address] Care Team Providers Care Scrum Coach Name Role Phone Arturo Bansal MD Primary Care Provider + [phone] Baldev Diop PA-C Primary Care Provider + [phone] Encounter Details Date Type Department Care Team Description 06/29/2020 Home Health Certification Medical Records [address] [place] [address] [facility] Social History Tobacco Use Types Packs/Day Years [...] on filedocumented in this encounter Care Teams Scrum Coach Relationship Specialty Start Date End Date Arturo Bansal MD [address] [place] [address] PCP - General Internal Medicine 07/14/19 07/28/20 Baldev Diop PA-C [address] [place] [address] [id number] PCP - General Internal Medicine 07/29/20 documented as of this encounter
--- OUTSIDE RECORDS SUMMARY | 2025-04-21 09:35 | XMS_ITS | Encounter Summary ---
Author Organization [facility] Prior to 02/21/[address] [place] [address] Care Team Providers Care Esthetician/Owner Name Role Phone Anuja Nunes MD Primary Care Provider Unavail able Sammy Valverde MD Primary Care Provider Un available Tej Yoon MD Primary Care Provider [phone] Arturo Bansal MD Primary Care Provider + [phone] Baldev Diop PA-C Primary Care Provider +[phone] Encounter Details Date Type Department Care Team Description 06/13/2017 Brim And Crown Presser Report Medical Records [address] [place] [address] Elvin Varma MD Social History Tobacco Use [...] on filedocumented in this encounter Care Teams Esthetician/Owner Relationship Specialty Start Date End Date Anuja Nunes MD PCP - General Internal Medicine 05/22/16 01/29/18 Sammy Valverde MD PCP - General Internal Medicine 01/30/1802/09 Tej Yoon MD [address] [place] [address] [phone] PCP - General Internal Medicine 02/10/19 07/13/19 Arturo Bansal MD [address] [place] [phone] PCP - General Internal Medicine 07/14/19 07/28/20 Baldev Diop PA-C [address] [place] [address] PCP - General Internal Medicine 07/29/20 documented as of this encounter
--- OUTSIDE RECORDS SUMMARY | 2025-04-21 09:35 | XMS_ITS | Encounter Summary ---
Author Organization [facility] Prior to 02/21/[address] [place] [address] Care Team Providers Care Envelope Folding Machine Operator Name Role Phone Sammy Valverde MD Primary Care Provider Un available Tej Yoon MD Primary Care Provider [phone] Arturo Bansal MD Primary Care Provider [phone] Baldev Diop PA-C Primary Care Provider +[phone] Encounter Details Date Type Department Care Team Description 03/28/2018 Orders Only Gastroenterology - [address] [phone] Vic Bowie MD Social History Tobacco Use [...] on filedocumented in this encounter Care Teams Envelope Folding Machine Operator Relationship Specialty Start Date End Date Sammy Valverde MD PCP - General Internal Medicine 01/30/1802/09 Tej Yoon MD [address] [place] [address] [phone] PCP - General Internal Medicine 02/10/19 07/13/19 Arturo Bansal MD [address] [place] [address] [phone] PCP - General Internal Medicine 07/14/19 07/28/20 Baldev Diop PA-C [address] [place] [id number] PCP - General Internal Medicine 07/29/20 documented as of this encounter
--- OUTSIDE RECORDS SUMMARY | 2025-04-21 09:35 | XMS_ITS | Encounter Summary ---
Author Organization [facility] Prior to 02/21/[address] [place] [address] Care Team Providers Care Sales Representative Groceries Name Role Phone Baldev Diop PA-C Primary Care Provider [phone] Encounter Details Date Type Department Care Team Description 04/20/2021 Home Health Certification Medical Records [address] [place] [address] [facility] Social History Tobacco Use [...] on filedocumented in this encounter Care Teams Sales Representative Groceries Relationship Specialty Start Date End Date Baldev Diop PA-C [address] [place] [address] [phone] PCP - General Internal Medicine 07/29/20 documented as of this encounter
--- OUTSIDE RECORDS SUMMARY | 2025-04-21 09:35 | XMS_ITS | Encounter Summary ---
Author Organization [facility] Prior to 02/21/[address] [place] [address] Care Team Providers Care Peoplesoft Administrator Name Role Phone Arturo Bansal MD Primary Care Provider + [phone] Baldev Diop PA-C Primary Care Provider +[phone] Reason for Visit * Reason Onset Date Comments Faxed Order 04/21/2020 Encounter Details Date Type Department Care Team Description 04/21/2020 Telephone Adult Medicine [address] [address] Arturo Bansal MD [address] [place] [phone] Faxed Order Social History Tobacco Use Types [...] Telephone Encounter - Marisel Cast - 04/21/2020 2:04 PM EST [facility] IS FAXING ORDERS TO BE SIGN AND FAX BACK TO [phone]. documented in this encounter Plan of Treatment Not on file documented as of this encounter Visit Diagnoses Not on filedocumented in this encounter Care Teams Peoplesoft Administrator Relationship Specialty Start Date End Date Arturo Bansal MD [address] [place] [address] PCP - General Internal Medicine 07/14/19 07/28/20 Baldev Diop PA-C [address] [place] [address] PCP - General Internal Medicine 07/29/20 documented as of this encounter
--- OUTSIDE RECORDS SUMMARY | 2025-04-21 09:35 | XMS_ITS | Encounter Summary ---
Author Organization [facility] Prior to 02/21/[address] [place] [address] Care Team Providers Care Ornithology Teacher Name Role Phone Arturo Bansal MD Primary Care Provider + [phone] Baldev Diop PA-C Primary Care Provider + [phone] Encounter Details Date Type Department Care Team Description 08/11/2019 Home Health Certification Medical Records [address] [place] [address] [facility] Social History Tobacco Use Types [...] on filedocumented in this encounter Care Teams Ornithology Teacher Relationship Specialty Start Date End Date Arturo Bansal MD [address] [place] [address] PCP - General Internal Medicine 07/14/19 07/28/20 Baldev Diop PA-C [address] [place] [address] [phone] PCP - General Internal Medicine 07/29/20 documented as of this encounter
--- OUTSIDE RECORDS SUMMARY | 2025-04-21 09:35 | XMS_ITS | Clinical Summary ---
Author Organization [address] Address [address] [place] [phone] Phone Care Team Providers Care English Instructor Name Role Phone Baldev Diop Primary Care Provider [phone] Allergies Active Allergy Reactions Criticality Noted Date [...] film TID to the perianal skin 06/05/19 19 Active albuterol HFA (ProAir HFA) 90 mcg/actuation [...] 03/17/2025 Chronic low back pain without sciatica Cervical disc herniation 04/19/2024 Fibromyalgia 06/03/2019 Drug-seeking behavior 05/15/2019 Depression 08/08/2018 Anal fissure 01/31/2018 Overview (04/19/2024): Follows with general surgery Foraminal stenosis of cervical region 10/04/2017 Overview (04/19/2024): S/p x ray 10/04/2017 Acromioclavicular joint separation, left, sequel a 07/01/2017 Overview (04/19/2024): Follows with orthopedic surgery Anxiety 04/08/2017 Overview (04/19/2024): Follows with [facility] External hemorrhoids 02/12/2017 Positive urine drug screen 07/04/2016 Overview (04/19/2024): +ve cocaine Encounters Date Type Department Care Team Description 04/12/2025 9:20 AM EST Anesthesia Event [facility] [address] [place] [phone] Leonides Ken MD 04/12/2025 7:55 AM EST - 04/12/2025 11:59 PM EST Hospital Encounter [facility] [address] [place] [phone] Maira Ragland MD Georgette, Nathaniel, CRNA Spencer, Mark A, MD Gastroesophageal reflux disease, unspecified whether esophagitis present Discharge Disposition: Home or Self Care 04/07/2025 1:00 PM EST Office Visit Gastroenterology - [address] [phone] Kyle Lloyd DO Grade II internal hemorrhoids (Primary Dx); Hematochezia 03/23/2025 3:00 PM EST Office Visit Gastroenterology - [address] [phone] Prakash, Nan, COMMERCIAL LITIGATION ASSOCIATE Gastroesophageal reflux disease, unspecified whether esophagitis present (Primary Dx); Grade II internal hemorrhoids; History of adenomatous polyp of colon; Tobacco use disorder; Marijuana use, continuous 03/23/2025 Telephone Gastroenterology - [place] [address] [place] [address] [facility] 175 [facility] [address] [place] [address] Maira Ragland MD 02/18/2025 1:00 PM EDT Ancillary Procedure Pulmonology - [place] [address] [place] [address] [facility] [address] [place] [address] from Last 3 Months Immunizations [...] HISTORICAL COLONOSCOPY; COMMENT: 3 polyps 5 years Obie Medical History Medical History Date Comments Degenerative disc disease at L5-S1 level DX:Degenerative disc disease at L5-S1 level; COMMENT: with lumbar disc herniation. Cervical disc herniation DX:Cerv ical disc herniation External hemorrhoids 02/12/2017 DX:External hemorrhoids Positive urine drug screen 07/04/2016 DX:Po sitive urine drug screen; COMMENT: +ve cocaine Anxiety 04/08/2017 DX:Anxiety; COMM ENT: Follows with [facility] Tobacco use 04/08/2017 DX:Tobacco use Acromioclavicular joint sepa ration, left, sequela 07/01/2017 DX:Acromioclavicular joint separation, left, sequela; COMMENT: Follows with orthopedic surgery Foraminal stenosis of cervical region 10/04/2017 DX:Foraminal stenosis of cervical region; COMMENT: S/p x ray 10/04/2017 Anal fissure 01/31/2018 DX:Anal fissure; COMMENT: Follows with general surgery Depression 08/08/2018 DX:Depression GERD (gastroesophageal reflux disease) Fibromyalgia Colon polyp Family History Medical History Relation Name Comments [...] drink = 0.6 oz pur e alcohol) Interpersonal Safety Answer Date Record ed Physical Abuse Unrecognized value 04/12/2025 Verbal Abuse Unrecognized value 04/12/2025 Sex and Gender Information Value Date Recorded Sex Assigned at Not on file Legal Sex Male 12:15 AM EST Gender Identity Not on file Sexual Orientation Not on file Occupation Industry Job Start Date Job End Date out of work possibly disabled Not on file Not on file Not on file Last Filed Vital Signs Vital Sign Reading Time Taken Comments Blood Pressure 120/82 04/12/2025 9:52 AM EST Pulse 60 04/12/2025 9:52 AM EST Temperature 36.4 C (97.6 F) 04/12/2025 9:32 AM EST Respiratory Rate 16 04/12/2025 9:52 AM EST Oxygen Saturation 98% 04/12/2025 9:52 AM EST Inhaled Oxygen Concentration - - Weight 103 kg (226 lb) 04/12/2025 8:44 AM EST Height 170.2 cm (5' 7 ) 04/12/2025 8:44 AM EST Body Mass Index 35.4 04/12/2025 8:44 AM EST Plan of Treatment Upcoming Encounters Date Type Department Care Team (Late st Contact Info) Description 05/05/2025 8:00 AM EST Consult General Surgery - [address] [place] [phone] Hero Rocha MD [address] [place] [phone] 06/02/2025 1:30 PM EST Office Visit Adult Medicine [address] [phone] Baldev Diop PA [facility] [place] [phone] Health Maintenance Due Date Last Done [...] Type Associated Problems Recent Progress Patient-Stated? Author Autogenerat ed Goal Care Plan Autogenerated Problem No Josee Wharton Procedures Procedure Name Priority Date/Time Associated Diagnosis Comments EGD Routine 04/12/2025 9:31 AM EST Gastroesophageal reflux disease, unspecified whether esophagitis present TISSUE EXAM Routine 04/12/2025 9:26 AM EST Gastroesophageal reflux disease, unspecified whether esophagitis present LIPID PANEL WITH REFLEX TO DIRECT LDL [...] Recently Relevant to Health Maintenance Results * EGD Anesthesia - MAC; [facility] ENDOSCOPY (04/12/2025 9:31 AM EST) Anatomical Region Laterality Modality Endoscopy 04/12/2025 9:20 AM EST Impressions 04/12/2025 9:38 AM EST - Normal ampulla and second portion of the duodenum. - Erythematous duodenopathy. - Gastritis. Biopsied. - A single lesion suspicious for aberrant pancreas was found in the stomach. - Normal esophagus. Recommendation: - Discharge patient to home. - Await pathology results. - Follow an antireflux regimen. - Continue present medications. Narrative 04/12/2025 9:38 AM EST [facility] GI Patient Name: Cuong Terry Procedure Date: 04/12/2025 9:20 AM Date of : 1980 Age: 45 Gender: Male Note Status: Finalized Attending MD: Maira Ragland MD, Procedure Date No Time: 04/12/2025 Procedure: Upper GI endoscopy Indications: Esophageal reflux symptoms that persist despite appropriate therapy Providers: Maira Ragland MD Referring MD: Maira Ragland MD Medicines: Monitored Anesthesia Care Complications: No immediate complications. Estimated blood loss: Minimal. Estimated Blood Loss: Estimated blood loss was minimal. Procedure: Pre-Anesthesia Assessment: - Prior to the procedure, a History and Physical was performed, and patient medications and allergies were reviewed. The patient is competent. The risks and benefits of the procedure and the sedation options and risks were discussed with the patient. All questions were answered and informed consent was obtained. Patient identification and proposed procedure were verified by the physician, the nurse, the hand hardener and the central sterile supply technician in the pre-procedure area in the endoscopy suite. Mental Status Examination: alert and oriented. Airway Examination: normal oropharyngeal airway and neck mobility. Respiratory Examination: clear to auscultation. CV Examination: normal. Prophylactic Antibiotics: The patient does not require prophylactic antibiotics. Prior Anticoagulants: The patient has taken no anticoagulant or antiplatelet agents. ASA Grade Assessment: III - A patient with severe systemic disease. After reviewing the risks and benefits, the patient was deemed in satisfactory condition to undergo the procedure. The anesthesia plan was to use monitored anesthesia care (MAC). Immediately prior to administration of medications, the patient was re-assessed for adequacy to receive sedatives. The heart rate, respiratory rate, oxygen saturations, blood pressure, adequacy of pulmonary ventilation, and response to care were monitored throughout the procedure. The physical status of the patient was re-assessed after the procedure. After obtaining informed consent, the endoscope was passed under direct vision. Throughout the procedure, the patient's blood pressure, pulse, and oxygen saturations were monitored continuously. The Endoscope was introduced through the mouth, and advanced to the second part of duodenum. The upper GI endoscopy was accomplished without difficulty. The patient tolerated the procedure well. Findings: The ampulla and second portion of the duodenum were normal. Patchy mildly erythematous mucosa without active bleeding and with no stigmata of bleeding was found in the duodenal bulb. Segmental mild inflammation characterized by congestion (edema) and erythema was found in the gastric body and in the gastric antrum. Biopsies were taken with a cold forceps for histology. Estimated blood loss was minimal. A single umbilicated lesion measuring 5 mm in diameter was found in the stomach. The polyp was removed with a cold snare. Resection and retrieval were complete. Estimated blood loss was minimal. The cardia and gastric fundus were normal on retroflexion. The esophagus was normal. Procedure Code(s): --- Professional --- 68779, Esophagogastroduodenoscopy, flexible, transoral; with removal of tumor(s), polyp(s), or other lesion(s) by snare technique 87377, 59, Esophagogastroduodenoscopy, flexible, transoral; with biopsy, single or multiple Diagnosis Code(s): --- Professional --- K31.89, Other diseases of stomach and duodenum K29.70, Gastritis, unspecified, without bleeding K21.9, Gastro-esophageal reflux disease without esophagitis CPT copyright 202 [employer]. All rights reserved. The codes documented in this report are preliminary and upon career resource technician review may be revised to meet current compliance requirements. Maira Ragland MD 04/12/2025 9:37:55 AM This report has been signed electronically.Maira Ragland MD Number of Addenda: 0 Note Initiated On: 04/12/2025 9:20 AM Scope In: Scope Out: Endoscopy Department at [facility] - [address] [place] [phone] Procedure Note Maira Ragland MD - 04/12/2025 [facility] GI Patient Name: Cuong Terry Procedure Date: 04/12/2025 9:20 AM Date of : 1980 Age: 45 Gender: Male Note Status: Finalized Attending MD: Maira Ragland MD, Procedure Date No Time: 04/12/2025 Procedure: Upper GI endoscopy Indications: Esophageal reflux symptoms that persist despite appropriate therapy Providers: Maira Ragland MD Referring MD: Maira Ragland MD Medicines: Monitored Anesthesia Care Complications: No immediate complications. Estimated blood loss: Minimal. Estimated Blood Loss: Estimated blood loss was minimal. Procedure: Pre-Anesthesia Assessment: - Prior to the procedure, a History and Physicalwas performed, and patient medications and allergieswere reviewed. The patient is competent. The risks and benefits of the procedure and the sedation optionsand risks were discussed with the patient. Allquestions were answered and informed consent was obtained. Patient identification and proposed procedure were verified by the physician, the nurse, theanesthetist and the central sterile supply technician in the pre-procedure area in the endoscopy suite. Mental Status Examination: alertand oriented. Airway Examination: normal oropharyngeal airway and neck mobility. Respiratory Examination: clear to auscultation. CV Examination: normal. Prophylactic Antibiotics: The patient does notrequire prophylactic antibiotics. Prior Anticoagulants: The patient has taken no anticoagulant or antiplatelet agents. ASA Grade Assessment: III - A patient with severe systemic disease. After reviewing the risksand benefits, the patient was deemed in satisfactory condition to undergo the procedure. The anesthesia plan was to use monitored anesthesia care (MAC). Immediately prior to administration of medications, the patient was re-assessed for adequacy to receive sedatives. The heart rate, respiratory rate, oxygen saturations, blood pressure, adequacy of pulmonary ventilation, and response to care were monitored throughout the procedure. The physical status ofthe patient was re-assessed after the procedure. After obtaining informed consent, the endoscope was passed under direct vision. Throughout theprocedure, the patient's blood pressure, pulse, and oxygen saturations were monitored continuously. TheEndoscope was introduced through the mouth, and advanced tothe second part of duodenum. The upper GI endoscopy was accomplished without difficulty. The patienttolerated the procedure well. Findings: The ampulla and second portion of the duodenum were normal. Patchy mildly erythematous mucosa without active bleeding and with no stigmata of bleeding was foundin the duodenal bulb. Segmental mild inflammation characterized by congestion (edema) and erythema was found in the gastric body and in the gastric antrum. Biopsieswere taken with a cold forceps for histology. Estimated blood loss was minimal. A single umbilicated lesion measuring 5 mm indiameter was found in the stomach. The polyp was removedwith a cold snare. Resection and retrieval were complete. Estimated blood loss was minimal. The cardia and gastric fundus were normal on retroflexion. The esophagus was normal. Procedure Code(s): --- Professional --- 53430, Esophagogastroduodenoscopy, flexible, transoral; with removal of tumor(s), polyp(s), or other lesion(s) by snare technique 62537, 59, Esophagogastroduodenoscopy, flexible, transoral; with biopsy, single or multiple Diagnosis Code(s): --- Professional --- K31.89, Other diseases of stomach and duodenum K29.70, Gastritis, unspecified, without bleeding K21.9, Gastro-esophageal reflux disease without esophagitis CPT copyright 2020 [employer]. All rights reserved. The codes documented in this report are preliminary and upon career resource technician reviewmay be revised to meet current compliance requirements. Maira Ragland MD 04/12/2025 9:37:55 AM This report has been signed electronically.Maira Ragland MD Number of Addenda: 0 Note Initiated On: 04/12/2025 9:20 AM Scope In: Scope Out: Endoscopy Department at [facility] - [address] [place] [phone] IMPRESSION: - Normal ampulla and second portion of the duodenum. - Erythematous duodenopathy. - Gastritis. Biopsied. - A single lesion suspicious for aberrant pancreaswas found in the stomach. - Normal esophagus. Recommendation: - Discharge patient to home. - Await pathology results. - Follow an antireflux regimen. - Continue present medications. Maira Ragland MD GI~PROCEDURE ORDERABLES Fin al Result * Tissue exam (04/12/2025 9:26 AM EST) Final Diagnosis A. Stomach, body, biopsy: - Gastric antral- and oxyntic-type mucosa with rare foci of chronic inflammation - No active gastritis and no intestinal metaplasia identified. - No Helicobacter pylori are identified on hematoxylin and eosin stained sections. B. Submucosal mass, gastric antrum, biopsy: - Gastric antral-type mucosa with focal chronic inflammation and prominent surface hyperplastic change. - Focally prominent smooth muscle is present at the level of the muscularis mucosae. (See note.) - Immunohistochemical studies are performed to assess the spindle cells at the base of the mucosa and to assess the mononuclear cells in the lamina propria. The results are as follows: Desmin: The spindled cells are immunoreactive. CD117: Scattered mast cells are immunoreactive; the spindled cells are negative.. CAM5.2: Gastric glands and mucosa are immunoreactive; no infiltrate of single CAM5.2-positive cells is seen in the lamina propria. Interpretation: The spindle cell population shows evidence of (smooth) muscle differentiation with expression of desmin. There is no expression of CD117, arguing against a diagnosis of a gastrointestinal stromal tumor. There is no infiltrate of epithelial cells seen in the lamina propria, supporting interpretation of the mononuclear cells as inflammatory and/or stromal elements. There is no carcinoma identified. Note: This polypoid tissue fragment shows focally prominent smooth muscle at the base of the mucosa. It is possible that this represents a fold in the tissue with tangential sectioning of the muscularis mucosae and is not considered diagnostic of a smooth muscle neoplasm (leiomyoma). There is no gastrointestinal stromal tumor, no carcinoma, and no pancreatic heterotopia identified. 8:52 AM [facility] at 0852 EST Gross Description A. Gastric, Body, biopsies: Labeled gastric bod biopsies . Received in formalin are five irregular soft, rubbery, borjas to pink tissue fragments approximately ranging from to 0.2 cm to 0.4 cm at greatest diameters. The specimen is wrapped in paper and submitted in toto in one cassette, five pieces, multiple levels. B. Gastric, Antrum, gastric antrum submucosal mass: Labeled gastric ant, gastric a . Received in formalin is an approximately 1.1 cm in greatest diameter, rubbery, borjas to red polypoid tissue which is inked green at the base, bisected, wrapped in paper and submitted entirely in one cassette, two pieces, multiple levels. Av/DG 8:52 AM [facility] Disclaimer NOTE: The immunohistochemical tests and in situ hybridization tests were developed and their performance characteristics were determined by [facility]. They have not been cleared or approved by the U.S. Food and Drug Administration. The FDA has determined that such clearance or approval is not necessary. These tests are used for clinical purposes. They should not be regarded as investigational or for research. This laboratory is certified under the Clinical Laboratory Improvement Amendments of 1988 (CLIA) as qualified to perform high complexity clinical laboratory testing. (controls appropriate) Unless otherwise specified, all tissue is 10% NB formalin fixed and paraffin embedded. 8:52 AM [facility] Tissue Gastric corpus structure / Unknown 04/12/2025 9:26 AM EST 04/12/2025 10:19 AM EST Tissue specimen (specimen) Pyloric antrum structure / Unknown 04/12/2025 9:29 AM EST 04/12/2025 10:19 AM EST Maira Ragland MD LAB PATHOLOGY ORDERABLES Fi nal Result [facility] [address] [place] [address], [place] [phone] * (ABNORMAL) Lipid panel with reflex to direct LDL (10/28/2024 12:05 PM EDT) Cholesterol 181 0 - 200 mg/dL LAB CHEMISTRY METHOD 10/28/2024 3:26 PM EDT [facility] Triglycerides 346(H) 0 - 150 mg/dL LAB CHEMISTRY METHOD 10/28/2024 3:26 PM EDT [facility] HDL 38(L) >=40 mg/dL LAB CHEMISTRY METHOD 10/28/2024 3:26 PM EDT [facility] LDL Calculated 74 0 - 100 mg/dL LAB CHEMISTRY METHOD 10/28/2024 3:26 PM EDT [facility] VLDL Cholesterol Gabino 69.2 mg/dL LAB CHEMISTRY METHOD 10/28/2024 3:26 PM EDT [facility] Non HDL Chol. (LDL+VLDL) 143 <145 mg/dL LAB CHEMISTRY METHOD 10/28/2024 3:26 PM EDT [facility] Chol/HDL Ratio 4.8(H) 0.0 - 4.4 LAB CHEMISTRY METHOD 10/28/2024 3:26 PM EDT [facility] Blood Venous blood specimen / Unknown Venipuncture / Unknown 10/28/2024 12:05 PM EDT 10/28/2024 12:05 PM EDT Baldev GUY LAB BLOOD ORDERABLES Gavi l Result [facility] [address] [place] [address], * Depression Screening (02/13/2024) Depression Screening abstracted [...] Problems Noted Date Diagnosed Date Autogenerated Problem 04/09/2025 Insurance [facility] Care Teams English Instructor Relationship Specialty Start Date End Date Baldev Diop PA [address] [place] [phone] PCP - General Internal Medicine 03/23/25
--- OUTSIDE RECORDS SUMMARY | 2025-04-21 09:36 | XMS_ITS | Encounter Summary ---
Author Organization [facility] Prior to 02/21/[address] [place] [phone] Care Team Providers Care Housekeeper Child Care Name Role Phone Anuja Nunes MD Primary Care Provider Unavail able Sammy Valverde MD Primary Care Provider Un available Tje Yoon MD Primary Care Provider [phone] Arturo Bansal MD Primary Care Provider + [phone] Baldev Diop PA-C Primary Care Provider [phone] Encounter Details Date Type Department Care Team Description 01/21/2017 Hospital Medical Records [address] [place] [id number] Abstract, Provider Social History Tobacco Use Types [...] on filedocumented in this encounter Care Teams Housekeeper Child Care Relationship Specialty Start Date End Date Anuja Nunes MD PCP - General Internal Medicine 05/22/16 01/29/18 Sammy Valverde MD PCP - General Internal Medicine 01/30/1802/09 Tej Yoon MD [address] [place] [phone] PCP - General Internal Medicine 02/10/19 07/13/19 Arturo Bansal MD [address] [place] [phone] PCP - General Internal Medicine 07/14/19 07/28/20 Baldev Diop PA-C [address] [place] [address] PCP - General Internal Medicine 07/29/20 documented as of this encounter
--- OUTSIDE RECORDS SUMMARY | 2025-04-21 09:36 | XMS_ITS | Encounter Summary ---
Author Organization [facility] Prior to 02/21/[address] [place] [address] Care Team Providers Care Junior Bookkeeper Name Role Phone Baldev iDop PA-C Primary Care Provider [phone] Reason for Visit * Reason Onset Date Comments Faxed Order 10/03/2022 Certification Pe riod 10/03/2022--12/01/2022 Encounter Details Date Type Department Care Team Description 10/03/2022 Telephone Adult Medicine [address] [address] Baldev Diop PA-C [address] [place] [phone] Faxed Order (Certification Period 10/03/2022--12/01/2022 ) Social History Tobacco Use Types Packs/Day [...] * Telephone Encounter - Jacinto Nation - 10/03/2022 2:40 PM EDT Faxed orders from [facility], Certification Period 10/03/2022--12/01/2022, please sign, date and faxback to [phone] documented in this encounter Plan of Treatment Not on file documented as of this encounter Visit Diagnoses Not on filedocumented in this encounter Care Teams Junior Bookkeeper Relationship Specialty Start Date End Date Baldev Diop PA-C [address] [place] [address] PCP - General Internal Medicine 07/29/20 documented as of this encounter
--- OUTSIDE RECORDS SUMMARY | 2025-04-21 09:36 | XMS_ITS | Encounter Summary ---
Author Organization [facility] Prior to 02/21/[address] [place] [address] Care Team Providers Care Floral Manager Name Role Phone Sammy Valverde MD Primary Care Provider Un available Tej Yoon MD Primary Care Provider [phone] Arturo Bansal MD Primary Care Provider [phone] Baldev Diop PA-C Primary Care Provider + [phone] Encounter Details Date Type Department Care Team Description 09/02/2018 Platen Builder Up Report Medical Records [address] [place] [phone] Alan Irby Social History Tobacco Use Types Packs/Day Years [...] on filedocumented in this encounter Care Teams Floral Manager Relationship Specialty Start Date End Date Sammy Valverde MD PCP - General Internal Medicine 01/30/1802/09 Tej Yoon MD [address] [place] [phone] PCP - General Internal Medicine 02/10/19 07/13/19 Arturo Bansal MD [address] [place] [phone] PCP - General Internal Medicine 07/14/19 07/28/20 Baldev Diop PA-C [address] [place] [address] PCP - General Internal Medicine 07/29/20 documented as of this encounter
--- OUTSIDE RECORDS SUMMARY | 2025-04-21 09:36 | XMS_ITS | Encounter Summary ---
Author Organization [facility] Prior to 02/21/[address] [place] [address] Care Team Providers Care Plater Hot Dip Name Role Phone Baldev Diop PA-C Primary Care Provider +[phone] Encounter Details Date Type Department Care Team Description 05/31/2023 Home Health Certification Medical Records [address] [place] [address] [facility], [facility] Social History Tobacco Use Types Packs/Day [...] on filedocumented in this encounter Care Teams Plater Hot Dip Relationship Specialty Start Date End Date Baldev Diop PA-C [address] [place] [address] [phone] PCP - General Internal Medicine 07/29/20 documented as of this encounter
--- OUTSIDE RECORDS SUMMARY | 2025-04-21 09:36 | XMS_ITS | Encounter Summary ---
Author Organization [facility] Prior to 02/21/[address] [place] [address] Care Team Providers Care Director Of Distribution Name Role Phone Anuja Nunes MD Primary Care Provider Unavail able Sammy Valverde MD Primary Care Provider Un available Tej Yoon MD Primary Care Provider [phone] Arturo Bansal MD Primary Care Provider + [phone] Baldev Diop PA-C Primary Care Provider +[phone] Encounter Details Date Type Department Care Team Description 06/21/2016 Transfer Records Medical Records [address] [place] [address] Abstract, Provider Social History Tobacco Use Types [...] filedocumented in this encounter Care Teams Director Of Distribution Relationship Specialty Start Date End Date Anuja Nunes MD PCP - General Internal Medicine 05/22/16 01/29/18 Sammy Valverde MD PCP - General Internal Medicine 01/30/1802/09 Tej Yoon MD [address] [place] [address] [phone] PCP - General Internal Medicine 02/10/19 07/13/19 Arturo Bansal MD [address] [place] [address] PCP - General Internal Medicine 07/14/19 07/28/20 Baldev Diop PA-C [address] [place] [address] PCP - General Internal Medicine 07/29/20 documented as of this encounter
--- OUTSIDE RECORDS SUMMARY | 2025-04-21 09:36 | XMS_ITS | Encounter Summary ---
Author Organization [facility] Prior to 02/21/[address] [place] [address] Care Team Providers Care Installer Metal Flooring Name Role Phone Baldev Diop PA-C Primary Care Provider +[phone] Reason for Visit * Reason Onset Date Comments Faxed Order 06/13/2022 Order date at 8:00pm Encounter Details Date Type Department Care Team Description 06/13/2022 Telephone Adult Medicine [address] [address] Baldev Diop PA-C [address] [place] [address] Faxed Order (Order date 05/31/22 at 8:00pm) Social History Tobacco Use Types Packs/Day Years [...] encounter Miscellaneous Notes * Telephone Encounter - Sole Murillo - 06/13/2022 2:59 PM EST Faxed order from [facility], Order date 05/31/22 at 8:00pm. Please sign, date, and fax back. documented in this encounter Plan of Treatment Not on file documented as of this encounter Visit Diagnoses Not on filedocumented in this encounter Care Teams Installer Metal Flooring Relationship Specialty Start Date End Date Baldev Diop PA-C [address] [place] [address] PCP - General Internal Medicine 07/29/20 documented as of this encounter
--- OUTSIDE RECORDS SUMMARY | 2025-04-21 09:36 | XMS_ITS | Encounter Summary ---
Author Organization [facility] Prior to 02/21/[address] [place] [address] Care Team Providers Care Historical Site Guide Name Role Phone Baldev Diop PA-C Primary Care Provider [phone] Reason for Visit * Reason Onset Date Comments Faxed Order 10/02/2022 Order date 09/28 Encounter Details Date Type Department Care Team Description 10/02/2022 Telephone Adult Medicine [facility] [address] [place] [address] Baldev Diop PA-C [address] [place] [address] Faxed Order (Order date 09/28/2022) Social History Tobacco Use Types Packs/Day Years [...] * Telephone Encounter - Jacinto Nation - 10/02/2022 3:29 PM EDT Faxed orders from [employer] Order Date 09/28/2022, please sign, date and fax back to [phone] documented in this encounter Plan of Treatment Not on file documented as of this encounter Visit Diagnoses Not on filedocumented in this encounter Care Teams Historical Site Guide Relationship Specialty Start Date End Date Baldev Diop PA-C [address] [place] [address] PCP - General Internal Medicine 07/29/20 documented as of this encounter
--- OUTSIDE RECORDS SUMMARY | 2025-04-21 09:36 | XMS_ITS | Encounter Summary ---
Author Organization [email or web address] [facility] Prior to 02/21/[address] [place] [address] Care Team Providers Care Rougher Helper Name Role Phone Sammy Valverde MD Primary Care Provider Un available Tej Yoon MD Primary Care Provider [phone] Arturo Bansal MD Primary Care Provider [phone] Baldev Diop PA-C Primary Care Provider +[phone] Encounter Details Date Type Department Care Team Description 05/29/2018 Processor Solid Propellant Report Medical Records [address] [place] [address] Néstorishan Keaton [address] [place], [place] [id number] Social History Tobacco Use Types Packs/Day Years [...] on filedocumented in this encounter Care Teams Rougher Helper Relationship Specialty Start Date End Date Sammy Valverde MD PCP - General Internal Medicine 01/30/1802/09 Tej Yoon MD [address] [place] [address] [phone] PCP - General Internal Medicine 02/10/19 07/13/19 Arturo Bansal MD [address] [place] [address] PCP - General Internal Medicine 07/14/19 07/28/20 Baldev Diop PA-C [address] [place] [address] PCP - General Internal Medicine 07/29/20 documented as of this encounter
--- OUTSIDE RECORDS SUMMARY | 2025-04-21 09:36 | XMS_ITS | Encounter Summary ---
Author Organization [facility] Prior to 02/21/[address] [place] [address] Care Team Providers Care Fusing Machine Operator Name Role Phone Sammy Valverde MD Primary Care Provider Un available Tej Yoon MD Primary Care Provider [phone] Arturo Bansal MD Primary Care Provider [phone] Baldev Diop PA-C Primary Care Provider +[phone] Encounter Details Date Type Department Care Team Description 04/25/2018 Hospital Medical Records [address] [place] [address] Vic Bowie MD Social History Tobacco Use [...] on filedocumented in this encounter Care Teams Fusing Machine Operator Relationship Specialty Start Date End Date Sammy Valverde MD PCP - General Internal Medicine 01/30/1802/09 Tej Yoon MD [address] [place] [address] [phone] PCP - General Internal Medicine 02/10/19 07/13/19 Arturo Bansal MD [address] [place] [address] PCP - General Internal Medicine 07/14/19 07/28/20 Baldev Diop PA-C [address] [place] [address] PCP - General Internal Medicine 07/29/20 documented as of this encounter
--- OUTSIDE RECORDS SUMMARY | 2025-04-21 09:36 | XMS_ITS | Encounter Summary ---
Author Organization [facility] Prior to 02/21/[address] [place] [address] Care Team Providers Care Chip Silo Tender Name Role Phone Baldev Diop PA-C Primary Care Provider [phone] Reason for Visit * Reason Onset Date Comments Faxed Order 10/11/2021 Order date at 12:43am Encounter Details Date Type Department Care Team Description 10/11/2021 Telephone Adult Medicine [address] [address] Baldev Diop PA-C [address] [place] [address] Faxed Order (Order date 10/03/21 at 12:43am) Social History Tobacco Use Types Packs/Day Years [...] * Telephone Encounter - Sole Murillo - 10/11/2021 3:51 PM EDT Faxed order from [facility]. Order date 10/03/21 at 12:43am. Please sign, date, and fax back. documented in this encounter Plan of Treatment Not on file documented as of this encounter Visit Diagnoses Not on filedocumented in this encounter Care Teams Chip Silo Tender Relationship Specialty Start Date End Date Baldev Diop PA-C [address] [place] [address] PCP - General Internal Medicine 07/29/20 documented as of this encounter
--- OUTSIDE RECORDS SUMMARY | 2025-04-21 09:36 | XMS_ITS | Encounter Summary ---
Author Organization [facility] Prior to 02/21/[address] [place] [address] Care Team Providers Care Mixing Engineer Name Role Phone Tej Yoon MD Primary Care Provider [phone] Arturo Bansal MD Primary Care Provider + [phone] Baldev Diop PA-C Primary Care Provider [phone] Reason for Visit * Reason Onset Date Comments Faxed Order 03/04/2019 [facility] are Encounter Details Date Type Department Care Team Description 03/04/2019 Telephone Adult Medicine [address] [phone] Tej Yoon MD [address] [place] [address] [phone] Faxed Order ([facility] [place]) Social History Tobacco Use Types Packs/Day Years [...] encounter Miscellaneous Notes * Telephone Encounter - Grace Lancaster - 03/04/2019 2:27 PM EST Multiple faxed orders received from [facility] [place]. Please review, sign and fax back. documented in this encounter Plan of Treatment Not on file documented as of this encounter Visit Diagnoses Not on filedocumented in this encounter Care Teams Mixing Engineer Relationship Specialty Start Date End Date Tej Yoon MD [address] [place] [address] PCP - General Internal Medicine 02/10/19 07/13/19 Arturo Bansal MD [address] [place] [address] PCP - General Internal Medicine 07/14/19 07/28/20 Baldev Diop PA-C [address] [place] [address] PCP - General Internal Medicine 07/29/20 documented as of this encounter
--- OUTSIDE RECORDS SUMMARY | 2025-04-21 09:36 | XMS_ITS | Encounter Summary ---
Author Organization [facility] Prior to 02/21/[address] [place] [address] Care Team Providers Care Middle School Librarian Name Role Phone Sammy Valverde MD Primary Care Provider Un available Tej Yoon MD Primary Care Provider [phone] Arturo Bansal MD Primary Care Provider + [phone] Baldev Diop PA-C Primary Care Provider +[phone] Encounter Details Date Type Department Care Team Description 05/01/2018 Orders Only Medical Records [address] [place] [address] Vic Bowie MD Social History Tobacco Use [...] Date/Time Associated Diagnosis Comments OUTSIDE PATHOLOGY Routine 04/29/2018 documented in this encounter Results * OUTSIDE PATHOLOGY (04/29/2018) Vic Bowie MD OUTSIDE LAB documented in this encounter Visit Diagnoses Not on filedocumented in this encounter Care Teams Middle School Librarian Relationship Specialty Start Date End Date Sammy Valverde MD PCP - General Internal Medicine 01/30/1802/09 Tej Yoon MD [address] [place] [address] PCP - General Internal Medicine 02/10/19 07/13/19 Arturo Bansal MD [address] [place] [address] PCP - General Internal Medicine 07/14/19 07/28/20 Baldev Diop PA-C [address] [place] [address] [phone] PCP - General Internal Medicine 07/29/20 documented as of this encounter
--- OUTSIDE RECORDS SUMMARY | 2025-04-21 09:36 | XMS_ITS | Encounter Summary ---
Author Organization [facility] Prior to 02/21/[address] [place] [address] Care Team Providers Care Bath Attendant Name Role Phone Baldev Diop PA-C Primary Care Provider [phone] Encounter Details Date Type Department Care Team Description 08/09/2021 Home Health Certification Medical Records [address] [place] [address] [facility], [facility] Social History Tobacco Use [...] on filedocumented in this encounter Care Teams Bath Attendant Relationship Specialty Start Date End Date Baldev Diop PA-C [address] [place] [address] [phone] PCP - General Internal Medicine 07/29/20 documented as of this encounter
--- OUTSIDE RECORDS SUMMARY | 2025-04-21 09:36 | XMS_ITS | Encounter Summary ---
Author Organization [facility] Prior to 02/21/[address] [place] [address] Care Team Providers Care Breaker Layer Name Role Phone Baldev Diop PA-C Primary Care Provider [phone] Reason for Visit * Reason Onset Date Comments Faxed Order 12/13/2022 Encounter Details Date Type Department Care Team Description 12/13/2022 Telephone Adult Medicine [address] [address] Baldev Diop PA-C [address] [place] [address] Faxed Order Social History Tobacco Use Types [...] * Telephone Encounter - Lucero Dejesus - 12/13/2022 2:17 PM EDT [facility] care 12/02/22-01/30/23 documented in this encounter Plan of Treatment Not on file documented as of this encounter Visit Diagnoses Not on filedocumented in this encounter Care Teams Breaker Layer Relationship Specialty Start Date End Date Baldev Diop PA-C [address] [place], [place] [phone] PCP - General Internal Medicine 07/29/20 documented as of this encounter
--- OUTSIDE RECORDS SUMMARY | 2025-04-21 09:36 | XMS_ITS | Encounter Summary ---
Author Organization [facility] Prior to 02/21/[address] [place] [address] Care Team Providers Care Driving School Instructor Name Role Phone Baldev Diop PA-C Primary Care Provider [phone] Encounter Details Date Type Department Care Team Description 02/05/2022 Home Health Certification Medical Records [address] [place] [address] [facility], [facility] Social History Tobacco Use Types Packs/Day [...] on filedocumented in this encounter Care Teams Driving School Instructor Relationship Specialty Start Date End Date Baldev Diop PA-C [address] [place], [place] [phone] PCP - General Internal Medicine 07/29/20 documented as of this encounter
--- OUTSIDE RECORDS SUMMARY | 2025-04-21 09:36 | XMS_ITS | Encounter Summary ---
Author Organization [facility] Prior to 02/21/[address] [place] [address] Care Team Providers Care Etl Bi Developer Name Role Phone Baldev Diop PA-C Primary Care Provider [phone] Reason for Visit * Reason Onset Date Comments Faxed Order 01/25/2023 [facility] Order date 11/27/22 Encounter Details Date Type Department Care Team Description 01/25/2023 Telephone Adult Medicine [facility] [address] [place] [address] Baldev Diop PA-C [address] [place] [address] [phone] Faxed Order ([facility] Order date [...] on filedocumented in this encounter Care Teams Etl Bi Developer Relationship Specialty Start Date End Date Baldev Diop PA-C [address] [place] [address] PCP - General Internal Medicine 07/29/20 documented as of this encounter
--- OUTSIDE RECORDS SUMMARY | 2025-04-21 09:36 | XMS_ITS | Encounter Summary ---
Author Organization [facility] Prior to 02/21/[address] [place] [address] Care Team Providers Care Telephone Solicitor Supervisor Name Role Phone Tej Yoon MD Primary Care Provider [phone] Arturo Bansal MD Primary Care Provider + [phone] Baldev Diop PA-C Primary Care Provider +[phone] Reason for Visit * Reason Onset Date Comments Faxed Order 04/21/2019 Encounter Details Date Type Department Care Team Description 04/21/2019 Telephone Adult Medicine [address] [phone] Tej Yoon MD [address] [place] [address] [phone] Faxed Order Social History Tobacco Use Types [...] on filedocumented in this encounter Care Teams Telephone Solicitor Supervisor Relationship Specialty Start Date End Date Tej Yoon MD [address] [place] [address] PCP - General Internal Medicine 02/10/19 07/13/19 Arturo Bansal MD [address] [place] [address] PCP - General Internal Medicine 07/14/19 07/28/20 Baldev Diop PA-C [address] [place] [address] [phone] PCP - General Internal Medicine 07/29/20 documented as of this encounter
--- OUTSIDE RECORDS SUMMARY | 2025-04-21 09:36 | XMS_ITS | Encounter Summary ---
Author Organization [facility] Prior to 02/21/[address] [place] [address] Care Team Providers Care Thrill Performer Name Role Phone Tej Yoon MD Primary Care Provider [phone] Arturo Bansal MD Primary Care Provider + [phone] Baldev Diop PA-C Primary Care Provider + [phone] Encounter Details Date Type Department Care Team Description 07/01/2019 Home Health Certification Medical Records [address] [place] [address] [facility] Social History Tobacco Use Types Packs/Day [...] on filedocumented in this encounter Care Teams Thrill Performer Relationship Specialty Start Date End Date Tej Yoon MD [address] [place] [address] PCP - General Internal Medicine 02/10/19 07/13/19 Arturo Bansal MD [address] [place] [address] PCP - General Internal Medicine 07/14/19 07/28/20 Baldev Diop PA-C [address] [place] [address] [phone] PCP - General Internal Medicine 07/29/20 documented as of this encounter
--- OUTSIDE RECORDS SUMMARY | 2025-04-21 09:36 | XMS_ITS | Encounter Summary ---
Author Organization [facility] Prior to 02/21/[address] [place] [address] Care Team Providers Care Digital Forensics Examiner Name Role Phone Tej Yoon MD Primary Care Provider [phone] Arturo Bansal MD Primary Care Provider + [phone] Baldev Diop PA-C Primary Care Provider +[phone] Reason for Visit * Reason Onset Date Comments Faxed Order 05/28/2019 [facility][id number] Encounter Details Date Type Department Care Team Description 05/28/2019 Telephone Adult Medicine [address] [phone] Tej Yoon MD [address] [place] [address] [phone] Faxed Order ([facility] #[id number]) Social History Tobacco Use Types Packs/Day Years [...] Miscellaneous Notes * Telephone Encounter - Raven Madsen - 06/19/2019 1:36 PM EST More faxed orders received * Telephone Encounter - Raven Madsen - 06/17/2019 2:54 PM EST More faxed orders received * Telephone Encounter - Nia Smith - 05/28/2019 4:26 PM EST FAXED FROM [facility] IN DR. YOON'S BOX FOR SIGNATURE AND TO BE FAXED BACK TO [phone] documented in this encounter Plan of Treatment Not on file documented as of this encounter Visit Diagnoses Not on filedocumented in this encounter Care Teams Digital Forensics Examiner Relationship Specialty Start Date End Date Tej Yoon MD [address] [place] [address] PCP - General Internal Medicine 02/10/19 07/13/19 Arturo Bansal MD [address] [place] [address] [phone] PCP - General Internal Medicine 07/14/19 07/28/20 Baldev Diop PA-C [address] [place] [address] [phone] PCP - General Internal Medicine 07/29/20 documented as of this encounter
--- OUTSIDE RECORDS SUMMARY | 2025-04-21 09:36 | XMS_ITS | Encounter Summary ---
Author Organization [facility] Prior to 02/21/[address] [place] [address] Care Team Providers Care Firmware Manager Name Role Phone Anuja Nunes MD Primary Care Provider Unavail able Sammy Valverde MD Primary Care Provider Un available Tej Yoon MD Primary Care Provider [phone] Arturo Bansal MD Primary Care Provider + [phone] Baldev Diop PA-C Primary Care Provider +[phone] Encounter Details Date Type Department Care Team Description 06/21/2016 Release of Information Medical Records [address] [place] [address] Abstract, Provider Social History Tobacco Use Types [...] on filedocumented in this encounter Care Teams Firmware Manager Relationship Specialty Start Date End Date Anuja Nunes MD PCP - General Internal Medicine 05/22/16 01/29/18 Sammy Valverde MD PCP - General Internal Medicine 01/30/1802/09 Tej Yoon MD [address] [place] [address] PCP - General Internal Medicine 02/10/19 07/13/19 Arturo Bansal MD [address] [place] [address] PCP - General Internal Medicine 07/14/19 07/28/20 Baldev Diop PA-C [address] [place] [address] PCP - General Internal Medicine 07/29/20 documented as of this encounter
--- OUTSIDE RECORDS SUMMARY | 2025-04-21 09:36 | XMS_ITS | Encounter Summary ---
Author Organization [facility] Prior to 02/21/[address] [place] [address] Care Team Providers Care Welding Machine Operator Plasma Arc Name Role Phone Baldev Diop PA-C Primary Care Provider [phone] Encounter Details Date Type Department Care Team Description 06/06/2023 Telephone Adult Medicine [address] [address] Baldev Diop PA-C [address] [place] [address] Social History Tobacco Use Types Packs/Day Years [...] on filedocumented in this encounter Care Teams Welding Machine Operator Plasma Arc Relationship Specialty Start Date End Date Baldev Diop PA-C [address] [place] [address] PCP - General Internal Medicine 07/29/20 documented as of this encounter
--- OUTSIDE RECORDS SUMMARY | 2025-04-21 09:36 | XMS_ITS | Encounter Summary ---
Author Organization [facility] Prior to 02/21/[address] [place] [address] Care Team Providers Care Nursing Assistants Teacher Name Role Phone Tej Yoon MD Primary Care Provider [phone] Arturo Bansal MD Primary Care Provider + [phone] Baldev Diop PA-C Primary Care Provider +[phone] Reason for Visit * Reason Onset Date Comments [facility]axed Order [facility] Encounter Details Date Type Department Care Team Description 2019 Telephone Adult Medicine [address] [phone] Tej Yoon MD [address] [place] [address] [phone] Faxed Order ([facility] ) Social History Tobacco Use [...] SIGNATURE AND TO BE FAXED BACK TO [phone] documented in this encounter Plan of Treatment Not on file documented as of this encounter Visit Diagnoses Not on filedocumented in this encounter Care Teams Nursing Assistants Teacher Relationship Specialty Start Date End Date Tej Yoon MD [address] [place] [address] [phone] PCP - General Internal Medicine 02/10/19 07/13/19 Arturo Bansal MD [address] [place] [address] [phone] PCP - General Internal Medicine 07/14/19 07/28/20 Baldev Diop PA-C [address] [place] [address] PCP - General Internal Medicine 07/29/20 documented as of this encounter
--- OUTSIDE RECORDS SUMMARY | 2025-04-21 09:36 | XMS_ITS | Encounter Summary ---
Author Organization [facility] Prior to 02/21/[address] [place] [address] Care Team Providers Care Reach Truck Operator Name Role Phone Sammy Valverde MD Primary Care Provider Un available Tej Yoon MD Primary Care Provider [phone] Arturo Bansal MD Primary Care Provider [phone] Baldev Diop PA-C Primary Care Provider +[phone] Reason for Visit * Reason Onset Date Comments Faxed Order 01/23/2019 Encounter Details Date Type Department Care Team Description 01/23/2019 Telephone Adult Medicine [address] [address] Sammy Valverde MD Faxed Order Social History [...] 3:56 PM EDT Faxed orders received from [facility], please sign and fax back to [phone]. documented in this encounter Plan of Treatment Not on file documented as of this encounter Visit Diagnoses Not on filedocumented in this encounter Care Teams Reach Truck Operator Relationship Specialty Start Date End Date Sammy Valverde MD PCP - General Internal Medicine 01/30/1802/09 Tej Yoon MD [address] [place] [address] [phone] PCP - General Internal Medicine 02/10/19 07/13/19 Arturo Bansal MD [address] [place] [address] PCP - General Internal Medicine 07/14/19 07/28/20 Baldev Diop PA-C [address] [place] [address] [phone] PCP - General Internal Medicine 07/29/20 documented as of this encounter
--- OUTSIDE RECORDS SUMMARY | 2025-04-21 09:36 | XMS_ITS | Encounter Summary ---
Author Organization [facility] Prior to 02/21/[address] [place] [address] Care Team Providers Care Wardrobe Attendant Name Role Phone Baldev Diop PA-C Primary Care Provider [phone] Encounter Details Date Type Department Care Team Description 07/11/2021 Home Health Certification Medical Records [address] [place] [address] [facility], [facility] Social History Tobacco Use [...] on filedocumented in this encounter Care Teams Wardrobe Attendant Relationship Specialty Start Date End Date Baldev Diop PA-C [address] [place] [address] [id number] PCP - General Internal Medicine 07/29/20 documented as of this encounter
--- OUTSIDE RECORDS SUMMARY | 2025-04-21 09:36 | XMS_ITS | Encounter Summary ---
Author Organization [facility] Prior to 02/21/[address] [place] [address] Care Team Providers Care Drying Oven Attendant Name Role Phone Baldev Diop PA-C Primary Care Provider [phone] Encounter Details Date Type Department Care Team Description 10/03/2022 Home Health Certification Medical Records [address] [place] [address] [facility], [facility] Social History Tobacco Use [...] on filedocumented in this encounter Care Teams Drying Oven Attendant Relationship Specialty Start Date End Date Baldev Diop PA-C [address] [place] [address] [id number] PCP - General Internal Medicine 07/29/20 documented as of this encounter
--- OUTSIDE RECORDS SUMMARY | 2025-04-21 09:36 | XMS_ITS | Encounter Summary ---
Author Organization [facility] Prior to 02/21/[address] [place] [address] Care Team Providers Care Landing Scaler Name Role Phone Sammy Valverde MD Primary Care Provider Un available Tej Yoon MD Primary Care Provider [phone] Arturo Bansal MD Primary Care Provider [phone] Baldev Diop PA-C Primary Care Provider + [phone] Reason for Visit * Reason Onset Date Comments Faxed Order 12/30/2018 [facility] Encounter Details Date Type Department Care Team Description 12/30/2018 Telephone Adult Medicine [address] [id number] Sammy Valverde MD Faxed Order ([facility]) Social History Tobacco Use Types Packs/Day Years [...] encounter Miscellaneous Notes * Telephone Encounter - Shayla May - 01/22/2019 1:12 PM EDT [facility] Calling she needs these orders signed and faxed JOHN . * Telephone Encounter - Cha Pérez - 01/12/2019 3:23 PM EDT More orders to be signed and faxed * Telephone Encounter - Raven Madsen - 01/09/2019 2:27 PM EDT More faxed orders received from [facility] * Telephone Encounter - Cha Pérez - 12/30/2018 10:02 AM EDT More orders to be signed and faxed * Telephone Encounter - Lacey Morris - 12/30/2018 9:53 AM EDT Please review, sign and fax back orderst to [facility]. documented in this encounter Plan of Treatment Not on file documented as of this encounter Visit Diagnoses Not on filedocumented in this encounter Care Teams Landing Scaler Relationship Specialty Start Date End Date Sammy Valverde MD PCP - General Internal Medicine 01/30/1802/09 Tej Yoon MD [address] [place] [address] PCP - General Internal Medicine 02/10/19 07/13/19 Arturo Bansal MD [address] [place] [address] PCP - General Internal Medicine 07/14/19 07/28/20 Baldev Diop PA-C [address] [place] [address] PCP - General Internal Medicine 07/29/20 documented as of this encounter
--- OUTSIDE RECORDS SUMMARY | 2025-04-21 09:36 | XMS_ITS | Encounter Summary ---
Author Organization [facility] Prior to 02/21/[address] [place] [address] Care Team Providers Care Resaw Feeder Name Role Phone Tej Yoon MD Primary Care Provider [phone] Arturo Bansal MD Primary Care Provider + [phone] Baldev Diop PA-C Primary Care Provider + [phone] Encounter Details Date Type Department Care Team Description 07/01/2019 Home Health Certification Medical Records [address] [place] [address] [employer] [facility] Social History Tobacco Use Types [...] on filedocumented in this encounter Care Teams Resaw Feeder Relationship Specialty Start Date End Date Tej Yoon MD [address] [place] [address] PCP - General Internal Medicine 02/10/19 07/13/19 Arturo Bansal MD [address] [place] [address] PCP - General Internal Medicine 07/14/19 07/28/20 Baldev Diop PA-C [address] [place] [address] [phone] PCP - General Internal Medicine 07/29/20 documented as of this encounter
--- OUTSIDE RECORDS SUMMARY | 2025-04-21 09:36 | XMS_ITS | Encounter Summary ---
Author Organization [facility] Prior to 02/21/[address] [place] [address] Care Team Providers Care Information Security Officer Name Role Phone Baldev Diop PA-C Primary Care Provider [phone] Encounter Details Date Type Department Care Team Description 06/05/2022 Home Health Certification Medical Records [address] [place] [address] [facility], [facility] Social History Tobacco Use Types Packs/Day Years [...] on filedocumented in this encounter Care Teams Information Security Officer Relationship Specialty Start Date End Date Baldev Diop PA-C [address] [place] [address] [phone] PCP - General Internal Medicine 07/29/20 documented as of this encounter
--- OUTSIDE RECORDS SUMMARY | 2025-04-21 09:36 | XMS_ITS | Encounter Summary ---
Author Organization [facility] Prior to 02/21/[address] [place] [address] Care Team Providers Care Ross Lift Operator Name Role Phone Arturo Bansal MD Primary Care Provider + [phone] Baldev Diop PA-C Primary Care Provider +[phone] Reason for Visit * Reason Onset Date Comments Faxed Order 11/09/2019 Encounter Details Date Type Department Care Team Description 11/09/2019 Telephone Adult Medicine [address] [address] Arturo Bansal MD [address] [place] [address] Faxed Order Social History Tobacco Use Types [...] Marisel Cast - 11/09/2019 5:46 PM EDT [facility] IS FAXING ORDERS TO BE SIGN AND FAX BACK TO [phone]. documented in this encounter Plan of Treatment Not on file documented as of this encounter Visit Diagnoses Not on filedocumented in this encounter Care Teams Ross Lift Operator Relationship Specialty Start Date End Date Arturo Bansal MD [address] [place] [address] PCP - General Internal Medicine 07/14/19 07/28/20 Baldev Diop PA-C [address] [place] [address] PCP - General Internal Medicine 07/29/20 documented as of this encounter
--- OUTSIDE RECORDS SUMMARY | 2025-04-21 09:36 | XMS_ITS | Encounter Summary ---
Author Organization [facility] Prior to 02/21/[address] [place] [address] Care Team Providers Care Powder Mill Operator Name Role Phone Anuja Nunes MD Primary Care Provider Unavail able Sammy Valverde MD Primary Care Provider Un available Tej Yoon MD Primary Care Provider [phone] Arturo Bansal MD Primary Care Provider + [phone] Baldev Diop PA-C Primary Care Provider +[phone] Encounter Details Date Type Department Care Team Description 02/13/2017 [facility] Medical Records [address] [place] [address] Abstract, Provider Social History Tobacco Use Types [...] on filedocumented in this encounter Care Teams Powder Mill Operator Relationship Specialty Start Date End Date Anuja Nunes MD PCP - General Internal Medicine 05/22/16 01/29/18 Sammy Valverde MD PCP - General Internal Medicine 01/30/1802/09 Tej Yoon MD [address] [place] [address] PCP - General Internal Medicine 02/10/19 07/13/19 Arturo Bansal MD [address] [place] [address] PCP - General Internal Medicine 07/14/19 07/28/20 Baldev Diop PA-C [address] [facility] [place] [address] PCP - General Internal Medicine 07/29/20 documented as of this encounter
--- OUTSIDE RECORDS SUMMARY | 2025-04-21 09:36 | XMS_ITS | Encounter Summary ---
Author Organization [facility] Prior to 02/21/[address] [place] [address] Care Team Providers Care Drying Can Worker Name Role Phone Anuja Nunes MD Primary Care Provider Unavail able Sammy Valverde MD Primary Care Provider Un available Tej Yoon MD Primary Care Provider [phone] Arturo Bansal MD Primary Care Provider + [phone] Baldev Diop PA-C Primary Care Provider +[phone] Encounter Details Date Type Department Care Team Description 02/11/2017 [facility] Medical Records [address] [place] [address] Abstract, Provider Social History Tobacco Use Types [...] filedocumented in this encounter Care Teams Drying Can Worker Relationship Specialty Start Date End Date Anuja Nunes MD PCP - General Internal Medicine 05/22/16 01/29/18 Sammy Valverde MD PCP - General Internal Medicine 01/30/1802/09 Tej Yoon MD [address] [place] [address] PCP - General Internal Medicine 02/10/19 07/13/19 Arturo Bansal MD [address] [place] [address] PCP - General Internal Medicine 07/14/19 07/28/20 Baldev Diop PA-C [address] [place] [address] PCP - General Internal Medicine 07/29/20 documented as of this encounter
--- OUTSIDE RECORDS SUMMARY | 2025-04-21 09:36 | XMS_ITS | Encounter Summary ---
Author Organization [facility] Prior to 02/21/[address] [place] [address] Care Team Providers Care Dynamometer Repairer Name Role Phone Sammy Valverde MD Primary Care Provider Un available Tej Yoon MD Primary Care Provider [phone] Arturo Bansal MD Primary Care Provider [phone] Baldev Diop PA-C Primary Care Provider [phone] Encounter Details Date Type Department Care Team Description 01/14/2019 Home Health Certification Medical Records [address] [place] [address] [facility] Social History Tobacco Use Types Packs/Day [...] on filedocumented in this encounter Care Teams Dynamometer Repairer Relationship Specialty Start Date End Date Sammy Valverde MD PCP - General Internal Medicine 01/30/1802/09 Tej Yoon MD [address] [place] [address] [phone] PCP - General Internal Medicine 02/10/19 07/13/19 Arturo Bansal MD [address] [place] [address] PCP - General Internal Medicine 07/14/19 07/28/20 Baldev Diop PA-C [address] [place] [address] PCP - General Internal Medicine 07/29/20 documented as of this encounter
== END 2025-04-21 10:04 | disposition home or self-care (01) ==
LOC: HO.HPODS 09:22
PROVIDERS: Visit Provider Student in an Organized Health Care Education/Training Program
DX: S93.402A Sprain of unspecified ligament of left ankle, initial encounter (principal); M25.373 Other instability, unspecified ankle; M67.472 Ganglion, left ankle and foot; M25.872 Other specified joint disorders, left ankle and foot; M25.572 Pain in left ankle and joints of left foot; G89.29 Other chronic pain; M25.472 Effusion, left ankle
CPT/HCPCS: 20605; 99214

== ENCOUNTER → 2025-04-21 09:21 | Outpatient (BNVA) | payer OTHER, SELFPAY | PROVIDERS: Visit Provider Student in an Organized Health Care Education/Training Program | DX: S93.402A Sprain of unspecified ligament of left ankle, initial encounter (principal); M25.373 Other instability, unspecified ankle; M67.472 Ganglion, left ankle and foot; M25.572 Pain in left ankle and joints of left foot; G89.29 Other chronic pain | CPT/HCPCS: 20605; J1100; J2003; J3301 ==